=== PATIENT | female | born 1945 | race Caucasian/White ===

== ENCOUNTER 2021-06-26 16:26 | Emergency (ER) | payer BC, SELFPAY ==
--- NOTE | ~2021-06-26 | XR_ITS ---
EXAMINATION: X-RAY RIBS, RIGHT X-RAY SHOULDER, RIGHT CLINICAL INFORMATION: Status post fall, with pain COMPARISON: Chest x-ray 03/31/2021 TECHNIQUE: PA view of the chest and 3 additional views of the right-sided ribs. 3 views of the right shoulder FINDINGS: CHEST AND RIGHT RIBS: There are surgical clips over the right breast/axillary area. Normal cardiomediastinal silhouette. Adequate expansion of the lungs. No focal consolidation. No pleural effusion or pneumothorax. No acute osseous abnormality. Specifically no rib fracture is visualized. RIGHT SHOULDER: There is no acute fracture or dislocation. Mild narrowing of the glenohumeral and acromial clavicular joint spaces with associated hypertrophic change. There is a calcification of the rotator cuff tendons. XR/XR shoulder RT min 2V IMPRESSION: No acute disease within the chest. No acute osseous abnormality of the chest. Specifically, no rib fracture is visualized. Degenerative changes of the right shoulder. No acute fracture or dislocation. Calcific tendinitis.
--- NOTE | ~2021-06-26 | XR_ITS ---
EXAMINATION: X-RAY RIBS, RIGHT X-RAY SHOULDER, RIGHT CLINICAL INFORMATION: Status post fall, with pain COMPARISON: Chest x-ray 03/31/2021 TECHNIQUE: PA view of the chest and 3 additional views of the right-sided ribs. 3 views of the right shoulder FINDINGS: CHEST AND RIGHT RIBS: There are surgical clips over the right breast/axillary area. Normal cardiomediastinal silhouette. Adequate expansion of the lungs. No focal consolidation. No pleural effusion or pneumothorax. No acute osseous abnormality. Specifically no rib fracture is visualized. RIGHT SHOULDER: There is no acute fracture or dislocation. Mild narrowing of the glenohumeral and acromial clavicular joint spaces with associated hypertrophic change. There is a calcification of the rotator cuff tendons. XR/XR ribs RT min 3V w CXR1V IMPRESSION: No acute disease within the chest. No acute osseous abnormality of the chest. Specifically, no rib fracture is visualized. Degenerative changes of the right shoulder. No acute fracture or dislocation. Calcific tendinitis.
--- NOTE | ~2021-06-26 | CT_ITS ---
EXAMINATION: CT CHEST WITHOUT CONTRAST CLINICAL INFORMATION: Right upper lobe airspace opacity COMPARISON: None TECHNIQUE: Multidetector volumetric CT imaging of the chest was done. Axial MIP volume rendering provided. Sagittal and coronal reformatted images were obtained. This CT examination was performed using dose optimization techniques as appropriate, variously including the following: *Automated exposure control *Adjustment of mA and/or kV according to patient size (this includes techniques or standardized protocols for targeted exams where dose is matched to indication/reason for exam; i.e. extremities or head) *Use of iterative reconstruction technique DLP: 183 mGy-cm FINDINGS: BELT SEWER: Unremarkable LUNGS: There is nodularity in the right upper lobe subpleural as well as few micronodules seen through the left upper lobe and left lower lobe measured 0.6 cm in the left upper lobe, there is groundglass opacity nodule in the left lower lobe measured 2.5 cm there groundglass opacities micronodular nodularity in the lingula in the linear bronchiectasis with micronodularity in the right middle lobe is subpleural scarring seen on the right most likely related to postradiation therapy. MEDIASTINUM: The mediastinum is normal. PLEURA: There is no pleural effusion. No pleural mass or thickening. AXILLA: No lymphadenopathy. UPPER ABDOMEN: Limited for evaluation due to paucity of mesenteric fat. There is angiomyolipoma in the partially visualized left kidney measured 1.1 cm there is low-attenuation lesion in the interpolar area of left kidney questionably cyst OSSEOUS STRUCTURES: Unremarkable. CT/CT chest wo con IMPRESSION: Multiple small groundglass opacity nodules and right upper lobe and right middle lobe scarring. Groundglass opacities in the lingula and right middle lobe. Postsurgical/postradiation changes in subpleural area right lung. No mediastinal lymphadenopathy. 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 Fleischner guidelines were followed.
--- NOTE | ~2021-06-26 | CT_ITS ---
EXAMINATION: CT HEAD WITHOUT CONTRAST CT CERVICAL SPINE WITHOUT CONTRAST CLINICAL INFORMATION: Right-sided neck pain. Fall. COMPARISON: None available. TECHNIQUE: Contiguous axial imaging was performed from the skull base to vertex without intravenous administration of contrast. Contiguous axial imaging was performed from the upper chest through the skull base without intravenous administration of contrast. Coronal and sagittal reformats were obtained at the acquisition workstation. This CT examination was performed using dose optimization techniques as appropriate, variously including the following: *Automated exposure control. *Adjustment of mA and/or kV according to patient size (this includes techniques or standardized protocols for targeted exams where dose is matched to indication/reason for exam; i.e. extremities or head). *Use of iterative reconstruction technique. DLP: 851 mGy-cm FINDINGS: Head: There is no evidence of acute intracranial hemorrhage or edematous territorial infarction. A few foci of hypoattenuation in the periventricular and deep white matter are consistent with mild microangiopathy. Solitario-white matter differentiation is preserved. The ventricles are normal in size and configuration. No evidence for obstructive hydrocephalus. No abnormal mass effect or midline shift. No extra-axial fluid collections. Calcific atherosclerotic disease of the intracranial internal carotid and vertebral arteries. No hyperdense vessel sign. Small subcutaneous inclusion cyst along the left posterior vertex. No acute soft tissue or osseous abnormalities. Moderate mucosal thickening of the left sphenoid air cell. Mild mucosal thickening of the remaining paranasal sinuses. The mastoid air cells and middle ear cavities are clear. Bilateral lens extractions. Cervical Spine: The atlantooccipital and atlantoaxial articulations remain well aligned. Mild reversal the normal cervical lordosis centered on C6-C7. Otherwise, normal anatomic alignment. No evidence of acute fracture or subluxation. The vertebral body heights are maintained. Advanced degenerative disc disease at C6-C7. Moderate degenerative disc disease at all additional cervical levels. Associated disc/osteophyte complex formation. Facet and uncovertebral joint arthropathy leads to osseous encroachment on the neural foramina at C4-C5 and C6-C7. There is no prevertebral soft tissue swelling. Partially visualized soft tissue edema/hematoma in the right supraclavicular soft tissues deep to the inferior aspect of the sternocleidomastoid muscle. Otherwise, the thyroid gland and remaining cervical soft tissues are normal in appearance. Partially visualized irregular airspace opacity in the anterior subpleural aspect of the right upper lobe. CT/CT cervical spine wo con IMPRESSION: 1. No evidence of acute intracranial hemorrhage or edematous territorial infarction. Mild underlying microangiopathy. 2. No evidence of acute fracture or traumatic subluxation of the cervical spine. Moderate multilevel degenerative spondyloarthropathy of the cervical spine. 3. Partially visualized on this exam, there appears to be soft tissue edema/hematoma in the right supraclavicular soft tissues deep to the anterior aspect of the sternocleidomastoid muscle. 4. Partially visualized irregular airspace opacity in the anterior subpleural aspect of the right upper lobe. This is better assessed with dedicated CT chest.
[2021-06-26 16:33] VITALS: BP 162/84; PULSE 69; O2SAT 97; BMI 18.6
[2021-06-26 16:37] VITALS: BP 184/84; PULSE 67; RESP 18; TEMP 36.7; O2SAT 97
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
[2021-06-26] MEDS: Acetaminophen 325 MG TABLET 975 MG PO (17:28)
[2021-06-26 18:44] VITALS: BP 159/78; PULSE 62; RESP 18; TEMP 36.8; O2SAT 97
[2021-06-26 20:33] VITALS: BP 165/77; PULSE 88; RESP 16; O2SAT 98
[2021-06-26] MEDS: oxyCODONE HCl Immed Release 5 MG TABLET PO (20:41)
== END 2021-06-26 23:09 | disposition home or self-care (01) ==
PROVIDERS: Emergency Provider Emergency Medicine; PCP Family Medicine
DX: S20.213A Contusion of bilateral front wall of thorax, initial encounter (principal); S09.90XA Unspecified injury of head, initial encounter; M54.6 Pain in thoracic spine; M54.50 Low back pain, unspecified; M25.511 Pain in right shoulder; M54.2 Cervicalgia; W10.9XXA Fall (on) (from) unspecified stairs and steps, initial encounter; Y93.9 Activity, unspecified; Y92.9 Unspecified place or not applicable; Y99.9 Unspecified external cause status; Z79.899 Other long term (current) drug therapy
CPT/HCPCS: 70450; 71101; 71250; 72125; 73030; 99284

== ENCOUNTER 2024-08-01 02:13 | Emergency (ER) | payer BC, MEDICARE, SELFPAY ==
--- NOTE | ~2024-08-01 | CT_ITS ---
CLINICAL HISTORY: Left renal colic? Stone CT abdomen and pelvis without IV or oral contrast Comparison: None Findings: Reticular nodular opacities and bronchial wall thickening lung bases probably inflammatory. No dependent layering pleural effusions. The heart is not enlarged. 2 mm obstructing calculus left UVJ with renal edema and rgep-mr-eksaavek hydroureteronephrosis on the left. No evidence of obstructive uropathy on the right.Partially decompressed urinary bladder. Evaluation of the liver, spleen, adrenal glands and pancreas demonstrates no lesions. It should be noted that isodense masses may be obscured in the absence of intravenous contrast. No radiopaque gallstones. Increased stool burden. No pathologically enlarged lymph nodes . No ascites demonstrated. Postmenopausal uterine atrophy. No compression fractures. Degenerative spondylosis with minimal listhesis L4-5. Discogenic changes. Impression: 1. 2 mm obstructing calculus left UVJ with renal edema and [id number] hydroureteronephrosis on the left. 2. No evidence of obstructive uropathy on the right. 3. Increased stool burden. Reticular nodular opacities both lung bases probably inflammatory. Mild bronchial wall thickening. This document has been electronically signed by: Vicente Hahn MD on 08/01/2024 06:21:54
[2024-08-01 02:18] VITALS: BP 140/92; BP 187/96; PULSE 82; PULSE 94; RESP 22; TEMP 36.8; O2SAT 95; O2SAT 97; BMI 18.4
[2024-08-01 02:20] VITALS: TEMP 37.5
--- NOTE | 2024-08-01 02:20 | ECG_ITS ---
Test Reason : ABD PAIN Blood Pressure : */* mmHG Vent. Rate : 80 BPM Atrial Rate : 80 BPM P-R Int : 162 ms QRS Dur : 108 ms QT Int : 412 ms P-R-T Axes : 78 -68 56 degrees QTcB Int : 475 ms Normal sinus rhythm Left anterior fascicular block Minimal voltage criteria for LVH, may be normal variant ( Bala product ) Septal infarct , age undetermined Abnormal ECG When compared with ECG of 20-Jul-2011 12:22, No significant changes seen Referred By: Olga Huang Electronically Signed By: Christian Shine
[2024-08-01 02:35] LABS: MANUAL DIFF FLAG NO
[2024-08-01 02:36] LABS: Basophils Absolute Auto 0.1 X10*3/uL (0.0-0.2); Basophils Percent Auto 0.5 % (0-2); Eosinophils Percent Auto 0.3 % (0-4); Hematocrit 38.5 % (37.0-47.0); Hemoglobin 13.3 g/dl (12.0-16.0); Imm Gran Abs Auto 0.02 X10*3/uL (0.00-0.03); Imm Gran Pct Auto 0.2 % (0.0-0.4); Lymphocytes Absolute Auto 1.7 X10*3/uL (1.2-4.9); Lymphocytes Percent Auto 17.9 % (20-40); Mean Corpuscular HGB Conc 34.5 g/dl (31.0-35.0); Mean Corpuscular Hemoglobin 32.2 pg (27.0-33.0); Mean Corpuscular Volume 93.2 fL (80.0-98.0); Monocytes Absolute Auto 0.3 X10*3/uL (0.1-1.2); Monocytes Percent Auto 3.2 % (2-11); Neutrophils Absolute Auto 7.4 x10*3/uL (2.0-8.3); Neutrophils Percent Auto 77.9 % (45-73); Platelet Count 208 X10*3/uL (160-400); Red Blood Count 4.13 X10*6/uL (4.20-5.50); Red Cell Distribution Width 13.5 % (11.0-16.0); White Blood Count 9.6 X10*3/uL (4.8-10.8)
[2024-08-01 02:41] LABS: INTERNATIONAL NORM RATIO 1.1 (0.9-1.1); Prothrombin Time 12.4 SEC (10.9-12.4)
[2024-08-01] MEDS: Acetaminophen 1,000 MG/100 ML PIGGYBACK 400 MG IV (02:43)
[2024-08-01] MEDS: 0.9 % Sodium Chloride 1,000 ML 999 ML IV (02:43)
--- NOTE | 2024-08-01 02:50 | ED.ABDPAIN ---
HPI - Abdominal Pain General Chief Complaint: Abdominal Pain Stated Complaint: abdominal pain/urinary discomfort Time Seen by Provider: 08/01/24 02:34 Source: patient Mode of arrival: EMS Limitations: no limitations History of Present Illness ED Provider: HPI narrative: Patient no significant abdominal complaints in the past noticed sudden onset of left lower abdominal pain at 19:00 yesterday with nausea vomiting patient has been having dull pain in left flank area for last 2 weeks no history of kidney stone no history of diverticulitis no fever no chills patient has some loose bowels also earlier denies any urinary complaints Related Data Previous Rx's ?Medication ?Instructions ?Recorded tramadol 50 mg tablet 50 mg PO TID PRN pain #9 tabs 06/26/21 ibuprofen 600 mg tablet 600 mg PO Q6H PRN fever or pain 08/01/24 #30 tabs oxycodone 5 mg tablet 5 mg PO Q6H PRN pain #20 tabs 08/01/24 tamsulosin 0.4 mg capsule (Flomax) 0.4 mg PO BEDTIME #7 caps 08/01/24 Allergies Allergy/AdvReac Type Severity Reaction Status Date / Time From REGLAN Allergy Unknown AGITATION Uncoded 08/01/24 02:20 Review of Systems Review of Systems Yes all other systems are reviewed and are negative PMFSH Social History Social History Alcohol intake: current Alcohol intake frequency: 0-2 drinks per day Alcohol type: hard liquor Patient Tobacco Use Status: Never used Tobacco Smoked in Last 30 Days: No Use of substances other than those prescribed or required for medical reasons: Yes Substance Use Type: Marijuana Advance Directives: Yes Advance Directives Information Provided: Yes Advance Directives on File: No Do you have a plan to hurt others: No Plan Physical Exam ED Vital Signs: Vital Signs - 24 hr 08/01/24 02:18 08/01/24 02:20 08/01/24 04:51 Temperature 98.3 F 99.5 F 98.4 F Pulse Rate 82 81 Respiratory Rate 22 H 16 Blood Pressure 187/96 H 170/83 H Pulse Oximetry 95 95 Oxygen Delivery Method Room Air Room Air 08/01/24 06:24 Temperature Pulse Rate 84 Respiratory Rate 14 Blood Pressure 124/84 Pulse Oximetry 96 Oxygen Delivery Method Room Air BMI result Body Mass Index 18.4 Appearance: Alert. Oriented X3. No acute distress. Eyes: PERRLA, No Nystagmus ENT: Pharynx normal. Oral Mucosa moist Neck: Normal inspection. Neck supple. CVS: Normal heart rate and rhythm. Pulses normal. Respiratory: No respiratory distress. Equal air entry bilateral, no wheezing/rales/rhonchi Abdomen: Soft and deep tenderness left lower quadrant with guarding Bowel sounds are present, no mass palpable, less CVA tenderness Skin: Skin warm and dry. Normal skin color. Normal skin turgor. Extremities: No lower extremity edema. No calf tenderness Neuro: Oriented X 3. No motor deficit. No sensory deficit.No cerebellar signs , cranial nerves II-XII intact Medical Decision Making Medical Decision Making [facility] Narrative: Patient's sudden onset of left lower abdominal and left flank pain workup showed has a 2 mm UVJ stone patient's pain improved after IV hydration and pain medication at this time patient does not any pain patient advised to follow up with urologist Pain medication as prescribed Differential Diagnosis Differential Diagnoses: The differential diagnosis associated with the presentation includes Renal colic slight diverticulitis/UTI Admission/Observation Consideration of admission/observation: Escalation of care including admission/observation considered Lab Data [facility] Lab Attestation statement: I reviewed the patient's lab results. 08/01/24 02:31 08/01/24 02:31 Labs: Lab Results 08/01/24 08/01/24 08/01/24 Range/Units 02:30 02:31 02:45 WBC 9.6 (4.8-10.8) X10*3/uL RBC 4.13 L (4.20-5.50) X10*6/uL Hgb 13.3 (12.0-16.0) g/dl Hct 38.5 (37.0-47.0) % MCV 93.2 (80.0-98.0) fL MCH 32.2 (27.0-33.0) pg MCHC 34.5 (31.0-35.0) g/dl RDW 13.5 (11.0-16.0) % Plt Count 208 (160-400) X10*3/uL MPV 10.0 (9.4-12.3) fL Immature Gran % (Auto) 0.2 (0.0-0.4) % Neut % (Auto) 77.9 H (45-73) % Lymph % (Auto) 17.9 L (20-40) % Clinch % (Auto) 3.2 (2-11) % Eos % (Auto) 0.3 (0-4) % Baso % (Auto) 0.5 (0-2) % Lymph # (Auto) 1.7 (1.2-4.9) X10*3/uL Clinch # (Auto) 0.3 (0.1-1.2) X10*3/uL Eos # (Auto) 0.0 (0.0-0.4) X10*3/uL Baso # (Auto) 0.1 (0.0-0.2) X10*3/uL Abs Immat Gran (auto) 0.02 (0.00-0.03) X10*3/uL Absolute Neuts (auto) 7.4 (2.0-8.3) x10*3/uL Absolute Nucleated RBC 0.000 (0.0-0.012) X10*3/uL Nucleated RBC % (auto) 0.0 (0.0-0.2) /100WBC PT 12.4 (10.9-12.4) SEC INR 1.1 (0.9-1.1) Sodium 142 (135-145) mmol/L Potassium 4.5 (3.3-5.1) mmol/L Chloride 105 (96-108) mmol/L Carbon Dioxide 25 (22-29) mmol/L Anion Gap 17 (12-20) BUN 13 (9-16) mg/dL Creatinine 0.73 (0.5-1.4) mg/dL Estim Creat Clear Calc 48.7 Estimated GFR > 60 Random Glucose 167 H (60-115) mg/dL Lactic Acid 1.4 (0.5-2.0) mmol/L Calcium 9.9 (8.4-10.2) mg/dL Magnesium 2.1 (1.6-2.6) mg/dL Total Bilirubin 0.8 (0.0-1.0) mg/dL AST 29 (5-31) U/L ALT 20 (0-31) U/L Alkaline Phosphatase 96 (39-117) U/L Troponin I High Sens < 2.7 (<3.5-17.0) ng/L Total Protein 7.8 (6.5-8.0) g/dL Albumin 4.9 (3.5-5.0) g/dL Lipase 39 (8-78) U/L Urine Color Urine Appearance Urine pH (5.0-9.0) Ur Specific [place] (1.005-1.025) Urine Protein (Neg-Trace) mg/dL Urine Glucose (UA) (Negative) mg/dL Urine Ketones (Negative) mg/dL Urine Blood (Negative) Urine Nitrite (Negative) Ur Leukocyte Esterase (Negative) Urine RBC (0-2) /HPF Urine WBC (0-5) /HPF Ur Squamous Epith Cells (0-2) /HPF Urine Bacteria (None Seen) Hyaline Casts (0-2) /LPF Influenza Type A (PCR) NEGATIVE (Negative) Influenza Type B (PCR) NEGATIVE (Negative) RSV RNA Qual (PCR) NEGATIVE (Negative) SARS-CoV-2 RNA (RT-PCR) NEGATIVE (Negative) 08/01/24 Range/Units 03:17 WBC (4.8-10.8) X10*3/uL RBC (4.20-5.50) X10*6/uL Hgb (12.0-16.0) g/dl Hct (37.0-47.0) % MCV (80.0-98.0) fL MCH (27.0-33.0) pg MCHC (31.0-35.0) g/dl RDW (11.0-16.0) % Plt Count (160-400) X10*3/uL MPV (9.4-12.3) fL Immature Gran % (Auto) (0.0-0.4) % Neut % (Auto) (45-73) % Lymph % (Auto) (20-40) % Clinch % (Auto) (2-11) % Eos % (Auto) (0-4) % Baso % (Auto) (0-2) % Lymph # (Auto) (1.2-4.9) X10*3/uL Clinch # (Auto) (0.1-1.2) X10*3/uL Eos # (Auto) (0.0-0.4) X10*3/uL Baso # (Auto) (0.0-0.2) X10*3/uL Abs Immat Gran (auto) (0.00-0.03) X10*3/uL Absolute Neuts (auto) (2.0-8.3) x10*3/uL Absolute Nucleated RBC (0.0-0.012) X10*3/uL Nucleated RBC % (auto) (0.0-0.2) /100WBC PT (10.9-12.4) SEC INR (0.9-1.1) Sodium (135-145) mmol/L Potassium (3.3-5.1) mmol/L Chloride (96-108) mmol/L Carbon Dioxide (22-29) mmol/L Anion Gap (12-20) BUN (9-16) mg/dL Creatinine (0.5-1.4) mg/dL Estim Creat Clear Calc Estimated GFR Random Glucose (60-115) mg/dL Lactic Acid (0.5-2.0) mmol/L Calcium (8.4-10.2) mg/dL Magnesium (1.6-2.6) mg/dL Total Bilirubin (0.0-1.0) mg/dL AST (5-31) U/L ALT (0-31) U/L Alkaline Phosphatase (39-117) U/L Troponin I High Sens (<3.5-17.0) ng/L Total Protein (6.5-8.0) g/dL Albumin (3.5-5.0) g/dL Lipase (8-78) U/L Urine Color Yellow Urine Appearance Clear Urine pH 8.5 (5.0-9.0) Ur Specific [place] 1.010 (1.005-1.025) Urine Protein Negative (Neg-Trace) mg/dL Urine Glucose (UA) Negative (Negative) mg/dL Urine Ketones Negative (Negative) mg/dL Urine Blood Small (1+) H (Negative) Urine Nitrite Negative (Negative) Ur Leukocyte Esterase Negative (Negative) Urine RBC >20 H (0-2) /HPF Urine WBC 0-5 (0-5) /HPF Ur Squamous Epith Cells 0-2 (0-2) /HPF Urine Bacteria None Seen (None Seen) Hyaline Casts 0-2 (0-2) /LPF Influenza Type A (PCR) (Negative) Influenza Type B (PCR) (Negative) RSV RNA Qual (PCR) (Negative) SARS-CoV-2 RNA (RT-PCR) (Negative) Independent Interpretation I performed an independent interpretation of an: CT Scan Radiology Impression Discussion of test interpretation with radiology: I have reviewed the radiologist's reading. Medications Administered Discontinued Medications Generic Name Dose Route Start Last Admin Trade Name Freq PRN Reason Stop Dose Admin Sodium Chloride 1,000 mls @ 999 mls/hr 08/01/24 02:35 08/01/24 06:23 Ns IV 08/01/24 03:35 Infused .Q1H1M ONE Infusion Acetaminophen 1,000 mg in 100 mls @ 400 mls/hr 08/01/24 02:35 08/01/24 02:58 Ofirmev IV 08/01/24 02:49 Infused ONCE ONE Infusion Morphine Sulfate 4 mg 08/01/24 04:37 08/01/24 04:49 Morphine Sulfate 4 Mg/Ml Cartridge IVPUSH 08/01/24 04:38 4 mg ONCE ONE Administration Protocol Ondansetron HCl 4 mg 08/01/24 04:37 08/01/24 04:49 Ondansetron Hcl 4 Mg/2 Ml Vial IVPUSH 08/01/24 04:38 4 mg ONCE ONE Administration Discharge Plan Discharge Clinical Impression: Calculus of distal left ureter Patient Disposition: Home, Self-Care Instructions: Ureteral Stones (ED) Additional Instructions: Your small 2 mm stone in distal left ureter which likely going to pass Drink plenty of fluids Take ibuprofen/oxycodone for severe pain Flomax daily till you pass the stone Follow up with urologist Report to ER if pain gets worse Prescriptions: New oxycodone 5 mg tablet 5 mg PO Q6H PRN (Reason: pain) Qty: 20 0RF Rx Instructions: Partial Fill upon patient request. tamsulosin [Flomax] 0.4 mg capsule 0.4 mg PO BEDTIME Qty: 7 0RF ibuprofen 600 mg tablet 600 mg PO Q6H PRN (Reason: fever or pain) Qty: 30 0RF No Action tramadol 50 mg tablet 50 mg PO TID PRN (Reason: pain) Qty: 9 0RF Referrals: Neil Lazaro MD [Physician, Urology] Clinical Impression: Calculus of distal left ureter Print Language: Cameroonian
[2024-08-01 02:51] LABS: Alanine Aminotransferase 20 U/L (0-31); Albumin Level 4.9 g/dL (3.5-5.0); Alkaline Phosphatase 96 U/L (39-117); Anion Gap 17 (12-20); Aspartate Amino Transferase 29 U/L (5-31); Bilirubin Total 0.8 mg/dL (0.0-1.0); Blood Urea Nitrogen 13 mg/dL (9-16); Calcium 9.9 mg/dL (8.4-10.2); Carbon Dioxide 25 mmol/L (22-29); Chloride 105 mmol/L (96-108); Creatinine Clr Calc Pharmacy 48.7; Estimated Glomerular Filt Rate > 60; Glucose Random 167 mg/dL (60-115); Lipase 39 U/L (8-78); Magnesium 2.1 mg/dL (1.6-2.6); Potassium 4.5 mmol/L (3.3-5.1); Sodium 142 mmol/L (135-145); Total Protein 7.8 g/dL (6.5-8.0)
[2024-08-01 03:01] LABS: Troponin-I High Sensitivity < 2.7 ng/L (<3.5-17.0)
[2024-08-01 03:06] LABS: Lactic Acid 1.4 mmol/L (0.5-2.0)
[2024-08-01 03:27] LABS: Appearance Urine Clear; Color Urine Yellow; Glucose Urine UA Negative (Negative); Leukocyte Esterase Urine Negative (Negative); Nitrite Urine Negative (Negative); PH 8.5 (5.0-9.0); UMIC TRIGGER UACC YES; Urine Blood Small (1+) (Negative); Urine Ketones Negative (Negative); Urine Protein Negative (Neg-Trace)
[2024-08-01 03:28] LABS: Influenza A PCR NEGATIVE (Negative); Influenza B PCR NEGATIVE (Negative); Resp Syncy Virus RNA Qual PCR NEGATIVE (Negative); SARS COV2 PCR INHOUSE NEGATIVE (Negative)
[2024-08-01 03:29] LABS: Bacteria Urine None Seen (None Seen); Hyaline Casts Urine 0-2 /LPF (0-2); RBC Urine >20 /HPF (0-2); Squamous Epithelial Cell Urine 0-2 /HPF (0-2); WBC Urine 0-5 /HPF (0-5)
[2024-08-01] MEDS: Morphine Sulfate 4 MG/ML CARTRIDGE IVPUSH (04:49)
[2024-08-01] MEDS: ondansetron HCL 4 MG/2 ML VIAL IVPUSH (04:49)
[2024-08-01 04:51] VITALS: BP 170/83; PULSE 81; RESP 16; TEMP 36.9; O2SAT 95
--- NOTE | 2024-08-01 05:05 | PC.NURSE ---
pt biba from home reporting LLQ abd/hip pain x 1930. onset after eating dinner (chicken and rice), +N/V/D/Chills. also reports has had urgency to urinate but unable to. on arrival iv established. labs obtained. pt is hypertensive as documented, made aware of all above. appears very uncomfortable, rigors noted. ivf initiated and iv tylenol given per mar with improvement to sx. rectal temp was 99.5F. at this time pt medicated per apr for pain, pt reports intermittently pain improves but experiencing 8/[address] scan results. pt is axox4, lives at home alone, does not use assistive devices to ambulate. ambulatory with steady gait to bathroom and back to room. call bradshaw within reach.
[2024-08-01 06:24] VITALS: BP 124/84; PULSE 84; RESP 14; O2SAT 96
[2024-08-01 07:02] VITALS: BP 138/72; PULSE 69; RESP 16; TEMP 36.9; O2SAT 96
[2024-08-01] MEDS: Tamsulosin HCL 0.4 MG CAPSULE PO (07:02)
== END 2024-08-01 07:24 | disposition home or self-care (01) ==
PROVIDERS: Physician Assistant Medical; Emergency Provider Internal Medicine; PCP Family Medicine
DX: N20.1 Calculus of ureter (principal); R30.0 Dysuria; R10.2 Pelvic and perineal pain; R11.2 Nausea with vomiting, unspecified; R94.31 Abnormal electrocardiogram [ECG] [EKG]; Z03.818 Encounter for observation for suspected exposure to other biological agents ruled out; Z79.899 Other long term (current) drug therapy
CPT/HCPCS: 0241U; 36415; 74176; 80053; 81001; 83605; 83690; 83735; 84484; 85025; 85610; 87040; 93005; 96361; 96374; 96375; 99284; 99285; J0131; J2270; J2405

== ENCOUNTER → 2024-08-01 02:20 | Outpatient (BNV) | payer BC, MEDICARE, SELFPAY | PROVIDERS: Emergency Provider Internal Medicine; PCP Family Medicine; Visit Provider Internal Medicine Cardiovascular Disease | DX: I44.4 Left anterior fascicular block (principal) | CPT/HCPCS: 93010 ==

== ENCOUNTER → 2024-08-01 03:01 | Outpatient (BNV) | payer BC, MEDICARE, SELFPAY | PROVIDERS: Emergency Provider Internal Medicine; PCP Family Medicine; Visit Provider Radiology Diagnostic Radiology | DX: N13.2 Hydronephrosis with renal and ureteral calculous obstruction (principal); N28.9 Disorder of kidney and ureter, unspecified; N13.4 Hydroureter; R91.1 Solitary pulmonary nodule; K56.41 Fecal impaction | CPT/HCPCS: 74176 ==

== ENCOUNTER 2024-09-29 15:28 | Outpatient (AMB) | payer BC, MEDICARE, SELFPAY ==
--- NOTE | 2024-09-29 15:50 | A.OFFVIS_ITS ---
Intake Visit Reasons: Kidney Stone Intake Note: New Patient is present for kidney stones Urology Rx:Tamsulosin Blood Thinners:none Imaging completed: 08/01/24 Sample Taker Operator Required: No Accompanied by: Self / Same As Patient Allergies From REGLAN Allergy (Unknown, Uncoded 08/01/24 02:20) AGITATION HPI Comments Details: Oswaldo is a pleasant female. She is a patient of Dr. Patiño. She is seen for the following urologic conditions - nephrolithiasis Nephrolithiasis Initial presentation through emergency department Imaging - CT 09/03 distal left ureteric stone 2 mm with mild hydro nephrosis Discussion today regarding risk factors for stones including oxalate containing foods particularly Kale and spinach Recommend increased water intake Suggest vitamin B6 Six-month follow-up imaging PFSH Social History Alcohol intake: current Alcohol intake frequency: 0-2 drinks per day Alcohol type: hard liquor Patient Tobacco Use Status: Never used Tobacco Substance Use Type: Marijuana Review of Systems Const Denies chills and Denies fever(s) Card Reports no additional complaints and Denies syncope Resp Denies cough GI Denies abdominal pain and Denies heartburn Reports as per HPI and Denies change in libido Neuro Denies syncope Psych Denies change in libido Endo Denies change in libido Physical Exam Const General: cooperative, healthy appearing, comfortable and no acute distress Orientation/consciousness: patient oriented x3 HEENT Face and sinus: Yes normal facial exam Mouth: moist mucous membranes Neck Neck: Yes normal visual inspection, Yes full ROM and Yes trachea midline Chest Chest palpation & inspection: normal inspection of the chest Resp Effort & Inspection: normal respiratory effort, able to speak in complete sentences and no respiratory distress GI Inspection: Yes normal to inspection Back/Spine/Pelvis Cervical Spine: normal cervical lordosis Thoracic/Lumbar Spine: thoracic and lumbar spine normal to inspection Skin General skin exam: no rashes or lesions noted Neuro General: patient oriented x3, gait normal, tone normal and moves all extremities Extrem General: Yes normal to inspection and Yes capillary refill normal Assessment & Plan Assessment & Plan (1) Nephrolithiasis: Code(s): N20.0 - Calculus of kidney Category: Medical Plan Six-month follow-up ultrasound Orders: Orders US renal BI 6 Months N20.0 - Calculus of kidney Medications: Discontinued tramadol Discontinued Reason: Stopped on Transfer 50 mg PO TID PRN 9 tabs 0RF pain oxycodone Partial Fill upon patient request. Discontinued Reason: Patient no longer taking 5 mg PO Q6H PRN 20 tabs 0RF pain tamsulosin (Flomax) Discontinued Reason: Patient no longer taking 0.4 mg PO BEDTIME 7 caps 0RF Patient Instructions: This note is constructed using voice recognition software. While every effort has been made to ensure accuracy refrigerating engineer errors may have been included. Imaging studies, laboratory and physical exam results were discussed and reviewed in detail. No major barriers to patient understanding were identified. An opportunity to ask questions regarding the treatment plan was provided. All questions were answered. The patient expressed understanding and agreement with the above treatment plan. The patient is aware they should contact our office by phone for worsening of their current condition or the appearance of new urologic symptoms. Compliance is encouraged with any medications and followup testing that is ordered. It is a privilege to participate in the urologic care of your patient. If you have any questions or concerns regarding treatment for the above conditions, or other urologic issues, please do not hesitate to contact me. The office telephone contact is [phone]. Sincerely, Dr Neil Lazaro MD, [facility] - Urology Compassionate Specialist Care for the Genitourinary System Coding Level of Care Code New Pt Level 3 (78811) Diagnoses Nephrolithiasis N20.0
--- OUTSIDE RECORDS SUMMARY | 2024-09-29 16:20 | XMS_ITS | Patient Health Record ---
Author Organization [facility] Address [address] [place] [address] Care Team Providers Care Lockstitch Pocket Setter Name Role Phone Jose Mclain Primary Care Provider [phone] Reason For Referral No Information Medications Medication SIG (Take, Route, Frequency, Duration) Notes Start Date End Date Status clonazePAM 0.5 MG 0 Oral 1/2 tab hs prn s;leep; Duration: 30 03/05/2017 Active PRESERVISION AREDS TABLET 7,[id number] [id number] 0 1 bid; Duration: 30 *please review for potential update for e-prescription and drug interaction check* 03/05/2017 Active VALACYCLOVIR HCL 500 MG TABLET 0 1 tab qhs for genital herpes; Duration: 30 *please review for potential update for e-prescription and drug interaction check* 03/05/2017 Active MEDROXYPROGESTERONE 2.5 MG TAB 0 1 qhs; Duration: 30 *please review for potential update for e-prescription and drug interaction check* 03/05/[address] 20 MG CAPSULE 0 1 qd ac for gerd; Duration: 30 *please review for potential update for e-prescription and drug interaction check* ae:0 03/05/2017 Active ACETAMINOPHEN 500 MG CAPLET 0 2 tabs prn, uses 12-14/week; Duration: 30 *please review for potential update for e-prescription and drug interaction check* 03/05/2017 Active IRON 65 MG TABLET 325 MG (65 MG IRON) 0 1 qam; Duration: 30 *please review for potential update for e-prescription and drug interaction check* 03/05/2017 Active Estradiol 1 MG 0 Oral 1 qhs; Duration: 30 03/05/2017 Active Temazepam 15 MG 0 Oral 1 tab hs prn; Duration: 03/05/2017 Active Plan Of Treatment No Information Insurance Providers Payer Name Payer Address Payer Phone Subscriber Number Group Number Insured Name Patient Relationship to Insured Coverage Start Date Coverage End Date BCBS MEDICARE PPO [address] [place], [place] [id number] Oswaldo Flores Self - patient is the insured MEDICARE B [address] [facility] [place] [id number] Oswaldo Flores Self - patient is the insured
--- OUTSIDE RECORDS SUMMARY | 2024-09-29 16:20 | XMS_ITS | Encounter Summary ---
Author Organization [facility] Address [address] [place] [address] Phone Care Team Providers Care Pantry Worker Name Role Phone Erwin Tran MD Primary Care Provider [phone] Kristyn Rossi MD Unavailable [phone] Codie Hercules ELEMENTARY LIBRARIAN Unavailable [phone] Karolyn Moody MD Unavailable [phone] Harry Reid MD Unavailable [phone] Kristyn Rossi MD Unavailable [phone] Skye Patiño MD Primary Care Provider + [phone] Patrick Lomeli MD Unavailable + [phone] Skye Patiño MD Primary Care Provider [phone] Encounter Details Date Type Department Care Team (Late Contact Info) Description 11/01/2020 Procedure Pass [place] Admitting Dept - Virtual Department [address] [place] [id number] Social History Tobacco Use Types Packs/Day Years Used Date Smoking Tobacco: Former Smokeless Tobacco: Never Comments:two years as a teen Alcohol Use Standard Drinks/Week Comments Yes 0 (1 standard drink = 0.6 oz pur e alcohol) five nights a week light Comments No Sex and Gender Information Value Date Recorded Sex Assigned at Not on file Legal Sex Female 10:07 PM EDT Gender Identity Not on file Sexual Orientation Not on file documented as of this encounter Plan of Treatment Upcoming Encounters Date Type Department Care Team (Late Contact Info) Description 04/09/2024 Procedure Pass [address] [address] 10/12/2024 1:20 PM EDT Appointment [facility] [address] [place] [address] Kristyn Rossi MD [address] [place] [phone] 10/12/2024 2:00 PM EDT Office Visit [facility] at [address] [address] Kristyn Rossi MD [address] [place] [phone] 10/12/2024 2:40 PM EDT Infusion [facility] at [address] [address] Kristyn Rossi MD [address] [place] [phone] Gina Morejon, SUSY [address] [place] [phone] 11/23/2024 3:30 PM EDT Office Visit [facility] [address] [place] [address] [place] [address] Patrick Lomeli MD [address] [place] [address] 2nd [place] [address] [email or web address] 12/10/2024 1:45 PM EDT Appointment [address] [address] Kristyn Rossi MD [address] [place] [phone] [email or web address] documented as of this encounter Visit Diagnoses Not on filedocumented in this encounter Care Teams Pantry Worker Relationship Specialty Start Date End Date Erwin Tran MD [email or web address] PCP - General 11/25/16 08/27/22 Skye Patiño MD [address] [place] [id number] [email or web address] PCP - General Family Medicine 08/28/22 12/02/23 Skye Patiño MD [address] [place] [id number] [email or web address] PCP - General Family Medicine 12/03/23 Kristyn Rossi MD [address] [place] [phone] [email or web address] Primary Oncologist Medical Oncology 10/11/20 08/08/21 Codie Hercules, ELEMENTARY LIBRARIAN [address] [place] [phone] [email or web address] Nurse Practitioner Medical Oncology 11/09/20 04/08/24 Karolyn Moody MD [address] [place] [address], [address] [place] [address] [email or web address] General Surgery 11/14/20 Harry Reid MD [address] [place] [address] [email or web address] Radiation Oncology 11/14/20 Kristyn Rossi MD [address] [place] [phone] [email or web address] Primary Oncologist Medical Oncology 10/11/20 Patrick Lomeli MD [address] [place] [phone] [email or web address] Intensive Care 09/29/23 documented as of this encounter Additional Source Comments The information contained in this document represents components of the legal health record. It is not the complete legal health record.[facility]
== END 2024-09-29 16:34 | disposition home or self-care (01) ==
LOC: HO.HUSH 15:29
PROVIDERS: PCP Family Medicine; Visit Provider Urology
DX: N20.0 Calculus of kidney (principal)
CPT/HCPCS: 99203

== ENCOUNTER 2024-11-19 13:14 | Outpatient (AMB) | payer BC, SELFPAY ==
--- NOTE | 2024-11-19 13:15 | MHC.OFFVIS ---
Vital Signs 11/19/24 13:23 Height 5 ft 4.5 in Weight 99 lb BMI 16.7 BP 126/70 Blood Pressure Location Rt brachial Position Sitting Respiration 16 Pulse 68 Pulse Source Pulse Oximeter Pulse Oximetry (%) 97 Oxygen Delivery Method Room Air Intake Visit Reasons: migraine Video Game Engineer Required: No Allergies From [facility] Allergy (Unknown, Uncoded 11/19/24 13:23) AGITATION HPI Comments Details: Oswaldo is a 79-year-old female patient with a past medical history of migraine and sensorineural hearing loss here today for evaluation of ?atypical migraine? referred by her ENT provider. According to the patient today, she has been having upper left facial and left temporal headaches for many years. Her pain occurs almost daily. Her pain is almost always present them does fluctuate with some periods of intense pain. When she does have intense pain, her pain will come on with him 5-6 minutes. The pain can reach 9/10 but gnerally is 6/10. She does at times take tylenol. The tylenol does not take the pain away but it takes the edge off. Her pain starts under her left eye and wraps up into the left temporal area. The pain is dull and aching but can throb. When the headache is present she feels that she has to squint her left eye but denies tearing. She does feel that she has left sided congestion and has L>R rhinnorha though this is not clearly linked to periods of headache. She also had 1 episode hearing loss to the left ear which lasted a couple of days but hearing returned back to baseline on its own. She denies any vision changes though does have some light sensitivity which she feels these are baseline. Headaches are often aggravated by loud noises. She denies any dizziness, nausea, vomiting. She does have ongoing sensorineural hearing but episode of hearing loss which occurred in February 2024 did not change her baseline bilateral hearing deficit. Headache characteristics: Time of onset:Years Location:Left orbital and temporal Radiation:No Positional component:No Character:Dull, aching, and can at times throb Severity:Variable but can reach 9/10 Duration:Almost always present but more intense pain can last hours Frequency:Daily Acute aggravating factors:Loud noise Acute relieving factors:Tylenol helps marginally Associated symptoms:Left eye squinting, left nasal congestion and possibly tearing of left eye Aura:No Headache triggers:Unknown Other related background information: Sleep:Reports chronic insomnia. Uses clonopin and marijuana Stressors:Variable but feels that her stress may be slightly above average Hydration:16oz water, juice and herbal tea Caffeine intake:None Alcohol intake:4 drinks per week Substance use:Marijuana use Tobacco use:None Last eye exam:Within the last 3 months Last dental visit:Within the last year. She denies any clenching, grinding, or signs of TMD History of head injury:None Past medication trials: Nortriptyline- No benefit Tylenol-Some benefit Fioricet- Prior workup: MRI mentioned in ENT notes but no copy of MRI report included with referral paperwork. [facility] Medical History (Updated 11/19/24 @ 14:23 by Skye Rothman CNP) Chronic rhinitis Sensorineural hearing loss Migraine Social History Alcohol intake: current Alcohol intake frequency: 0-2 drinks per day Alcohol type: hard liquor Patient Tobacco Use Status: Never used Tobacco Substance Use Type: Marijuana Review of Systems Const All systems reviewed & are unremarkable except as noted in HPI and below Physical Exam Const General: cooperative, healthy appearing, comfortable and no acute distress Nutritional Appearance: well nourished Orientation/consciousness: patient oriented x3 Limitations: no limitations HEENT Head: Yes normal to inspection and Yes normocephalic Eyes General: appearance normal, both eyes and all related structures Visual Nieto: normal visual nieto by confrontation Alignment and Position: alignment normal Periorbital: periorbital findings normal Eyelids: Yes eyelids normal Conjunctivae: conjunctivae normal Sclerae: sclerae normal Back/Spine/Pelvis Other: L>R upper trapezius tightening. Left occipital notch tenderness. Neuro General: patient oriented x3 and deep tendon reflexes 2+ bilaterally Cranial nerves: Yes CN's II-XII intact bilaterally and Yes Facial sensation intact/muscles of mastication intact Cognition (Neuro): normal cognition Gait exam (Neuro): Normal gait present Motor exam (neuro): 5/5 motor strength present throughout and no tremor noted Sensory Exam: double simultaneous stimulation for sensation normal Romberg Test: Negative Pupils: Normal pupillary reactivity/response: bilateral Psych Appearance: grossly normal Mental Status: mental status grossly normal Speech and movement: Normal speech and movement present and Clear speech present Affect: normal affect Attitude: cooperative Thought process: Normal thought process present Thought content: Normal thought content present Insight: Good insight present (Psych) Judgement: Good judgement present (Psych) Assessment & Plan Assessment & Plan (1) Left-sided headache: Code(s): R51.9 - Headache, unspecified Category: Medical Plan Oswaldo is a 79-year-old female patient with a past medical history of migraine and sensorineural hearing loss here today for evaluation of ?atypical migraine? referred by her ENT provider. While headache make the description migraine-type headaches, the presence of some vague autonomic symptoms raise concern possible TAC such as hemicrania continua. Given the prolonged duration of her pain and fluctuating intensity of pain as well as the main location, I will 1st attempt to rule out hemicrania continua 1st with a trial indomethacin. If her headache is responsive to indomethacin, we could consider long-term management indomethacin with the patient would prefer not to be on long-term NSAIDs. Options could include gabapentin, topiramate, Botox therapy. She is not responsive to the indomethacin, we could consider trial of an anti CGRP agent. She does also have left occipital notch tenderness and she could be a good candidate for a left occipital nerve block -Obtain MRI brain ? at [facility] -Indomethacin trial -Omeprazole daily for PUD prophylaxis during indomethacin trial -Follow-up in 2 weeks Coding Level of Care Code New Pt Level 4 (09582) Diagnoses Left-sided headache R51.9
[2024-11-19 13:23] VITALS: BP 126/70; PULSE 68; RESP 16; O2SAT 97; BMI 16.7
== END 2024-11-19 14:06 | disposition home or self-care (01) ==
LOC: HO.HSM 13:14
PROVIDERS: PCP Family Medicine; Visit Provider Nurse Practitioner
DX: R51.9 Headache, unspecified (principal)
CPT/HCPCS: 99204

== ENCOUNTER 2024-12-03 14:49 | Outpatient (AMB) | payer BC, SELFPAY ==
--- OUTSIDE RECORDS SUMMARY | 2012-07-13 | XMS_ITS | Encounter Summary ---
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 Role Phone Unavailable Primary Care Provider Unavailabl e Encounter Details Date Type Department Care Team (Late st Contact Info) Description 07/13/2012 Hospital Encounter [facility],Outside Imaging [address] [place] [address] System, Provider Not In, [facility] [address] [address] Social History Tobacco Use Types Packs/Day Years [...] Care Team (Late st Contact Info) Description 04/09/2024 Procedure Pass [address] [address] 12/10/2024 1:45 PM EDT Appointment [address] [address] Kristyn Rossi MD [address] [place] [phone] 01/25/2025 8:30 AM EST Office Visit [facility] [address] [place] [phone] Patrick Lomeli MD [address] [place] [phone] [email or web address] documented as of this encounter Procedures Procedure [...] It is not the complete legal health record.[facility]
--- NOTE | 2024-12-03 14:47 | A.OFFVIS_ITS ---
Vital Signs 12/03/24 14:55 12/03/24 14:55 Height 5 ft 4.5 in Weight 105 lb BMI 17.7 BP 151/68 H 142/68 H Blood Pressure Location Rt brachial Lt brachial Position Sitting Sitting Respiration 16 Pulse 58 Pulse Source Pulse Oximeter Pulse Oximetry (%) 97 Oxygen Delivery Method Room Air Intake Visit Reasons: 2 wk follow up Crushing Foreman Required: No Allergies From [facility] Allergy (Unknown, Uncoded 11/19/24 13:23) AGITATION HPI Comments Details: Oswaldo is a 79-year-old female patient with a past medical history of migraine and sensorineural hearing loss here today for a follow-up visit. She was here approximately 2 weeks ago for an initial evaluation of ?atypical migraine? referred by her ENT provider. According to the patient at the time of our initial visit: she has been having upper left facial and left temporal headaches for many years. Her pain occurs almost daily. Her pain is almost always present them does fluctuate with some periods of intense pain. When she does have intense pain, her pain will come on with him 5-6 minutes. The pain can reach 9/10 but gnerally is 6/10. She does at times take tylenol. The tylenol does not take the pain away but it takes the edge off. Her pain starts under her left eye and wraps up into the left temporal area. The pain is dull and aching but can throb. When the headache is present she feels that she has to squint her left eye but denies tearing. She does feel that she has left sided congestion and has L>R rhinnorha though this is not clearly linked to periods of headache. She also had 1 episode hearing loss to the left ear which lasted a couple of days but hearing returned back to baseline on its own. She denies any vision changes though does have some light sensitivity which she feels these are baseline. Headaches are often aggravated by loud noises. 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 She tells me today that upon initiation of the indomethacin, she had complete resolution of her headache the next day following her 1st initial dose of indomethacin 25 mg 3 times daily. She had some difficulty understanding the protocol and did continue to increase her dose. Furthermore, she did take a 24 hour vacation from the indomethacin during her trial and again developed a headache. Again, after resuming the indomethacin, she was completely headache-free. She has also been taking the omeprazole daily and has been tolerating the indomethacin well without any upset stomach. Other related background information: Sleep:Reports chronic insomnia. Uses clonopin and marijuana Stressors:Variable but feels that her stress may be slightly above average Hydration:16oz water, juice and herbal tea Caffeine intake:None Alcohol intake:4 drinks per week Substance use:Marijuana use Tobacco use:None Last eye exam:Within the last 3 months Last dental visit:Within the last year. She denies any clenching, grinding, or signs of TMD History of head injury:None Past medication trials: Nortriptyline- No benefit Tylenol-Some benefit Fioricet- Prior workup: MRI mentioned in ENT notes but no copy of MRI report included with referral paperwork. [facility] Medical History (Updated 12/04/24 @ 14:05 by Skye Rothman CNP) Chronic rhinitis Sensorineural hearing loss Migraine Social History Alcohol intake: current Alcohol intake frequency: 0-2 drinks per day Alcohol type: hard liquor Patient Tobacco Use Status: Never used Tobacco Substance Use Type: Marijuana Review of Systems Const All systems reviewed & are unremarkable except as noted in HPI and below Physical Exam Vital Signs: Last Vital Signs Pulse 58 12/03/24 14:55 Resp 16 12/03/24 14:55 BP 142/68 H 12/03/24 14:55 Pulse Ox 97 12/03/24 14:55 Oxygen Delivery Method Room Air 12/03/24 14:55 BMI result Body Mass Index 17.7 Const General: cooperative, healthy appearing, comfortable and no acute distress Nutritional Appearance: well nourished Orientation/consciousness: patient oriented x3 Limitations: no limitations HEENT Head: Yes normal to inspection and Yes normocephalic Eyes General: appearance normal, both eyes and all related structures Visual Nieto: normal visual nieto by confrontation Alignment and Position: alignment normal Periorbital: periorbital findings normal Eyelids: Yes eyelids normal Conjunctivae: conjunctivae normal Sclerae: sclerae normal Back/Spine/Pelvis Other: L>R upper trapezius tightening. Left occipital notch tenderness. Neuro General: patient oriented x3 and deep tendon reflexes 2+ bilaterally Cranial nerves: Yes CN's II-XII intact bilaterally and Yes Facial sensation intact/muscles of mastication intact Cognition (Neuro): normal cognition Gait exam (Neuro): Normal gait present Motor exam (neuro): 5/5 motor strength present throughout and no tremor noted Sensory Exam: double simultaneous stimulation for sensation normal Romberg Test: Negative Pupils: Normal pupillary reactivity/response: bilateral Psych Appearance: grossly normal Mental Status: mental status grossly normal Speech and movement: Normal speech and movement present and Clear speech present Affect: normal affect Attitude: cooperative Thought process: Normal thought process present Thought content: Normal thought content present Insight: Good insight present (Psych) Judgement: Good judgement present (Psych) Assessment & Plan Assessment & Plan (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 We discussed options for continued management. She has in the past tried gabapentin which gave her adverse effects and nortriptyline did help some but only marginally. We decided to try indomethacin at very low dose for maintenance therapy. We will start with 25 mg daily and titrate the dose up or down depending on the response. Ideally, we could try 25 mg every other day for maintenance therapy if she responds well to that though we could consider increasing her dose to 25 mg twice daily if needed. I will continue her omeprazole for protection against peptic ulcer disease. We will follow up in 1 month. 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
[2024-12-03 14:55] VITALS: BP 142/68; BP 151/68; PULSE 58; RESP 16; O2SAT 97; BMI 17.7
--- OUTSIDE RECORDS SUMMARY | 2024-12-03 16:31 | XMS_ITS | Encounter Summary ---
Author Organization [facility] Address [address] [address] Phone Care Team Providers Care Generation Mechanic Helper Name Role Phone Codie Hercules NP Unavailable [phone] Karolyn Moody MD Unavailable [phone] Harry Reid MD Unavailable [phone] Kristyn Rossi MD Unavailable Skye Patiño MD Primary Care Provider [phone] Patrick Lomeli MD Unavailable Skye Patiño MD Primary Care Provider [phone] Neil Lazaro MD Unavailable Encounter Details Date Type Department Care Team (Late st Contact Info) Description 04/30/2023 Prep for Surgery [facility] Orthopedics & Sports Medicine [address] [place] [phone] Diana Godinez MD [address] [place] [address] Orthopedics & Sports Medicine, [facility]. [place], [place] [id number] [email or web address] Social History Tobacco Use Types Packs/Day Years Used Date Smoking Tobacco: Former Smokeless Tobacco: Never Comments:smoked for two year s as a teen Alcohol Use Standard Drinks/Week Comments Yes 0 (1 standard drink = 0.6 oz pure alcohol) less than five nights a week light Education Answer Date Recorded Are you interested in more education? Not on ada e 06/07/2022 Are you concerned about learning? Not on file 06/07/2022 No 06/07/2022 No 06/07/2022 Digital Access Answer Date Recorded No 07/06/2022 No 07/06/2022 Reliable internet access at home? Not on file 07/06/2022 Device with a working camera? Not on file Comments No Sex and Gender Information Value Date Recorded Sex Assigned at Not on file Legal Sex Female 10:07 PM EDT Gender Identity Not on file Sexual Orientation Not on file documented as of this encounter Plan of Treatment Upcoming Encounters Date Type Department Care Team (Late st Contact Info) Description 04/09/2024 Procedure Pass [address] [address] 12/10/2024 1:45 PM EDT Appointment [address] [address] Kristyn Rossi MD [address] [place] [email or web address] 01/25/2025 8:30 AM EST Office Visit [facility] Pulmonary, Allergy and Critical Care Medicine [address] [place] [address] Patrick Lomeli MD [address] [place] [phone] [email or web address] documented as of this encounter Visit Diagnoses Not on filedocumented in this encounter Care Teams Generation Mechanic Helper Relationship Specialty Start Date End Date Skye Patiño MD [address] [place] [phone] PCP - General Family Medicine 08/28/22 12/02/23 Skye Patiño MD [address] [place] [phone] [email or web address] PCP - General Family Medicine 12/03/23 Codie Hercules NP [address] [place] [address] [email or web address] Nurse Practitioner Medical Oncology 11/09/20 04/08/24 Karolyn Moody MD [address] [place] [phone] General Surgery 11/14/20 Harry Reid MD [address] [place] [address] [email or web address] Radiation Oncology 11/14/20 Kristyn Rossi MD [address] [place] [address] Primary Oncologist Medical Oncology 10/11/20 Patrick Lomeli MD [address] [place] [address] [email or web address] Intensive Care 09/29/23 Neil Lazaro MD [address] [place] [address] [place] [address] Urology 10/12/24 documented as of this encounter Additional Source Comments The information contained in this document represents components of the legal health record. It is not the complete legal health record.[facility]
--- OUTSIDE RECORDS SUMMARY | 2024-12-03 16:31 | XMS_ITS | Encounter Summary ---
Author Organization [facility] Address [address] [address] Phone Care Team Providers Care Wool Merchant Name Role Phone Erwin Tran MD Primary Care Provider [phone] Kristyn Rossi MD Unavailable [phone] Codie Hercules NP Unavailable [phone] Karolyn Moody MD Unavailable [phone] Harry Reid MD Unavailable [phone] Kristyn Rossi MD Unavailable Skey Patiño MD Primary Care Provider Patrick Lomeli MD Unavailable [phone] Skye Patiño MD Primary Care Provider + [phone] Neil Lazaro MD Unavailable Reason for Referral * Outpatient Procedure - Closed Specialty Diagnoses / Procedures Referred By Contbarrett t Referred To Contact Radiology Diagnoses Breast mass, right Procedures Mammogram Diagnostic Post Procedure (Right) Erwin Tran MD Phone: tel: fax: [email or web address] Referral ID Status Reason Start Date Expiration Date Visits Re quested Visits Authorized [id number] Closed 10/05/2020 10/05/2021 1 1 Encounter Details Date Type Department Care Team (Late st Contact Info) Description 10/05/2020 Ancillary Orders Virtual Department [address] [place] [phone] Erwin Tran MD [address] [place] [phone] [email or web address] Breast mass, right Social History Tobacco Use Types Packs/Day Years Used Date Smoking Tobacco: Never Assessed Comments Unknown Sex and Gender Information Value Date Recorded Sex Assigned at Not on file Legal Sex Female 10:07 PM EDT Gender Identity Not on file Sexual Orientation Not on file documented as of this encounter Plan of Treatment Upcoming Encounters Date Type Department Care Team (Late Contact Info) Description 04/09/2024 Procedure Pass [address] [address] 12/10/2024 1:45 PM EDT Appointment [address] [address] Kristyn Rossi MD [address] [place] [phone] [email or web address] 01/25/2025 8:30 AM EST Office Visit [facility] Pulmonary, Allergy and Critical Care Medicine [address] [place] [address] Patrick Lomeli MD [address] [place] [id number] [email or web address] documented as of this encounter Results * BI MAMMOGRAM DIAGNOSTIC POST PROCEDURE WITH TOMOSYNTHESIS WITH CAD (RIGHT) (10/05/2020 9:36 AM EDT) Anatomical Region Laterality Modality Breast Right, Breast Bilateral Right M ammography 10/05/2020 10:1 1 AM EDT Impressions 10/05/2020 10:12 AM EDT Concordance between mammographic and sonographic findings. No evidence of immediate complication. Narrative 10/05/2020 10:12 AM EDT Full field digital CC and MLO views of the right breast are obtained with tomosynthesis as well as 2-D C view imaging following ultrasound-guided biopsy. Comparison made to prior study of September 26. Venous marker in place, centered within the mammographic finding indicating concordance between mammographic and sonographic abnormalities. No evidence of hematoma. No other significant change appreciated. Procedure Note Tristen Abel MD - 10/05/2020 Full field digital CC and MLO views of the right breast are obtained withtomosynthesis as well as 2-D C view imaging following ultrasound- guidedbiopsy. Comparison made to prior study of September 26. Venous marker in place, centered within the mammographic findingindicating concordance between mammographic and sonographic abnormalities.No evidence of hematoma. No other significant change appreciated. IMPRESSION: Concordance between mammographic and sonographic findings. No evidence ofimmediate complication. Erwin Tran MD IMG MG EXAMS Final Result documented in this encounter Visit Diagnoses Diagnosis Breast mass, right Lump or mass in breast Breast mass, right Lump or mass in breast documented in this encounter Care Teams Wool Merchant Relationship Specialty Start Date End Date Erwin Tran MD PCP - General 11/25/16 08/27/22 Skye Patiño MD [address] [place] [address] PCP - General Family Medicine 08/28/22 12/02/23 Skye Patiño MD [address] [place] [phone] PCP - General Family Medicine 12/03/23 Kristyn Rossi MD [address] [place] [phone] [email or web address] Primary Oncologist Medical Oncology 10/11/20 08/08/21 Codie Hercules NP [address] [place] [address] [email or web address] Nurse Practitioner Medical Oncology 11/09/20 04/08/24 Karolyn Moody MD [address] [address] [email or web address] Surgery 11/14/20 Harry Reid MD [address] [place] [address] [email or web address] Radiation Oncology 11/14/20 Kristyn Rossi MD [address] [place] [address] Primary Oncologist Medical Oncology 10/11/20 Patrick Lomeli MD [address] [place] [address] [email or web address] Intensive Care 09/29/23 Neil Lazaro MD [address] [place] [address] [place] [address] Urology 10/12/24 documented as of this encounter Additional Source Comments The information contained in this document represents components of the legal health record. It is not the complete legal health record.[facility]
--- OUTSIDE RECORDS SUMMARY | 2024-12-03 16:31 | XMS_ITS | Encounter Summary ---
Author Organization [facility] Address [address] [address] Phone Care Team Providers Care Game Manager Name Role Phone Karolyn Moody MD Unavailable Harry Reid MD Unavailable [phone] Kristyn Rossi MD Unavailable [phone] Patrick Lomeli MD Unavailable [phone] Skye Patiño MD Primary Care Provider [phone] Neil Lazaro MD Unavailable [phone] Encounter Details Date Type Department Care Team (Late st Contact Info) Description 10/27/2024 Procedure Pass [facility], Ct Scan - [address] [address] Social History Tobacco Use Types Packs/Day Years [...] st Contact Info) Description 04/09/2024 Procedure Pass [address] [address] 12/10/2024 1:45 PM EDT Appointment [address] [address] Kristyn Rossi MD [address] [place] [address] 01/25/2025 8:30 AM EST Office Visit [facility] Pulmonary, Allergy and Critical Care Medicine [address] [place] [address] Patrick Lomeli MD [address] [place] [address] dulce documented as of this encounter Visit Diagnoses Not on filedocumented in this encounter Care Teams Game Manager Relationship Specialty Start Date End Date Skye Patiño MD [address] [place] [address] PCP - General Family Medicine 12/03/23 Karolyn Moody MD [address] [place] [address] General Surgery 11/14/20 Harry Reid MD [address] [place] [address] [email or web address] Radiation Oncology 11/14/20 Kristyn Rossi MD [address] [place] [address] Primary Oncologist Medical Oncology 10/11/20 Patrick Lomeli MD [address] [place] [address] [email or web address] Intensive Care 09/29/23 Neil Lazaro MD [address] [place] [address] [place] [address] Urology 10/12/24 documented as of this encounter Additional Source Comments The information contained in this document represents components of the legal health record. It is not the complete legal health record.[facility]
--- OUTSIDE RECORDS SUMMARY | 2024-12-03 16:31 | XMS_ITS | Encounter Summary ---
Author Organization [facility] Address [address] [place] [address] Phone Care Team Providers Care Web Editor Name Role Phone Erwin Tran MD Primary Care Provider Kristyn Rossi MD Unavailable Codie Hercules NP Unavailable [phone] Karolyn Moody MD Unavailable [phone] Harry Reid MD Unavailable [phone] Kristyn Rossi MD Unavailable Skye Patiño MD Primary Care Provider Patrick Lomeli MD Unavailable [phone] Skye Patiño MD Primary Care Provider [phone] Neil Lazaro MD Unavailable Encounter Details Date Type Department Care Team (Latest Contact Info) Description 02/19/2017 Transcribe Orders [facility] [address] 2[address] [place] [address] Wilmer Hathaway MD [address] [address] Abdominal pain, left lower quadrant (Primary Dx); Colmenares's esophagus with dysplasia Social History Tobacco Use Types Packs/Day Years [...] st Contact Info) Description 04/09/2024 Procedure Pass [address] [address] 12/10/2024 1:45 PM EDT Appointment [address] [address] Kristyn Rossi MD [address] [place] [address] 01/25/2025 8:30 AM EST Office Visit [facility], Allergy and Critical Care Medicine [address] [place] [address] [place] [address] Patrick Lomeli MD [address] [place] [address] 2nd [place] [address] dulce documented as of this encounter Results * C-Reactive Protein (02/19/2017 11:49 AM EST) Pathologist [facility] C REACTIVE PROTEIN 0.3 0 - 0.5 mg/L [facility] Blood 02/19/2017 11:4 9 AM EST 02/19/2017 11:54 AM EST us Wilmer Hathaway MD LAB BLOOD ORDERABLES Final R esult [address] [address] * LFTs (hepatic panel) (02/19/2017 11:49 AM EST) Pathologist [facility] ALKALINE PHOSPHATASE 69 39 - 117 U/L [facility] TOTAL BILIRUBIN 0.4 0 - 1.2 mg/dL [facility] DIRECT BILIRUBIN <0.2 0 - 0.3 mg/dL [facility] Bilirubin (Indirect) NOT CALCULATED 0 - 1.5 mg/dL [facility] AST 18 0 - 37 U/L [facility] ALT 11 0 - 40 U/L [facility] TOTAL PROTEIN 6.6 6.5 - 8.0 g/dL [facility] ALBUMIN 4.1 3.9 - 4.8 g/dL [facility] GLOBULIN 2.5 1 - 4.8 g/dL [facility] A/G Ratio 1.64 1.00 - 4.80 RATIO [facility] Blood 02/19/2017 11:4 9 AM EST 02/19/2017 11:54 AM EST us Wilmer Hathaway MD LAB BLOOD ORDERABLES Final R esult Performing Organization Address [facility]/ZIP Co de Phone Number [address] [address] * Tissue transglutaminase IgA (02/19/2017 11:49 AM EST) TTG IGA ANTIBODY <1.2 <4.0 (Negative) U/mL [facility] DPT OF LAB MED AND PAT+ Blood 02/19/2017 11:4 9 AM EST 02/19/2017 11:54 AM EST us Wilmer Hathaway MD LAB BLOOD ORDERABLES Final R esult Performing Organization Address City/[facility]/ZIP Co de Phone Number [facility] DPT OF LAB MED AND PAT+ [address] [place] [address] * Immunoglobulin A (02/19/2017 11:49 AM EST) IgA 87 70 - 400 mg/dL [facility] Blood 02/19/2017 11:4 9 AM EST 02/19/2017 11:54 AM EST us Wilmer Hathaway MD LAB BLOOD ORDERABLES Final R esult Performing Organization Address City/[facility]/ZIP Co de Phone Number [address] [address] * Gliadin deamidated antibody, IgG/IgA (02/19/2017 11:49 AM EST) Gliadin Ab, IGA <10.0 <20.0 (Negative) U [facility] DPT OF LAB MED AND PAT+ GLIADIN AB IGG <10.0 <20.0 (Negative) U [facility] DPT OF LAB MED AND PAT+ Blood 02/19/2017 11:4 9 AM EST 02/19/2017 11:54 AM EST us Wilmer Hathaway MD LAB BLOOD ORDERABLES Final R esult [facility] DPT OF LAB MED AND PAT+ [address] [place] [address] * (ABNORMAL) CBC and differential (02/19/2017 11:49 AM EST) WBC 5.31 3.40 - 11.20 K/uL [facility] RBC 3.68(L) 3.80 - 4.80 M/uL [facility] HGB 11.8(L) 12.0 - 15.0 g/dL [facility] HCT 35.7(L) 36.0 - 46.0 % [facility] PLT 270 130 - 400 K/uL [facility] MCV 97.0 79.0 - 98.0 fL [facility] MCH 32.1 27.0 - 34.8 pg [facility] MCHC 33.1 31.5 - 36.0 g/dL [facility] RDW 13.5 10.8 - 14.6 % [facility] MPV 10.5 9.4 - 12.4 fl [facility] NRBC 0.00 /100 WBCs [facility] ABSOLUTE NRBC 0.00 K/uL [facility] DIFF METHOD Auto [facility] NEUTS 51.2 45.30 - 77.70 % [facility] LYMPHS 39.0 12.30 - 39.70 % [facility] MONOS 6.2 4.10 - 12.80 % [facility] EOS 2.3 0 - 7.2 % [facility] BASOS 0.9 0 - 2.80 % [facility] Granulocytes, immature (%) 0.4 0.0 - 0.9 % [facility] ABSOLUTE NEUTS 2.72 1.40 - 7.70 K/uL [facility] ABSOLUTE LYMPHS 2.07 0.60 - 3.20 K/uL [facility] ABSOLUTE MONOS 0.33 0.11 - 0.59 K/uL [facility] ABSOLUTE EOS 0.12 0.01 - 0.50 K/uL [facility] ABSOLUTE BASOS 0.05 0.00 - 0.08 K/uL [facility] Granulocytes, immature 0.02 0.00 - 0.05 K/uL [facility] Blood 02/19/2017 11:4 9 AM EST 02/19/2017 11:54 AM EST us Wilmer Hathaway MD LAB BLOOD ORDERABLES Final R esult [address] [address] documented in this encounter Visit Diagnoses Diagnosis Abdominal pain, left lower quadrant- Primary Colmenares's esophagus with dysplasia documented in this encounter Care Teams Web Editor Relationship Specialty Start Date End Date Erwin Tran MD [email or web address] PCP - General 11/25/16 08/27/22 Skye Patiño MD [address] [place] [address] [email or web address] PCP - General Family Medicine 08/28/22 12/02/23 Skye Patiño MD [address] [place] [address] [email or web address] PCP - General Family Medicine 12/03/23 Kristyn Rossi MD [address] [place] [address] [email or web address] Primary Oncologist Medical Oncology 10/11/20 08/08/21 Codie Hercules NP [address] [place] [address] [email or web address] Nurse Practitioner Medical Oncology 11/09/20 04/08/24 Karolyn Moody MD [address] [place] [address] [email or web address] General Surgery 11/14/20 Harry Reid MD [address] [place] [address] [email or web address] Radiation Oncology 11/14/20 Kristyn Rossi MD [address] [place] [address] [email or web address] Primary Oncologist Medical Oncology 10/11/20 Patrick Lomeli MD [address] [place] [address] [email or web address] Intensive Care 09/29/23 Neil Lazaro MD [address] [place] [address] [place] [address] Urology 10/12/24 documented as of this encounter Additional Source Comments The information contained in this document represents components of the legal health record. It is not the complete legal health record.[facility]
--- OUTSIDE RECORDS SUMMARY | 2024-12-03 16:31 | XMS_ITS | Encounter Summary ---
Author Organization [facility] Address [address] [address] Phone Care Team Providers Care Sheet Metal Engineer Name Role Phone Erwin Tran MD Primary Care Provider [phone] Codie Hercules SALON SHAMPOO ASSISTANT Unavailable [phone] Karolyn Moody MD Unavailable [phone] Harry Reid MD Unavailable [phone] Kristyn Rossi MD Unavailable [phone] Skye Patiño MD Primary Care Provider + [phone] Patrick Lomeli MD Unavailable [phone] Skye Patiño MD Primary Care Provider + [phone] Neil Lazaro MD Unavailable Encounter Details Date Type Department Care Team (Late Contact Info) Description 09/17/2021 Procedure Pass [facility] Endoscopy Admitting Dept Virtual Department [address] [place] [address] Social History Tobacco Use Types Packs/Day Years [...] (Late Contact Info) Description 04/09/2024 Procedure Pass [facility], Mammography- [address] [address] 12/10/2024 1:45 PM EDT Appointment [facility], [facility]- [address] [address] Kristyn Rossi MD [address] [place] [email or web address] 01/25/2025 8:30 AM EST Office Visit [facility] Pulmonary, Allergy and Critical Care Medicine [address] [place] [address] [place], [place] [phone] Patrick Lomeli MD [address] [place] [address] dulce documented as of this encounter Visit Diagnoses Not on filedocumented in this encounter Care Teams Sheet Metal Engineer Relationship Specialty Start Date End Date Erwin Tran MD PCP - General 11/25/16 08/27/22 Skye Patiño MD [address] [place] [address] PCP - General Family Medicine 08/28/22 12/02/23 Skye Patiño MD [address] [place] [address] PCP - General Family Medicine 12/03/23 Codie Hercules NP [address] [place] [address] Nurse Practitioner Medical Oncology 11/09/20 04/08/24 Karolyn Moody MD [address] [address] [email or web address] General Surgery 11/14/20 Harry Reid MD [address] [place] [address] [email or web address] Radiation Oncology 11/14/20 Kristyn Rossi MD [address] [place] [address] Primary Oncologist Medical Oncology 10/11/20 Patrick Lomeli MD [address] [place] [address] [email or web address] Intensive Care 09/29/23 Neil Lazaro MD [address] [place] [address] [place] [address] Urology 10/12/24 documented as of this encounter Additional Source Comments The information contained in this document represents components of the legal health record. It is not the complete legal health record.[facility]
--- OUTSIDE RECORDS SUMMARY | 2024-12-03 16:31 | XMS_ITS | Encounter Summary ---
Author Organization [facility] Address [address] [address] Phone Care Team Providers Care Compliance Consultant Name Role Phone Codie Hercules NP Unavailable [phone] Karolyn Moody MD Unavailable [phone] Harry Reid MD Unavailable [phone] Kristyn Rossi MD Unavailable [phone] Skye Patiño MD Primary Care Provider Patrick Lomeli MD Unavailable [phone] Skye Patiño MD Primary Care Provider Neil Lazaro MD Unavailable [phone] Encounter Details Date Type Department Care Team (Late st Contact Info) Description 10/21/2023 Procedure Pass [facility], Ct Scan - [address] [address] Social History Tobacco Use Types Packs/Day Years [...] st Contact Info) Description 04/09/2024 Procedure Pass [address] [address] 12/10/2024 1:45 PM EDT Appointment [address] [address] Kristyn Rossi MD [address] [place] [address] 01/25/2025 8:30 AM EST Office Visit [facility]monary, Allergy and Critical Care Medicine [address] [place] [address] Patrick Lomeli MD [address] [place] [address] dulce documented as of this encounter Visit Diagnoses Not on filedocumented in this encounter Care Teams Compliance Consultant Relationship Specialty Start Date End Date Skye Patiño MD [address] [place] [address] PCP - General Family Medicine 08/28/22 12/02/23 Skye Patiño MD [address] [place] [address] PCP - General Family Medicine 12/03/23 Codie Hercules NP [address] [place] [address] Nurse Practitioner Medical Oncology 11/09/20 04/08/24 Karolyn Moody MD [address] [place] [address] General Surgery 11/14/20 Harry Reid MD [address] [place] [address] [email or web address] Radiation Oncology 11/14/20 Kristyn Rossi MD [address] [place] [address] Primary Oncologist Medical Oncology 10/11/20 Patrick Lomeli MD [address] [place] [address] [email or web address] Intensive Care 09/29/23 Neil Lazaro MD [address] [place] [address] [place] [address] Urology 10/12/24 documented as of this encounter Additional Source Comments The information contained in this document represents components of the legal health record. It is not the complete legal health record.[facility]
--- OUTSIDE RECORDS SUMMARY | 2024-12-03 16:31 | XMS_ITS | Clinical Summary ---
Author Organization [employer] Address 75 [facility] 7t [place] [address] Care Team Providers Care Replenishment Analyst Name Role Phone Unavailable Primary Care Provider Unavailabl e Immunizations Immunization Administration Dates Next Due Influenza High-dose Quadriva lent Preservative Free 01/18/2022,12/03/2019 Influenza Quadrivalent Adjuvanted 11/08/2022, Influenza, High Dose Seasona l, Preservative Free 12/09/2018,10/23/2017,10/28/2016,09/26,12/03/2014,12/17/2013 Influenza, IIV3, injectable 11/03/2010, 0 Influenza, Unspecified 11/25/2022,2007,02/07/2006,12/19 Influenza, seasonal, injecta ble, preservative free 10/29/2023,11/09/2012 Pfizer Covid-19 Vaccine 12+ 06/01/2024, 4 Pneumococcal Conjugate PCV 13 12/01/2015 Pneumococcal Conjugate PCV 20 07/30/2022 Pneumococcal Polysaccharide PPSV23 08/16/2011 SARS-CoV-2, Unspecified 12/19/2022,02/18/2022 Td (adult), 5 Lf tetanus tox oid, preservative free, adsorbed 05/27/2013 Td (adult), unspecified 04/26/2002 Tdap 12/03/2019 Zoster, Recombinant 03/22/2021,10/04/2020 Zoster, live 09/16/2011 Social History Tobacco Use Types Packs/Day Years Used Date Smoking Tobacco: Never Assessed Comments Unknown Sex and Gender Information Value Date Recorded Sex Assigned at Unknown 10/29/2023 2:55 PM EDT Legal Sex Female 2:53 PM EDT Gender Identity Other 10/29/2023 2:55 PM EDT Sexual Orientation Don't know 10/29/2023 2: 55 PM EDT Plan of Treatment Health Maintenance Due Date Last Done Comments Depression Screening 1945 Lipid Panel 1945 SDOH Screening 1946 Alcohol/Substance Use Screening 1958 Tobacco Screening 1958 Hepatitis C Screening 01/05/1964 RSV Patients and Patients Aged 60 years or older (1 - 1-dose 75+ series) 2021 Influenza Vaccine (#1) 2024 , 11/25/2022, 11/08/2022, Additional history exists DTaP/Tdap/Td Vaccines (2 - Td or Tdap) 12/02/2029 12/03/2019, 05/27/2013, 04/26/2002 Zoster Vaccines Completed 03/22/2021, 09/11, 09/16/2011 Pneumococcal Vaccine: 50+ Years Completed 07/30/2022, 12/01/2015, 08/16/2011 COVID-19 Vaccine Completed 06/01/2024, , 12/19/2022, Additional history exists HIB Vaccines Aged Out No longer eligi ble based on patient's age to complete this topic HPV Vaccines Aged Out No longer eligi ble based on patient's age to complete this topic Hepatitis A Vaccines Aged Out No long er eligible based on patient's age to complete this topic Hepatitis B Vaccines Aged Out No long er eligible based on patient's age to complete this topic IPV Vaccines Aged Out No longer eligi ble based on patient's age to complete this topic Meningococcal B Vaccine Aged Out No l onger eligible based on patient's age to complete this topic Meningococcal Vaccine Aged Out No heron mandie eligible based on patient's age to complete this topic RSV under 20 months Aged Out No longe r eligible based on patient's age to complete this topic Rotavirus Vaccines Aged Out No longer eligible based on patient's age to complete this topic Insurance [employer] PPO
--- OUTSIDE RECORDS SUMMARY | 2024-12-03 16:31 | XMS_ITS | Encounter Summary ---
Author Organization [facility] Address [facility] [address] [address] Phone Care Team Providers Care Aerial Gunner Name Role Phone Erwin Tran MD Primary Care Provider [phone] Kristyn Rossi MD Unavailable Codie Hercules NP Unavailable [phone] Karolyn Moody MD Unavailable [phone] Harry Reid MD Unavailable [phone] Kristyn Rossi MD Unavailable [phone] Skye Patiño MD Primary Care Provider + [phone] Patrick Lomeli MD Unavailable [phone] Skye Patiño MD Primary Care Provider + [phone] Neil Lazaro MD Unavailable Encounter Details Date Type Department Care Team (Late st Contact Info) Description 11/01/2020 Procedure Pass [place] Admitting Dept - Virtual Department [address] [place] [address] Social History Tobacco Use Types Packs/Day Years [...] st Contact Info) Description 04/09/2024 Procedure Pass [address] [address] 12/10/2024 1:45 PM EDT Appointment [address] [address] Kristyn Rossi MD [address] [place] [address] [email or web address] 01/25/2025 8:30 AM EST Office Visit [facility], Allergy and Critical Care Medicine [address] [place] [address] Patrick Lomeli MD [address] [place] [address] [email or web address] documented as of this encounter Visit Diagnoses Not on filedocumented in this encounter Care Teams Aerial Gunner Relationship Specialty Start Date End Date Erwin Tran MD PCP - General 11/25/16 08/27/22 Skye Patiño MD [address] [place] [address] PCP - General Family Medicine 08/28/22 12/02/23 Skye Patiño MD [address] [place] [address] PCP - General Family Medicine 12/03/23 Kristyn Rossi MD [address] [place] [address] Primary Oncologist Medical Oncology 10/11/20 08/08/21 Codie Hercules NP [address] [place] [address] Nurse Practitioner Medical Oncology 11/09/20 04/08/24 Karolyn Moody MD [address] [place] [address] General Surgery 11/14/20 Harry Reid MD [address] [place] [address] [email or web address] Radiation Oncology 11/14/20 Kristyn Rossi MD [address] [place] [address] Primary Oncologist Medical Oncology 10/11/20 Patrick Lomeli MD [address] [place] [address] dulce Intensive Care 09/29/23 Neil Lazaro MD [address] [place] [address] [place] [address] Urology 10/12/24 documented as of this encounter Additional Source Comments The information contained in this document represents components of the legal health record. It is not the complete legal health record.[facility]
--- OUTSIDE RECORDS SUMMARY | 2024-12-03 16:31 | XMS_ITS | Encounter Summary ---
Author Organization [facility] Address [address] [place] [address] Phone Care Team Providers Care Manager Spring Name Role Phone Erwin Tran MD Primary Care Provider [phone] Codie Hercules LEAN ENGINEER Unavailable [phone] Karolyn Moody MD Unavailable [phone] Harry Reid MD Unavailable [phone] Kristyn Rossi MD Unavailable [phone] Skye Patiño MD Primary Care Provider + [phone] Patrick Lomeli MD Unavailable [phone] Skye Patiño MD Primary Care Provider + [phone] Neil Lazaro MD Unavailable Encounter Details Date Type Department Care Team (Late st Contact Info) Description 12/31/2021 Procedure Pass [facility], Ct Scan - [address] [address] Social History Tobacco Use Types Packs/Day Years [...] st Contact Info) Description 04/09/2024 Procedure Pass [facility], [facility]- [address] [address] 12/10/2024 1:45 PM EDT Appointment [facility], [facility]- [address] [address] Kristyn Rossi MD [address] [place] [address] [email or web address] 01/25/2025 8:30 AM EST Office Visit [facility], Allergy and Critical Care Medicine [address] [place] [address] Patrick Lomeli MD [address] [place] [address] dulce documented as of this encounter Visit Diagnoses Not on filedocumented in this encounter Care Teams Manager Spring Relationship Specialty Start Date End Date Erwin Tran MD PCP - General 11/25/16 08/27/22 Skye Patiño MD [address] [place] [address] PCP - General Family Medicine 08/28/22 12/02/23 Skye Patiño MD [address] [place] [address] PCP - General Family Medicine 12/03/23 Codie Hercules NP [address] [place] [address] Nurse Practitioner Medical Oncology 11/09/20 04/08/24 Karolyn Moody MD [address] [address] [email or web address] General Surgery 11/14/20 Harry Reid MD [address] [place] [address] [email or web address] Radiation Oncology 11/14/20 Kristyn Rossi MD [address] [place] [address] [email or web address] Primary Oncologist Medical Oncology 10/11/20 Patrick Lomeli MD [address] [place] [address] [email or web address] Intensive Care 09/29/23 Neil Lazaro MD [address] [place] [address] [place] [address] Urology 10/12/24 documented as of this encounter Additional Source Comments The information contained in this document represents components of the legal health record. It is not the complete legal health record.[facility]
--- OUTSIDE RECORDS SUMMARY | 2024-12-03 16:31 | XMS_ITS | Encounter Summary ---
Author Organization [facility] Address [address] [address] Phone Care Team Providers Care Motor Driver Name Role Phone Erwin Tran MD Primary Care Provider [phone] Kristyn Rossi MD Unavailable [phone] Codie Hercules TELEVISION MECHANIC Unavailable [phone] Karolyn Moody MD Unavailable [phone] Harry Reid MD Unavailable [phone] Kristyn Rossi MD Unavailable [phone] Skye Patiño MD Primary Care Provider + [phone] Patrick Lomeli MD Unavailable [phone] Skye Patiño MD Primary Care Provider + [phone] Neil Lazaro MD Unavailable Reason for Referral * MRI/CAT Scan - Closed Specialty Diagnoses / Procedures Referred By Contac t Referred To Contact Radiology Diagnoses Episodic paroxysmal hemicrania, not intractable Procedures CT Head Erwin Tran MD Phone: tel: fax: mailto: Referral ID Status Reason Start Date Expiration Date Visits Re quested Visits Authorized [id number] Closed 06/18/2017 08/16/2017 1 1 Encounter Details Date Type Department Care Team (Late st Contact Info) Description 06/19/2017 Ancillary Orders Virtual Department [address] [place] [address] Erwin Tran MD [address] [place] [address] [email or web address] Episodic paroxysmal hemicrania, not intractable Social History Tobacco Use Types Packs/Day Years [...] (Late Contact Info) Description 04/09/2024 Procedure Pass [address] [address] 12/10/2024 1:45 PM EDT Appointment [address] [address] Kristyn Rossi MD [address] [place] [email or web address] 01/25/2025 8:30 AM EST Office Visit [facility] [address] [place] [address] Patrick Lomeli MD [address] [place] [address] [email or web address] documented as of this encounter Results * CT HEAD WITH CONTRAST (06/30/2017 8:09 AM EDT) Anatomical Region Laterality Modality Head Computed Tomogra phy 06/30/2017 7:56 AM EDT Impressions 06/30/2017 9:40 AM EDT No findings to account for the patient's symptoms. Stable small faint pontine enhancement which may represent an incidental vascular malformation. TOTAL CTDIvol: 81.3 mGy POS - CDHRADBOARD 07 Narrative 06/30/2017 9:40 AM EDT COMPARISON: MRI brain 08/18/2010. TECHNIQUE: Head CT with IV contrast from the skull base to vertex with multi- planar reformats. Manual dose reduction technique tailored for patient and site of imaging CT HEAD FINDINGS: There is no acute intracranial hemorrhage, infarct, or intracranial mass. No mass effect, midline shift or extra-axial fluid collections. Stable 2 mm faint area of enhancement in the posterior harish which may represent an incidental vascular malformation. There is is also faint linear enhancement in the anterior right basal ganglia due to a developmental venous anomaly. Solitario-white matter differentiation is preserved. No hydrocephalus. Basal cisterns are patent. Vasculature is within normal limits. Pituitary gland is not enlarged. No significant sinus disease. Mastoid air cells, middle ears and external canals are clear No acute orbital findings. No acute soft tissue or bony abnormality. No destructive bone lesions. Incidental small sebaceous cysts again noted at the vertex. Procedure Note Tyesha Franco MD - 06/30/2017 COMPARISON: MRI brain 08/18/2010. TECHNIQUE: Head CT with IV contrast from the skull base to vertex withmulti- planar reformats. Manual dose reduction technique tailored forpatient and site of imaging CT HEAD FINDINGS: There is no acute intracranial hemorrhage, infarct, or intracranial mass.No mass effect, midline shift or extra-axial fluid collections. Stable 2mm faint area of enhancement in the posterior harish which may represent anincidental vascular malformation. There is is also faint linearenhancement in the anterior right basal ganglia due to a developmentalvenous anomaly. Solitario-white matter differentiation is preserved. Nohydrocephalus. Basal cisterns are patent. Vasculature is within normallimits. Pituitary gland is not enlarged. No significant sinus disease.Mastoid air cells, middle ears and external canals are clear No acuteorbital findings. No acute soft tissue or bony abnormality. Nodestructive bone lesions. Incidental small sebaceous cysts again noted atthe vertex. IMPRESSION: No findings to account for the patient's symptoms. Stable small faintpontine enhancement which may represent an incidental vascularmalformation. TOTAL CTDIvol: 81.3 mGy POS - CDHRADBOARD [address] 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, not intractable documented in this encounter Care Teams Motor Driver Relationship Specialty Start Date End Date Erwin Tran MD [email or web address] PCP - General 11/25/16 08/27/22 Skye Patiño MD [address] [place] [address] [email or web address] PCP - General Family Medicine 08/28/22 12/02/23 Skye Patiño MD [address] [place] [address] [email or web address] PCP - General Family Medicine 12/03/23 Kristyn Rossi MD [address] [place] [address] [email or web address] Primary Oncologist Medical Oncology 10/11/20 08/08/21 Codie Hercules NP [address] [place] [address] [email or web address] Nurse Practitioner Medical Oncology 11/09/20 04/08/24 Karolyn Moody MD [address] [place] [address] [email or web address] General Surgery 11/14/20 Harry Reid MD [address] [place] [address] [email or web address] Radiation Oncology 11/14/20 Kristyn Rossi MD [address] [place] [address] Primary Oncologist Medical Oncology 10/11/20 Patrick Lomeli MD [address] [place] [address] [email or web address] Intensive Care 09/29/23 Neil Lazaro MD [address] [place] [address] [place] [address] Urology 10/12/24 documented as of this encounter Additional Source Comments The information contained in this document represents components of the legal health record. It is not the complete legal health record.[facility]
--- OUTSIDE RECORDS SUMMARY | 2024-12-03 16:31 | XMS_ITS | Encounter Summary ---
Author Organization [facility] Address [address] [employer] [address] [address] Phone Care Team Providers Care Bow Maker Production Name Role Phone Codie Hercules NP Unavailable [phone] Karolyn Moody MD Unavailable [phone] Harry Reid MD Unavailable [phone] Kristyn Rossi MD Unavailable [phone] Skye Patiño MD Primary Care Provider Patrick Lomeli MD Unavailable [phone] Skye Patiño MD Primary Care Provider + [phone] Neil Lazaro MD Unavailable Encounter Details Date Type Department Care Team (Late st Contact Info) Description 05/23/2023 Procedure Pass OR Admitting Dept - Virtual Department [address] [place] [address] Social History Tobacco Use Types Packs/Day Years [...] st Contact Info) Description 04/09/2024 Procedure Pass [address] [address] 12/10/2024 1:45 PM EDT Appointment [address] [address] Kristyn Rossi MD [address] [place] [address] [email or web address] 01/25/2025 8:30 AM EST Office Visit [facility] All[facility] [address] [place] [address] Patrick Lomeli MD [address] [place] [address] [email or web address] documented as of this encounter Visit Diagnoses Not on filedocumented in this encounter Care Teams Bow Maker Production Relationship Specialty Start Date End Date Skye Patiño MD [address] [place] [address] PCP - General Family Medicine 08/28/22 12/02/23 Skye Patiño MD [address] [place] [address] PCP - General Family Medicine 12/03/23 Codie Hercules NP [address] [place] [address] Nurse Practitioner Medical Oncology 11/09/20 04/08/24 Karolyn Moody MD [address] [place] [address] General Surgery 11/14/20 Harry Reid MD [address] [place] [address] [email or web address] Radiation Oncology 11/14/20 Kristyn Rossi MD [address] [place] [address] Primary Oncologist Medical Oncology 10/11/20 Patrick Lomeli MD [address] [place] [address] [email or web address] Intensive Care 09/29/23 Neil Lazaro MD [address] [place] [address] [place] [address] Urology 10/12/24 documented as of this encounter Additional Source Comments The information contained in this document represents components of the legal health record. It is not the complete legal health record.[facility]
--- OUTSIDE RECORDS SUMMARY | 2024-12-03 16:31 | XMS_ITS | Encounter Summary ---
Author Organization [facility] Address [address] [facility] [address] [place] [address] Phone Care Team Providers Care Agile Scrum Master Name Role Phone Karolyn Moody MD Unavailable [phone] Harry Reid MD Unavailable [phone] Kristyn Rossi MD Unavailable Patrick Lomeli MD Unavailable Skye Patiño MD Primary Care Provider [phone] Neil Lazaro MD Unavailable Encounter Details Date Type Department Care Team (Late st Contact Info) Description 11/10/2024 Orders Only [facility] at [address] [address] Acute renal failure, unspecified acute renal failure type (Primary Dx) Social History Tobacco Use Types Packs/Day Years [...] st Contact Info) Description 04/09/2024 Procedure Pass [address] [address] 12/10/2024 1:45 PM EDT Appointment [address] [address] Kristyn Rossi MD [address] [place] [address] 01/25/2025 8:30 AM EST Office Visit [facility] Critical [facility] [address] [place] [address] [place] [address] Patrick Lomeli MD [address] [place] [address] 2nd [place] [address] [email or web address] documented as of this encounter Results * (ABNORMAL) Comprehensive metabolic panel (11/16/2024 1:22 PM EDT) SODIUM 143 133 - 146 mmol/L [facility] POTASSIUM 4.5 3.3 - 5.1 mmol/L [facility] CHLORIDE 106 96 - 108 mmol/L [facility] CO2 27 21 - 35 mmol/L [facility] BUN 20(H) 6 - 19 mg/dL [facility] CREATININE 0.70 0.5 - 1.5 mg/dL [facility] GLUCOSE 104(H) 70 - 99 mg/dL [facility] ALBUMIN 4.2 3.9 - 4.8 g/dL [facility] TOTAL PROTEIN 7.3 6.5 - 8.0 g/dL [facility] CALCIUM 9.8 8.4 - 10.3 mg/dL [facility] ALKALINE PHOSPHATASE 107 39 - 117 U/L [facility] TOTAL BILIRUBIN 0.7 0.0 - 1.2 mg/dL [facility] AST 18 0 - 37 U/L [facility] ALT 13 0 - 40 U/L [facility] GLOBULIN 3.1 1 - 4.8 g/dL [facility] EGFR 88 >59 mL/min/1.7 3m2 [facility] Comment:Estimated glomerular filtration rate calculated using the CKD-EPI refit equation. ANION GAP 15 10 - 20 mmol/L [facility] Blood 11/16/2024 1:22 PM EDT 11/16/2024 1:25 PM EDT us Kristyn Rossi MD LAB BLOOD ORDERABLES Final Re sult [facility] [address] [place], [place] [id number] * (ABNORMAL) CBC and differential (11/16/2024 1:22 PM EDT) WBC 7.32 4.00 - 11.00 K/uL [facility] RBC 3.83(L) 4.00 - 5.20 M/uL [facility] HGB 12.3 12.0 - 16.0 g/dL [facility] HCT 37.9 36.0 - 46.0 % [facility] PLT 235 150 - 450 K/uL [facility] MCV 99.0 80.0 - 100.0 fL [facility] MCH 32.1(H) 27.0 - 31.0 pg [facility] MCHC 32.5 32.0 - 36.0 g/dL [facility] RDW 14.2 11.5 - 14.5 % [facility] MPV 10.4 8.4 - 12.0 fL [facility] NRBC 0.00 0.00 /100 WBCs [facility] ABSOLUTE NRBC 0.00 0.00 K/uL [facility] DIFF METHOD Auto [facility] NEUTS 70.5 48.0 - 76.0 % [facility] LYMPHS 20.6 18.0 - 41.0 % [facility] MONOS 6.3 4.0 - 11.0 % [facility] EOS 1.8 0.0 - 5.0 % [facility] BASOS 0.5 0.0 - 1.5 % [facility] Granulocytes, immature (%) 0.3 0.0 - 0.9 % [facility] ABSOLUTE NEUTS 5.16 1.92 - 7.60 K/uL [facility] ABSOLUTE LYMPHS 1.51 0.72 - 4.10 K/uL [facility] ABSOLUTE MONOS 0.46 0.16 - 1.10 K/uL [facility] ABSOLUTE EOS 0.13 0.00 - 0.50 K/uL [facility] ABSOLUTE BASOS 0.04 0.00 - 0.15 K/uL [facility] Granulocytes, immature 0.02 0.00 - 0.09 K/uL [facility] Blood 11/16/2024 1:22 PM EDT 11/16/2024 1:25 PM EDT us Kristyn Rossi MD LAB BLOOD ORDERABLES Final Re sult [facility] [address] [place] [address] documented in this encounter Visit Diagnoses Diagnosis Acute renal failure, unspecified acute renal failure type- Primary documented in this encounter Care Teams Agile Scrum Master Relationship Specialty Start Date End Date Skye Patiño MD [address] [place] [address] PCP - General Family Medicine 12/03/23 Karolyn Moody MD [address] [address] [email or web address] General Surgery 11/14/20 Harry Reid MD [address] [place] [address] [email or web address] Radiation Oncology 11/14/20 Kristyn Rossi MD [address] [place] [address] [email or web address] Primary Oncologist Medical Oncology 10/11/20 Patrick Lomeli MD [address] [place] [address] [email or web address] Intensive Care 09/29/23 Neil Lazaro MD [address] [place] [address] [place] [address] Urology 10/12/24 documented as of this encounter Additional Source Comments The information contained in this document represents components of the legal health record. It is not the complete legal health record.[facility]
--- OUTSIDE RECORDS SUMMARY | 2024-12-03 16:31 | XMS_ITS | Encounter Summary ---
Author Organization [facility] Address [address] [address] Phone Care Team Providers Care Business Solutions Architect Name Role Phone Karolyn Moody MD Unavailable Harry Reid MD Unavailable [phone] Kristyn Rossi MD Unavailable Patrick Lomeli MD Unavailable Skye Patiño MD Primary Care Provider [phone] Neil Lazaro MD Unavailable [phone] Reason for Visit * Reason Onset Date Comments 6 m w/treatment 12/02/2024 Encounter Details Date Type Department Care Team (Late st Contact Info) Description 12/02/2024 Telephone [facility] at [address] [address] Kristyn Rossi MD [address] [place] [email or web address] 6 m w/treatment Social History Tobacco Use Types Packs/Day Years [...] on file documented as of this encounter Progress Notes * Norma Díaz - 12/02/2024 11:00 AM EDT Lvm for pt to call and schedule 6 m f/u w/labs and Zometa for the end of May Requested a call back when able documented in this encounter Plan of Treatment Upcoming Encounters Date Type Department Care Team (Late st Contact Info) Description 04/09/2024 Procedure Pass [address] [address] 12/10/2024 1:45 PM EDT Appointment [address] [address] Kristyn Rossi MD [address] [place] [address] 01/25/2025 8:30 AM EST Office Visit [facility] All[facility] Critical [facility] Medicine [address] [place] [address] Patrick Lomeli MD [address] [address] [email or web address] documented as of this encounter Visit Diagnoses Not on filedocumented in this encounter Care Teams Business Solutions Architect Relationship Specialty Start Date End Date Skye Patiño MD [address] [place] [address] [email or web address] PCP - General Family Medicine 12/03/23 Karolyn Moody MD [address] [address] General Surgery 11/14/20 Harry Reid MD [address] [place] [address] [email or web address] Radiation Oncology 11/14/20 Kristyn Rossi MD 30 [place] [address] [email or web address] Primary Oncologist Medical Oncology 10/11/20 Patrick Lomeli MD [address] [place] [address] [email or web address] Intensive Care 09/29/23 Neil Lazaro MD [address] [place] [address] [place] [address] Urology 10/12/24 documented as of this encounter Additional Source Comments The information contained in this document represents components of the legal health record. It is not the complete legal health record.[facility]
--- OUTSIDE RECORDS SUMMARY | 2024-12-03 16:31 | XMS_ITS | Encounter Summary ---
Author Organization [facility] Address [address] [place] [address] Phone Care Team Providers Care Shank Boner Name Role Phone Erwin Tran MD Primary Care Provider [phone] Kristyn Rossi MD Unavailable Codie Hercules CUSTOMER SUPPORT COORDINATOR Unavailable [phone] Karolyn Moody MD Unavailable [phone] Harry Reid MD Unavailable Kristyn Rossi MD Unavailable Skye Patiño MD Primary Care Provider + [phone] Patrick Lomeli MD Unavailable [phone] Skye Patiño MD Primary Care Provider + [phone] Neil Lazaro MD Unavailable [phone] Encounter Details Date Type Department Care Team (Late st Contact Info) Description 09/27/2020 Ancillary Orders [facility],Outside Imaging [address] [place] [address] System, Provider Not In, PhD [address] [address] Social History Tobacco Use Types Packs/Day Years [...] st Contact Info) Description 04/09/2024 Procedure Pass [facility], [address] [address] 12/10/2024 1:45 PM EDT Appointment [facility], [address] [address] Kristyn Rossi MD [address] [place] [address] [email or web address] 01/25/2025 8:30 AM EST Office Visit [facility] [address] [place] [address] [address] [place], [place] [id number] Patrick Lomeli MD [address] [place] [id number] [email or web address] documented as of this encounter Results * US Breast Outside (No Interpretation) (09/26/2020 12:05 AM EDT) Narrative SYSTEMGENERATED, DOCUMENTATION - 09/27/2020 4:12 PM EDT This study is for PACS storage only and not for interpretation. us Provider Not In System PhD IMG OUTSIDE IMAGING W /OUT INTERPRETATION Final Result * Mammogram Outside (No Interpretation) (09/26/2020 12:00 AM EDT) Narrative SYSTEMGENERATED, DOCUMENTATION - 09/27/2020 4:05 PM EDT This study is for PACS storage only and not for interpretation. us Provider Not In System PhD IMG OUTSIDE IMAGING W /OUT INTERPRETATION Final Result * Mammogram Outside (No Interpretation) (10/29/2019 12:00 AM EDT) Narrative SYSTEMGENERATED, DOCUMENTATION - 09/27/2020 4:07 PM EDT This study is for PACS storage only and not for interpretation. us Provider Not In System PhD IMG OUTSIDE IMAGING W /OUT INTERPRETATION Final Result * Mammogram Outside (No Interpretation) (05/06/2017 12:00 AM EDT) Narrative SYSTEMGENERATED, DOCUMENTATION - 09/27/2020 4:08 PM EDT This study is for PACS storage only and not for interpretation. us Provider Not In System PhD IMG OUTSIDE IMAGING W /OUT INTERPRETATION Final Result * Mammogram Outside (No Interpretation) (07/26/2014 12:00 AM EDT) Narrative SYSTEMGENERATED, DOCUMENTATION - 09/27/2020 4:06 PM EDT This study is for PACS storage only and not for interpretation. us Provider Not In System PhD IMG OUTSIDE IMAGING W /OUT INTERPRETATION Final Result * Mammogram Outside (No Interpretation) (07/13/2012 12:00 AM EDT) Narrative SYSTEMGENERATED, DOCUMENTATION - 09/27/2020 4:06 PM EDT This study is for PACS storage only and not for interpretation. us Provider Not In System PhD IMG OUTSIDE IMAGING W /OUT INTERPRETATION Final Result documented in this encounter Visit Diagnoses Not on filedocumented in this encounter Care Teams Shank Boner Relationship Specialty Start Date End Date Erwin Tran MD PCP - General 11/25/16 08/27/22 Skye Patiño MD [address] [place] [address] PCP - General Family Medicine 08/28/22 12/02/23 Skye Patiño MD [address] [place] [address] PCP - General Family Medicine 12/03/23 Kristyn Rossi MD 30 [place] [address] [email or web address] Primary Oncologist Medical Oncology 10/11/20 08/08/21 Codie Hercules CUSTOMER SUPPORT COORDINATOR [address] [place] [address] [email or web address] Nurse Practitioner Medical Oncology 11/09/20 04/08/24 Karolyn Moody MD [address] [address] General Surgery 11/14/20 Harry Reid MD 30 [place] [address] [email or web address] Radiation Oncology 11/14/20 Kristyn Rossi MD 30 [place] [address] Primary Oncologist Medical Oncology 10/11/20 Patrick Lomeli MD [address] [place] [address] [email or web address] Intensive Care 09/29/23 Neil Lazaro MD [address] [place] [address] [place] [address] Urology 10/12/24 documented as of this encounter Additional Source Comments The information contained in this document represents components of the legal health record. It is not the complete legal health record.[facility]
--- OUTSIDE RECORDS SUMMARY | 2024-12-03 16:32 | XMS_ITS | Patient Health Record ---
Author Organization [facility] Address [address] [place] [address] Care Team Providers Care Material Combiner Name Role Phone Jose Mclain Primary Care Provider [phone] Reason For Referral No Information Medications Medication SIG (Take, Route, Frequency, Duration) Notes Start Date End Date Status clonazePAM 0.5 MG 0 Oral 1/2 tab hs prn s;leep; Duration: 30 03/05/2017 Active PRESERVISION AREDS TABLET [id number] WAFG-IB-NIQC 0 1 bid; Duration: 30 *please review [...] End Date [employer]BS MEDICARE PPO [address] [place], [place] [id number] Oswaldo Flores Self - patient is the insured MEDICARE B [address] [facility] [place] [id number] Oswaldo Flores Self - patient is the insured
--- OUTSIDE RECORDS SUMMARY | 2024-12-03 16:32 | XMS_ITS ---
Author Organization [facility] Address 399 [facility] [facility] [address] [place] [address] Phone Care Team Providers Care Photoengraving Apprentice Name Role Phone Karolyn Moody MD Unavailable Harry Reid MD Unavailable [phone] Kristyn Rossi MD Unavailable Patrick Lomeli MD Unavailable [phone] Skye Patiño MD Primary Care Provider [phone] Neil Lazaro MD Unavailable Active Problems Patient Care Coordination No te Formatting of this note migh t be different from the original. Height 161.5cm no shoes taken by OC 02/25/2023 Problem Noted Date Diagnosed Date Other insomnia 11/12/2023 Mycobacterium avium intracellulare colonization 06/21/2022 RUBIO (dyspnea on exertion) 06/21/2022 Status post right breast lumpectomy 02/14/2021 Invasive ductal carcinoma of breast, female, rig ht 10/17/2020 Current Treatment and Therapy Plans ZOLEDRONIC ACID (ZOMETA)* Plan Start Date:10/03/2023 Plan Provider:Kristyn Rossi MD Linked Problems Invasive ductal carcinoma of breast, female, right Treatment Medications No medications scheduled. Past Treatment and Therapy Plans No past plan information found.
--- OUTSIDE RECORDS SUMMARY | 2024-12-03 16:32 | XMS_ITS | Encounter Summary ---
Author Organization [facility] Address [facility] [address] [address] Phone Care Team Providers Care Computer Programming Supervisor Name Role Phone Erwin Tran MD Primary Care Provider [phone] Kristyn Rossi MD Unavailable [phone] Codie Hercules NP Unavailable [phone] Karolyn Moody MD Unavailable [phone] Harry Reid MD Unavailable Kristyn Rossi MD Unavailable Skye Patiño MD Primary Care Provider + [phone] Patrick Lomeli MD Unavailable [phone] Skye Patiño MD Primary Care Provider + [phone] Neil Lazaro MD Unavailable Encounter Details Date Type Department Care Team (Late st Contact Info) Description 02/14/2021 Procedure Pass [address] [address] Social History Tobacco Use Types Packs/Day Years [...] st Contact Info) Description 04/09/2024 Procedure Pass [address] [address] 12/10/2024 1:45 PM EDT Appointment [address] [address] Kristyn Rossi MD [address] [place] [address] [email or web address] 01/25/2025 8:30 AM EST Office Visit [facility] Pulmonary, Allergy and Critical Care Medicine [address] [place] [address] Patrick Lomeli MD [address] [place] [address] [email or web address] documented as of this encounter Visit Diagnoses Not on filedocumented in this encounter Care Teams Computer Programming Supervisor Relationship Specialty Start Date End Date Erwin Tran MD PCP - General 11/25/16 08/27/22 Skye Patiño MD [address] [place] [address] PCP - General Family Medicine 08/28/22 12/02/23 Skye Patiño MD [address] [place] [address] PCP - General Family Medicine 12/03/23 Kristyn Rossi MD [address] [place] [address] Primary Oncologist Medical Oncology 10/11/20 08/08/21 Codie Hercules NP [address] [place] [address] Nurse Practitioner Medical Oncology 11/09/20 04/08/24 Karolyn Moody MD [address] [place] [address] General Surgery 11/14/20 Harry Reid MD [address] [place] [address] [email or web address] Radiation Oncology 11/14/20 Kristyn Rossi MD [address] [place] [address] Primary Oncologist Medical Oncology 10/11/20 Patrick Lomeli MD [address] [place] [address] [email or web address] Intensive Care 09/29/23 Neil Lazaro MD [address] [place] [address] [place] [address] Urology 10/12/24 documented as of this encounter Additional Source Comments The information contained in this document represents components of the legal health record. It is not the complete legal health record.[facility]
--- OUTSIDE RECORDS SUMMARY | 2024-12-03 16:32 | XMS_ITS | Encounter Summary ---
Author Organization [facility] Address [address] [address] Phone Care Team Providers Care Provisioning Specialist Name Role Phone Erwin Tran MD Primary Care Provider [phone] Codie Hercules MANAGER MEDICARE MARKETING Unavailable [phone] Karolyn Moody MD Unavailable [phone] Harry Reid MD Unavailable [phone] Kristyn Rossi MD Unavailable [phone] Skye Patiño MD Primary Care Provider + [phone] Patrick Lomeli MD Unavailable [phone] Skye Patiño MD Primary Care Provider + [phone] Neil Lazaro MD Unavailable Encounter Details Date Type Department Care Team (Late st Contact Info) Description 08/27/2022 Procedure Pass [facility], [address] [address] Social History Tobacco Use Types Packs/Day Years Used Date Smoking Tobacco: Former Smokeless Tobacco: Never Comments:smoked for two year s as a teen Alcohol Use Standard Drinks/Week Comments Yes 0 (1 standard drink = 0.6 oz pur e alcohol) five nights a week light Education Answer [...] st Contact Info) Description 04/09/2024 Procedure Pass [address] [address] 12/10/2024 1:45 PM EDT Appointment [address] [address] Kristyn Rossi MD [address] [place] [address] [email or web address] 01/25/2025 8:30 AM EST Office Visit [facility] Pulmonary, Allergy and Critical Care Medicine [address] [place] [address] Patrick Lomeli MD [address] [place] [address] [email or web address] documented as of this encounter Visit Diagnoses Not on filedocumented in this encounter Care Teams Provisioning Specialist Relationship Specialty Start Date End Date Erwin Tran MD PCP - General 11/25/16 08/27/22 Skye Patiño MD [address] [place] [address] PCP - General Family Medicine 08/28/22 12/02/23 Skye Patiño MD [address] [place] [address] [email or web address] PCP - General Family Medicine 12/03/23 Codie Hercules NP [address] [place] [address] [email or web address] Nurse Practitioner Medical Oncology 11/09/20 04/08/24 Karolyn Moody MD [address] [place] [address] [email or web address] General Surgery 11/14/20 Harry Reid MD [address] [place] [address] [email or web address] Radiation Oncology 11/14/20 Kristyn Rossi MD [address] [place] [address] [email or web address] Primary Oncologist Medical Oncology 10/11/20 Patrick Lomeli MD [address] [place] [address] [email or web address] Intensive Care 09/29/23 Neil Lazaro MD [address] [place] [address] [place] [address] Urology 10/12/24 documented as of this encounter Additional Source Comments The information contained in this document represents components of the legal health record. It is not the complete legal health record.[facility]
--- OUTSIDE RECORDS SUMMARY | 2024-12-03 16:32 | XMS_ITS | Encounter Summary ---
Author Organization [facility] Address [address] [place] [address] Phone Care Team Providers Care Direct Marketing Executive Name Role Phone Erwin Tran MD Primary Care Provider [phone] Kristyn Rossi MD Unavailable Codie Hercules GLASS WORKER Unavailable [phone] Karolyn Moody MD Unavailable [phone] Harry Reid MD Unavailable [phone] Kristyn Rossi MD Unavailable Skye Patiño MD Primary Care Provider Patrick Lomeli MD Unavailable [phone] Skye Patiño MD Primary Care Provider + [phone] Neil Lazaro MD Unavailable Reason for Referral * MRI/CAT Scan - Closed Specialty Diagnoses / Procedures Referred By Vince t Referred To Contact Radiology Diagnoses Bronchiectasis without complication Procedures CT Chest Kana Ramos MD Phone: tel: fax: mailto:[email or web address] Referral ID Status Reason Start Date Expiration Date Visits Re quested Visits Authorized [id number] Closed 08/21/2018 10/19/2018 1 1 Encounter Details Date Type Department Care Team (Latest Contact Info) Description 08/18/2018 Transcribe Orders Virtual Department [address] [place] [address] Kana Ramos MD [address] [place] [address], [address] [place] [address] [email or web address] Bronchiectasis without complication (Primary Dx) Social History Tobacco Use Types [...] st Contact Info) Description 04/09/2024 Procedure Pass [address] [address] 12/10/2024 1:45 PM EDT Appointment [address] [address] Kristyn Rossi MD [address] [place] [address] 01/25/2025 8:30 AM EST Office Visit [facility] Pulmonary, Allergy and Critical Care Medicine [address] [place] [address] [place] [address] Patrick Lomeli MD [address] [place] [address] 2nd [place] [address] [email or web address] documented as of this encounter Results * CT CHEST WITH CONTRAST (09/02/2018 3:06 PM EDT) Anatomical Region Laterality Modality Chest Computed Tomogra phy 09/02/2018 4:41 PM EDT Impressions 09/02/2018 5:33 PM EDT Chronic multifocal bilateral bronchiectasis, bronchial wall thickening, mucous plugging, peribronchial opacification and tree-in-bud opacities. Findings have increased compared with the prior chest CT 11/21/2016 with few new areas of peribronchial consolidation and mucus plugging. Findings compatible with the clinical history of ELPIDIO. TOTAL CTDIvol: 10.8 mGy POS - [id number] Edited by: Arabella Early on 09/02/2018 4:57 PM Narrative 09/02/2018 5:33 PM EDT EXAM: CT CHEST WITH CONTRAST HISTORY: History of ELPIDIO, now with cough and fatigue on exertion. TECHNIQUE: CT imaging of the chest with IV contrast. 100 mL Omnipaque [address] imaging with coronal and sagittal images reconstructed. Radiation dose control: Exam performed with automated exposure control or iterative reconstruction to minimize radiation exposure. COMPARISON: 11/21/2016, 08/01/2016. FINDINGS: Lungs: There are scattered multifocal areas of bronchial wall thickening, with areas of intraluminal debris/mucus plugging. There are multifocal areas of peribronchial consolidations in addition to tree-in-bud opacities and groundglass consolidations.. Slight increase in peribronchial opacification in the lingula, LEFT lower lobe, RIGHT middle lobe and RIGHT lower lobe when compared with the prior CT. There is a new branching nodular consolidation in the RIGHT lower lobe where there is debris filling the branching distal bronchiole, with the area of consolidation measuring up to 4 cm. Scattered areas of bronchiectasis. Pleura: No pleural effusions. No pneumothorax. Lymph nodes: No adenopathy in the chest. Heart: Normal size of the heart. No pericardial effusion. Vascular: Normal diameter of the thoracic aorta. Normal size and enhancement of the central pulmonary arteries. Lower neck/chest wall/thoracic inlet: No significant abnormalities. Imaged thyroid gland is normal. Upper abdomen: Stable mild diffuse thickening of the adrenal glands. Procedure Note Sandra Naik MD - 09/02/2018 EXAM: CT CHEST WITH CONTRAST HISTORY: History of ELPIDIO, now with cough and fatigue on exertion. TECHNIQUE: CT imaging of the chest with IV contrast. 100 mL [id number] contrast IV. Helical axial CT imaging with coronal and sagittalimages reconstructed. Radiation dose control: Exam performed with automated exposure control oriterative reconstruction to minimize radiation exposure. COMPARISON: 11/21/2016, 08/01/2016. FINDINGS: Lungs: There are scattered multifocal areas of bronchial wall thickening,with areas of intraluminal debris/mucus plugging. There are multifocalareas of peribronchial consolidations in addition to tree-in-bud opacitiesand groundglass consolidations.. Slight increase in peribronchialopacification in the lingula, LEFT lower lobe, RIGHT middle lobe and RIGHTlower lobe when compared with the prior CT. There is a new branching nodular consolidation in the RIGHT lower lobewhere there is debris filling the branching distal bronchiole, with thearea of consolidation measuring up to 4 cm. Scattered areas ofbronchiectasis. Pleura: No pleural effusions. No pneumothorax. Lymph nodes: No adenopathy in the chest. Heart: Normal size of the heart. No pericardial effusion. Vascular: Normal diameter of the thoracic aorta. Normal size andenhancement of the central pulmonary arteries. Lower neck/chest wall/thoracic inlet: No significant abnormalities. Imagedthyroid gland is normal. Upper abdomen: Stable mild diffuse thickening of the adrenal glands. IMPRESSION: Chronic multifocal bilateral bronchiectasis, bronchial wall thickening,mucous plugging, peribronchial opacification and tree-in-bud opacities.Findings have increased compared with the prior chest CT 11/21/2016 withfew new areas of peribronchial consolidation and mucus plugging. Findingscompatible with the clinical history of ELPIDIO. TOTAL CTDIvol: 10.8 mGy POS - [id number] Edited by: Arabella Early on 09/02/2018 4:57 PM Kana Ramos MD [facility] CT CHEST Final Result documented in this encounter Visit Diagnoses Diagnosis Bronchiectasis without complication- Primary Bronchiectasis without complication Epigastric abdominal pain Abdominal pain, epigastric Lower abdominal pain Abdominal pain, other specified site documented in this encounter Care Teams Direct Marketing Executive Relationship Specialty Start Date End Date Erwin Tran MD PCP - General 11/25/16 08/27/22 Skye Patiño MD [address] [place], [place] [address] [email or web address] PCP - General Family Medicine 08/28/22 12/02/23 Skye Patiño MD [address] [place] [address] [email or web address] PCP - General Family Medicine 12/03/23 Kristyn Rossi MD [address] [place] [address] [email or web address] Primary Oncologist Medical Oncology 10/11/20 08/08/21 Codie Hercules NP [address] [place] [address] [email or web address] Nurse Practitioner Medical Oncology 11/09/20 04/08/24 Karolyn Moody MD [address] [place] [address] [email or web address] General Surgery 11/14/20 Harry Reid MD [address] [place] [address] [email or web address] Radiation Oncology 11/14/20 Kristyn Rossi MD [address] [place] [address] [email or web address] Primary Oncologist Medical Oncology 10/11/20 Patrick Lomeli MD [address] [place] [address] [email or web address] Intensive Care 09/29/23 Neil Lazaro MD [address] [place] [address] [place] [address] Urology 10/12/24 documented as of this encounter Additional Source Comments The information contained in this document represents components of the legal health record. It is not the complete legal health record.[facility]
--- OUTSIDE RECORDS SUMMARY | 2024-12-03 16:32 | XMS_ITS | Encounter Summary ---
Author Organization [facility] Address [address] [place] [address] Phone Care Team Providers Care Human Resource Management Instructor Name Role Phone Erwin Tran MD Primary Care Provider [phone] Kristyn Rossi MD Unavailable Codie Hercules INTERNATIONAL REPRESENTATIVE Unavailable [phone] Karolyn Moody MD Unavailable [phone] Harry Reid MD Unavailable Kristyn Rossi MD Unavailable [phone] Skye Patiño MD Primary Care Provider + [phone] Patrick Lomeli MD Unavailable [phone] Skye Patiño MD Primary Care Provider + [phone] Neil Lazaro MD Unavailable Encounter Details Date Type Department Care Team (Late st Contact Info) Description 06/30/2017 Procedure Pass [facility], Pr Scan - [address] [address] Social History Tobacco Use Types Packs/Day Years [...] st Contact Info) Description 04/09/2024 Procedure Pass [facility], Mammography- [address] [address] 12/10/2024 1:45 PM EDT Appointment [facility], [facility]- [address] [address] Kristyn Rossi MD [address] [place] [address] 01/25/2025 8:30 AM EST Office Visit [facility] Pulmonary, Allergy and Critical Care Medicine [address] [place] [address] Patrick Lomeli MD [address] [place] [address] [email or web address] documented as of this encounter Visit Diagnoses Not on filedocumented in this encounter Care Teams Human Resource Management Instructor Relationship Specialty Start Date End Date Erwin Tran MD PCP - General 11/25/16 08/27/22 Skye Patiño MD [address] [place] [address] PCP - General Family Medicine 08/28/22 12/02/23 Skye Patiño MD [address] [place] [address] PCP - General Family Medicine 12/03/23 Kristyn Rossi MD [address] [place] [address] Primary Oncologist Medical Oncology 10/11/20 08/08/21 Codie Hercules, INTERNATIONAL REPRESENTATIVE [address] [place] [address] [email or web address] Nurse Practitioner Medical Oncology 11/09/20 04/08/24 Karolyn Moody MD [address] [address] [email or web address] General Surgery 11/14/20 Harry Reid MD [address] [place] [address] [email or web address] Radiation Oncology 11/14/20 Kristyn Rossi MD [address] [place] [address] Primary Oncologist Medical Oncology 10/11/20 Patrick Lomeli MD [address] [place] [address] [email or web address] Intensive Care 09/29/23 Neil Lazaro MD [address] [place] [address] [place] [address] Urology 10/12/24 documented as of this encounter Additional Source Comments The information contained in this document represents components of the legal health record. It is not the complete legal health record.[facility]
--- OUTSIDE RECORDS SUMMARY | 2024-12-03 16:32 | XMS_ITS | Encounter Summary ---
Author Organization [facility] Address [address] [address] Phone Care Team Providers Care Net Lead Architect Name Role Phone Erwin Tran MD Primary Care Provider [phone] Kristyn Rossi MD Unavailable Codie Hercules DIRECTOR ADVERTISING Unavailable [phone] Karolyn Moody MD Unavailable [phone] Harry Reid MD Unavailable [phone] Kristyn Rossi MD Unavailable Skye Patiño MD Primary Care Provider + [phone] Patrick Lomeli MD Unavailable [phone] Skye Patiño MD Primary Care Provider + [phone] Neil Lazaro MD Unavailable Reason for Referral * MRI/CAT Scan - Closed Specialty Diagnoses / Procedures Referred By Contac t Referred To Contact Radiology Diagnoses Episodic paroxysmal hemicrania, not intractable Procedures CT Orbits Erwin Tran MD Phone: tel: fax: mailto: Referral ID Status Reason Start Date Expiration Date Visits Re quested Visits Authorized [id number] Closed 06/30/2017 08/28/2017 1 1 Encounter Details Date Type Department Care Team (Late st Contact Info) Description 06/30/2017 Ancillary Orders Virtual Department [address] [place] [address] Erwin Tran MD [address] [place] [address] [email or web address] Episodic paroxysmal hemicrania, not intractable Social History [...] (Late Contact Info) Description 04/09/2024 Procedure Pass [address] [address] 12/10/2024 1:45 PM EDT Appointment [address] [address] Kristyn Rossi MD [address] [place] [address] [email or web address] 01/25/2025 8:30 AM EST Office Visit [facility] Pulmonary, Allergy and Critical Care Medicine [address] [place] [address] Patrick Lomeli MD [address] [place] [address] [email or web address] documented as of this encounter Results * CT FACE (ORBITS) WITH CONTRAST (06/30/2017 8:18 AM EDT) Anatomical Region Laterality Modality Face Computed Tomogra phy 06/30/2017 7:57 AM EDT Impressions 06/30/2017 9:42 AM EDT No findings to account for the patient's symptoms. No significant sinus disease. TOTAL CTDIvol: 81.3 mGy POS - [id number] Narrative 06/30/2017 9:42 AM EDT COMPARISON: MRI brain 08/18/2010. CT sinus 03/28/2016. TECHNIQUE: CT of the orbits with IV contrast. Sagittal and coronal reformats generated. Automated exposure control utilized. CT ORBITS FINDINGS: Orbits: Normal. Soft tissue: Normal. Bones/sinuses: New small right maxillary sinus retention cyst. Decrease in left maxillary sinus mucosal thickening. No air-fluid levels. Stable left nasal septal deviation and small nasal septal polyps. Ostiomeatal unit complexes are patent. Imaged mastoid air cells and middle ears and external canals are clear. No destructive bony changes. Procedure Note Tyesha Franco MD - 06/30/2017 COMPARISON: MRI brain 08/18/2010. CT sinus 03/28/2016. TECHNIQUE: CT of the orbits with IV contrast. Sagittal and coronalreformats generated. Automated exposure control utilized. CT ORBITS FINDINGS: Orbits: Normal. Soft tissue: Normal. Bones/sinuses: New small right maxillary sinus retention cyst. Decreasein left maxillary sinus mucosal thickening. No air-fluid levels. Stableleft nasal septal deviation and small nasal septal polyps. Ostiomeatalunit complexes are patent. Imaged mastoid air cells and middle ears andexternal canals are clear. No destructive bony changes. IMPRESSION: No findings to account for the patient's symptoms. No significant sinusdisease. 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, not intractable documented in this encounter Care Teams Net Lead Architect Relationship Specialty Start Date End Date Erwin Tran MD PCP - General 11/25/16 08/27/22 Skye Patiño MD [address] [place] [address] [email or web address] PCP - General Family Medicine 08/28/22 12/02/23 Skye Patiño MD [address] [place] [address] [email or web address] PCP - General Family Medicine 12/03/23 Kristyn Rossi MD [address] [place] [address] [email or web address] Primary Oncologist Medical Oncology 10/11/20 08/08/21 Codie Hercules NP [address], [place] [address] [email or web address] Nurse Practitioner Medical Oncology 11/09/20 04/08/24 Karolyn Moody MD [address] [place] [address] [email or web address] General Surgery 11/14/20 Harry Reid MD [address] [place] [address] [email or web address] Radiation Oncology 11/14/20 Kristyn Rossi MD [address] [place] [address] Primary Oncologist Medical Oncology 10/11/20 Patrick Lomeli MD [address] [place] [address] [email or web address] Intensive Care 09/29/23 Neil Lazaro MD [address] [place] [address] [place] [address] Urology 10/12/24 documented as of this encounter Additional Source Comments The information contained in this document represents components of the legal health record. It is not the complete legal health record.[facility]
--- OUTSIDE RECORDS SUMMARY | 2024-12-03 16:32 | XMS_ITS | Encounter Summary ---
Author Organization [facility] Address [address] [place] [address] Phone Care Team Providers Care Forex Trader Name Role Phone Erwin Tran MD Primary Care Provider [phone] Kristyn Rossi MD Unavailable Codie Hercules HEAD WAITER Unavailable [phone] Karolyn Moody MD Unavailable [phone] Harry Reid MD Unavailable [phone] Kristyn Rossi MD Unavailable Skye Patiño MD Primary Care Provider + [phone] Patrick Lomeli MD Unavailable [phone] Skye Patiño MD Primary Care Provider + [phone] Neil Lazaro MD Unavailable Encounter Details Date Type Department Care Team (Late st Contact Info) Description 06/19/2017 Procedure Pass [facility], [place] Scan - [address] [address] Social History Tobacco Use Types Packs/Day Years [...] st Contact Info) Description 04/09/2024 Procedure Pass [facility], Mammography- [address] [address] 12/10/2024 1:45 PM EDT Appointment [facility], [facility]- [address] [address] Kristyn Rossi MD [address] [place] [address] 01/25/2025 8:30 AM EST Office Visit [facility] Pulmonary, Allergy and Critical Care Medicine [address] [place] [address] Patrick Lomeli MD [address] [place] [address] dulce documented as of this encounter Visit Diagnoses Not on filedocumented in this encounter Care Teams Forex Trader Relationship Specialty Start Date End Date Erwin Tran MD PCP - General 11/25/16 08/27/22 Skye Patiño MD [address] [place] [address] PCP - General Family Medicine 08/28/22 12/02/23 Skye Patiño MD [address] [place] [address] PCP - General Family Medicine 12/03/23 Kristyn Rossi MD [address] [place] [address] Primary Oncologist Medical Oncology 10/11/20 08/08/21 Codie Hercules, HEAD WAITER [address] [place] [address] [email or web address] Nurse Practitioner Medical Oncology 11/09/20 04/08/24 Karolyn Moody MD [address] [address] [email or web address] General Surgery 11/14/20 Harry Reid MD [address] [place] [address] [email or web address] Radiation Oncology 11/14/20 Kristyn Rossi MD [address] [place] [address] Primary Oncologist Medical Oncology 10/11/20 aPtrick Lomeli MD [address] [place] [address] [email or web address] Intensive Care 09/29/23 Neil Lazaro MD [address] [place] [address] [place] [address] Urology 10/12/24 documented as of this encounter Additional Source Comments The information contained in this document represents components of the legal health record. It is not the complete legal health record.[facility]
--- OUTSIDE RECORDS SUMMARY | 2024-12-03 16:32 | XMS_ITS | Data Portability ---
Author Organization [place] [facility], Allergy Address 100 [facility] 100 [place] [address] Care Team Providers Care Rotary Engraver Name Role Phone DES AVANI Primary Care Provider Assessment Encounter Date Assessment Date Assessment LastModified by Organization Details LastModified Time 02/13/2024 02/13/2024 79 yo F presents for Sudden hearing loss. She was placed on a course of prednisone and felt that her hearing had essentially gone back to normal within 24 hours. Audiometric testing today shows that thresholds are only marginally decreased since previous testing in 2016. She is a candidate for amplification. I recommended completing the course of prednisone unless the side effects become intolerable. She is also concern for chronic left facial pain which has been worked up extensively with sinus imaging, evaluation with clinical writer, allergy testing showing multiple sensitivities. On exam, there is exudate at the left anterior septum which per her report is chronic. I recommended a water-based lubricant to this area. [email or web address] Not available 02/25/2024 09:26:15 Plan of Treatment Reminders Order Date Submit Date Provider Last Modified By Organization Details Last Modified Time Details Appointments None recorded. Lab None recorded. Referral neurologist referral - ADDRESS: [address] [place] [address] [address]LO[address] [place] [address] PLEASE CALL THEIR OFFICE IF YOU CAN'T MAKE IT TO THIS APPOINTMENT 2024 025 j luis Comer MD, [address] [place] [address] , [facility] [address], [place], [address], 5 14:04:53 Procedures None recorded. Surgeries None recorded. Imaging None recorded. Medication Orders nortriptyli ne 10 mg capsule 2024 025 [facility] #[id number], [address] [place], [address], 14:31:41 Patient TargetsNo targets recorded. Patient InstructionsNo instructions recorded. Reason for Referral Neurologist Referral for Abel blake ADDRESS: [address] [place] [address] [address] [place] [id number] CALL THEIR OFFICE IF YOU CAN'T MAKE IT TO THIS APPOINTMENT Referring Physician: Essence Eden, Otolaryngology, Encounter Date: 06/22/2024 Results Created Date Observation Date Name Description Value Unit Range Abnormal Flag Note LastModifiedBy Organization Detail LastModifiedTime 02/12/19 audio gram No observ ation record ed. BARCODE Not Available 2024 14:50:16 03/01/19 25 02/29/2024 MRI, brain + inter nal audit ory canal , w/wo contr ast No observ ation record ed. [address], [address], 03/23/2024 16:52:44 Result Notes None recorded. Problems Name Problem SNOMED Code Status Onset Date Resolution Date Notes Provider Name and Address Organization Details Recorded Time Sensorine ural hearing loss of bilateral ears 726150026 Active 2015 Sensorine ural hearing loss, bilateral ; Note: Date Diagnosed : 12/12/2015 4:24 PM (H90.3) Not Available [facility] 4 03:15:22 Migraine without aura, not refractor y 883629084 Active 2015 Migraine without aura, not intractab le, without status migrainos us; Note: Date Diagnosed : 12/12/2015 4:56 PM (G43.009) Not Available [facility] 4 03:15:22 Tinnitus of left ear 80608932592 06 Active 2015 Tinnitus, left ear; Note: Changed from H93.A2 to H93.12 ( 6 8:40 AM) , Date Diagnosed : 12/12/2015 4:24 PM (H93.A2) Not Available [facility] 4 03:15:22 Abdominal migraine 54961729 Active 2015 Abdominal migraine, not intractab le; Note: Date Diagnosed : 12/12/2015 4:56 PM (G43.D0) Not Available [facility] 4 03:15:23 Headache 82995364 Active 2016 Facial pain NOS; Note: Date Diagnosed : 03/05/2016 9:40 AM (R51) Not Available [facility] 4 03:15:22 Chronic rhinitis 30796378 Active 2016 Chronic rhinitis; Note: Date Diagnosed : 03/05/2016 9:41 AM (J31.0) Not Available [facility] 4 03:15:23 Ulcerativ e rhinitis 42356970 Active 2024 ESSENCE EDEN MD [address] [place] [address],[place] [address], [place], [address] , [facility] 5 09:22:29 Migraine 91271081 Active 2024 ESSENCE EDEN MD [address] [place] [address],[place] [address], [place], [address] , [facility] 5 14:10:17 Problem Notes None recorded. Procedures Surgical History Date Name Laterality Status Provider Name and Address Organization Details Recorded Time 02/13/2024 Comp Audio with Tymps - 46115 & 37141 completed IVORY TAYLOR MA, CCC-A [address] [place] [address],[place] [address], [place], [address], [facility] 02/13/2024 11:24:44 Imaging Results None recorded. Procedure Notes None recorded. Medical Equipment None Reported. Allergies Allergen ID Allergen Name Allergen Category Reaction Reaction Severity Criticality Documentation Date Start Date Code Code System Note Provider Name and Address Organization Details Recorded Time 996706 metoclopr amide hydrochlo ride medicatio n other Not available Not available 06/24/2023 58078 6 RxNorm React ion: unkno wn, unspe cifie d;; Not Available [facility] 4 01:27:05 Medications Name Sig Start Date Stop Date Status Note LastModified by Organization Details LastModified Time prednison e 10 mg tablet PLEASE SEE ATTACHED FOR DETAILED DIRECTIO NS 03/25 completed Not Available Not Available Not Available tizanidin e 2 mg tablet TAKE 1 TABLET BY MOUTH TWICE A DAY NEEDED FOR 7 DAYS 03/25 completed Not Available Not Available Not Available medroxypr ogesteron e 2.5 mg tablet 02/12 completed Medicati on ID: [id number] D uration Value: 30 Brand Name: medroxyp rogester one Send Method: E-Prescr ibed Sub s Allowed: subs OK Medic ationGen ericName : medroxyp rogester one Not Available Not Available Not Available clonazepa m 0.5 mg tablet TAKE 1 TABLET BY MOUTH TWICE A DAY NEEDED active Not Available Not Available No t Available fluoroura cil 5 % topical cream PLEASE SEE ATTACHED FOR DETAILED DIRECTIO NS 03/25 completed Not Available Not Available Not Available acetamino phen 300 mg-codein e 30 mg tablet TAKE 1 TO 2 TABLETS BY MOUTH EVERY 6 HOURS NEEDED 02/12 completed Not Available Not Available Not Available valacyclo vir 500 mg tablet TAKE 1 TABLET BY MOUTH DAILY FOR PREVENTI ON active Not Available Not Available No t Available temazepam 15 mg capsule TAKE 1 CAPSULE BY MOUTH EVERY DAY AT BEDTIME NEEDED active Not Available Not Available No t Available exemestan e 25 mg tablet TAKE 1 TABLET (25 MG TOTAL) BY MOUTH DAILY. active Not Available Not Available No t Available amitripty line 10 mg tablet 02/12 completed Medicati on ID: [id number] D uration Value: 30 Brand Name: amitript yline Se nd Method: E-Prescr ibed Sub s Allowed: subs OK Speci al Instruct ion: TAKE 1 TABLET BY MOUTH TWICE A DAY Medi cationGe nericNam e: amitript yline Not Available Not Available Not Available nortripty line 10 mg capsule TAKE 1 CAPSULE BY MOUTH EVERY DAY active Not Available Not Available No t Available omeprazol e 20 mg capsule,d elayed release 03/25 completed Medicati on ID: [id number] D uration Value: 90 Brand Name: omeprazo le Send Method: E-Prescr ibed Sub s Allowed: subs OK Medic ationGen ericName : omeprazo le Not Available Not Available Not Available codeine 10 mg-guaife nesin 100 mg/5 mL oral liquid TAKE 10 ML EVERY DAY BY ORAL ROUTE AT BEDTIME FOR 7 DAYS. 02/12 completed Not Available Not Available Not Available zolpidem 5 mg tablet TAKE 1/2 TO 2 TABS AT BEDTIME NEEDED 02/12 completed Not Available Not Available Not Available levofloxa catalina 500 mg tablet TAKE 1 TABLET (500 MG TOTAL) BY MOUTH DAILY. 03/25 completed Not Available Not Available Not Available Dayvigo 5 mg tablet TAKE 1 TABLET BY MOUTH NIGHTLY AT BEDTIME NEEDED. 03/25 completed Not Available Not Available Not Available Vitals Date Recorded Body height Body mass index (BMI) Body weight Provider Name and Address Organization Details Last Updated DateTime 03/25/2024 163.83 cm 17.4 kg/m2 30246.01 g Sophie Hogan MA [facility] 03/25/2024 13:50:22 Date Recorded Body height Body mass index (BMI) Body weight Provider Name and Address Organization Details Last Updated DateTime 06/22/2024 163.83 cm 17.6 kg/m2 66012.61 g Sophie Hogan MA [facility] 06/22/2024 13:53:45 Social History None recorded. Functional Status None recorded. Mental Status None recorded. Family History Nothing Reported. Medical History Condition Response Cancer Y Migraines Y Gynecological HistoryNo gynecological history recorded. Obstetrics History GPAL:G 0 P 0 0 0 0 Past Encounters Encounter ID Performer Location Encounter Start Date Encounter Closed Date Diagnosis/Indication Diagnosis SNOMED-CT Code Diagnosis ICD10 Code Diagnosis IMO Codes Diagnosis Note [id number] ESSENCE EDEN MD [facility] [address] [address] 02/13/2024 10:47:13 02/13/2024 11:58:45 Sensorineural hearing loss of bilateral ears 181879287 H90.3 Audiologic al evaluation results: Right ear: Normal hearing thru 1000Hz sloping to a mild to moderate SNHL with excellent word recognitio n. Left ear: Normal hearing thru 500Hz sloping to a mild to moderate SNHL with excellent word recognitio n. 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 I would not expect this finding to contribute to her left-sided headaches which are more likely related to migraines versus trigeminal neuralgia. She has previously been on gabapentin . I recommende d a trial of nortriptyl ine. [id number] ESSENCE EDEN MD [facility] [place] on [address] [place] [address] 06/22/2024 13:48:17 06/22/2024 14:13:28 Migraine 06246646 G43.009 06677 She reports no change in hearing since her last visit. She is interested in amplificat ion, so I did give her a copy of her audiometri c testing and a medical clearance for hearing aids.She remains very bothered by her chronic left-sided facial pain, which did not respond to the gabapentin years ago and which did not respond to recent nortriptyl ine trial. I reassured her that her sinuses looked clear on her most recent imaging study. I did recommend at this point follow-up with neurology. Health Concerns Section Related Observation LastModified by Organization Detai ls LastModified Time None Recorded Concern Status LastModified by Organization Details LastModified Time None Recorded Advance Directives Directive None Recorded Payers Insurance Date Sequence Insurance Name Policy Number Policy Key Covered Member ID Key Member ID Guarantor Name 06/22/2024 1 [facility]: MEDICARE PPO BLUE (MEDICARE REPLACEMENT PPO) [id number] Oswaldo Flores [id number] Oswaldo Flores Notes Date Note Type Note Provider Name and Address Organization Details Recorded Time 5 text/html 79 yo F presents with sudden SNHL, started prednisone, having some depressionhearing started coming back after 24 hours. Getting some frontal headachesMid , deviated septum, surgery not successful, has had a sore in the nose and septum, constant pain to the left ear sometimes deeper ?arteritis, another thought it may be migraines (had some lower abdominal pain) Had sinus films which looked fine Saw a clinical writer in [place], did a nasal swab , staph coag negative 2020, was given bactrim through atomizer, seemed to help nothing now in the nose, has tried netipot, flonase, nothing seems to help takes tylenol or ibuprofen, gabapentin did not agree (was put on for abdominal migraines) did have allergy testing, multiple sensitivities, not recommended to do shots Does have bronchiectasis, has pseudomonas and ELPIDIO in the lungs, was recently on cipro, sees Dr. Lomeli, no inhalers currently, had been prescribed [facility]ENCE EDEN MD [facility] [place],[address], [address], [place] - [facility] [place] 02/25/2024 09:26:27 5 text/html 79 yo F present for follow up hearing came back almost immediatelyprednisone helped with the facial pain, headaches are backMRI showed SSCD, no third window symptoms Previously on gabapentin ESSENCE EDEN MD 100 [facility],[place] [address], [place], [address], [facility] - [facility] [place] 03/26/2024 22:06:21 5 text/html ROS as noted in the HPI Hearing has been fineNo improvement with nortriptyline Saw neurologist years ago for chronic left facial pain which has been worked up extensively with sinus imaging, evaluation with clinical writer, allergy testing showing multiple sensitivities. MRI reviewed at her last visit unremarkable, with finding of apparent SSCD, clear sinuses on review of imaging, but without symptoms of third window phenomenon. ESSENCE EDEN MD [address] [facility] [place] [address], [place], [address], [facility] - [facility] [place] 06/22/2024 14:49:03 OBGyn Episode No OBEpisode recorded.
--- OUTSIDE RECORDS SUMMARY | 2024-12-03 16:32 | XMS_ITS | Encounter Summary ---
Author Organization [facility] Address [address] [place] [address] Phone Care Team Providers Care Polishing Wheel Repairer Name Role Phone Erwin Tarn MD Primary Care Provider [phone] Kristyn Rossi MD Unavailable [phone] Codie Hercules NP Unavailable [phone] Karolyn Moody MD Unavailable [phone] Harry Reid MD Unavailable [phone] Kristyn Rossi MD Unavailable Skye Patiño MD Primary Care Provider Patrick Lomeli MD Unavailable [phone] Skye Patiño MD Primary Care Provider + [phone] Neil Lazaro MD Unavailable Reason for Referral * MRI/CAT Scan - Closed Specialty Diagnoses / Procedures Referred By Contbarrett t Referred To Contact Radiology Diagnoses Epigastric abdominal pain Lower abdominal pain Procedures CT Abdomen/Pelvis Wilmer Hathaway MD Phone: tel: fax: [email or web address] Referral ID Status Reason Start Date Expiration Date Visits Re quested Visits Authorized [id number] Closed 08/26/2018 08/26/2019 1 1 Encounter Details Date Type Department Care Team (Latest Contact Info) Description 08/26/2018 Transcribe Orders Virtual Department [address] [place] [address] Wilmer Hathaway MD [address] [place] [address] Epigastric abdominal pain (Primary Dx); Lower abdominal pain Social History Tobacco Use Types Packs/Day Years [...] st Contact Info) Description 04/09/2024 Procedure Pass [address] [address] 12/10/2024 1:45 PM EDT Appointment [address] [address] Kristyn Rossi MD [address] [place] [address] 01/25/2025 8:30 AM EST Office Visit [facility] Pulmonary, Allergy and Critical Care Medicine [address] [place] [address] [place] [address] Patrick Lomeli MD [address] [place] [address] [address] [place] [address] dulce documented as of this encounter Results * CT ABDOMEN/PELVIS WITH CONTRAST (09/02/2018 3:06 PM EDT) Anatomical Region Laterality Modality Abdomen, Pelvis Computed Tomogra phy 09/02/2018 3:22 PM EDT Impressions 09/02/2018 3:28 PM EDT Chronic right anterior basilar bronchiectasis and mild interstitial disease New right basilar posterior lateral confluent density. If the patient has active inflammatory disease at the lung base it may be referred to the abdomen. TOTAL CTDIvol: 10.8 mGy POS - [id number] Narrative 09/02/2018 3:28 PM EDT HISTORY: The gastric pain COMPARISON: CT chest dated 11/21/2016. TECHNIQUE: After the administration of oral and intravenous contrast, multidetector CT is obtained from dome of the liver through the inferior pubic rami. Sagittal and coronal reformats generated. Automated exposure control utilized. FINDINGS: Lung bases: Chronic bronchiectasis and interstitial disease is seen in the anterior aspect of the right lower lobe. There is now a confluent area of airspace density in the posterior lateral segment of the right lower lobe new since prior examination. The left base is normal. Liver and spleen: No findings of concern. Biliary tree and pancreas: No findings of concern. Adrenals and : No findings of concern. Bowel: No findings of concern. Nodes: No adenopathy detected. Vascular: No findings of concern. Soft tissues: No findings of concern. Bones: Facet arthropathy is seen in the lower lumbar spine. Procedure Note Jet Acevedo MD - 09/02/2018 HISTORY: The gastric pain COMPARISON: CT chest dated 11/21/2016. TECHNIQUE: After the administration of oral and intravenous contrast,multidetector CT is obtained from dome of the liver through the inferiorpubic rami. Sagittal and coronal reformats generated. Automated exposurecontrol utilized. FINDINGS: Lung bases: Chronic bronchiectasis and interstitial disease is seen in theanterior aspect of the right lower lobe. There is now a confluent area ofairspace density in the posterior lateral segment of the right lower lobenew since prior examination. The left base is normal. Liver and spleen: No findings of concern. Biliary tree and pancreas: No findings of concern. Adrenals and : No findings of concern. Bowel: No findings of concern. Nodes: No adenopathy detected. Vascular: No findings of concern. Soft tissues: No findings of concern. Bones: Facet arthropathy is seen in the lower lumbar spine. IMPRESSION: Chronic right anterior basilar bronchiectasis and mild interstitialdisease New right basilar posterior lateral confluent density. If the patient hasactive inflammatory disease at the lung base it may be referred to theabdomen. TOTAL CTDIvol: 10.8 mGy POS - [id number] us Wilmer Hathaway MD IMG CT ABD/PELVIS Final Resu lt documented in this encounter Visit Diagnoses Diagnosis Epigastric abdominal pain- Primary Abdominal pain, epigastric Lower abdominal pain Abdominal pain, other specified site Bronchiectasis without complication Epigastric abdominal pain Abdominal pain, epigastric Lower abdominal pain Abdominal pain, other specified site documented in this encounter Care Teams Polishing Wheel Repairer Relationship Specialty Start Date End Date Erwin Tran MD [email or web address] PCP - General 11/25/16 08/27/22 Skye Patiño MD [address] [place] [address] [email or web address] PCP - General Family Medicine 08/28/22 12/02/23 Skye Patiño MD [address] [place] [address] [email or web address] PCP - General Family Medicine 12/03/23 Kristyn Rossi MD [address] [place] [address] [email or web address] Primary Oncologist Medical Oncology 10/11/20 08/08/21 Codie Hercules NP [address] [place] [address] [email or web address] Nurse Practitioner Medical Oncology 11/09/20 04/08/24 Karolyn Moody MD [address] [place] [address] General Surgery 11/14/20 Harry Reid MD [address] [place] [address] [email or web address] Radiation Oncology 11/14/20 Kristyn Rossi MD [address] [place] [address] Primary Oncologist Medical Oncology 10/11/20 Patrick Lomeli MD [address] [place] [address] dulce Intensive Care 09/29/23 Neil Lazaro MD [address] [place] [address] [place] [address] Urology 10/12/24 documented as of this encounter Additional Source Comments The information contained in this document represents components of the legal health record. It is not the complete legal health record.[facility]
--- OUTSIDE RECORDS SUMMARY | 2024-12-03 16:32 | XMS_ITS | Encounter Summary ---
Author Organization [facility] Address [address] [address] Phone Care Team Providers Care Scroll Shear Operator Name Role Phone Codie Hercules NP Unavailable [phone] Karolyn Moody MD Unavailable [phone] Harry Reid MD Unavailable [phone] Kristyn Rossi MD Unavailable [phone] Skye Patiño MD Primary Care Provider Patrick Lomeli MD Unavailable [phone] Skye Patiño MD Primary Care Provider Neil Lazaro MD Unavailable Encounter Details Date Type Department Care Team (Late st Contact Info) Description 02/25/2023 Procedure Pass [facility], [address] [address] Social History Tobacco Use Types Packs/Day Years [...] Contact Info) Description 04/09/2024 Procedure Pass [address] [address] 12/10/2024 1:45 PM EDT Appointment [address] [address] Kristyn Rossi MD [address] [place] [email or web address] 01/25/2025 8:30 AM EST Office Visit [facility] Pulmonary, Allergy and Critical Care Medicine [address] [place] [address] Patrick Lomeli MD [address] [place] [address] [email or web address] documented as of this encounter Visit Diagnoses Not on filedocumented in this encounter Care Teams Scroll Shear Operator Relationship Specialty Start Date End Date Skye Patiño MD [address] [place] [address] PCP - General Family Medicine 08/28/22 12/02/23 Skye Patiño MD [address] [place] [address] PCP - General Family Medicine 12/03/23 Codie Hercules NP [address] [place] [address] Nurse Practitioner Medical Oncology 11/09/20 04/08/24 Karolyn Moody MD [address] [place] [address] General Surgery 11/14/20 Harry Reid MD [address] [place] [address] [email or web address] Radiation Oncology 11/14/20 Kristyn Rossi MD [address] [place] [address] [email or web address] Primary Oncologist Medical Oncology 10/11/20 Patrick Lomeli MD [address] [place] [address] [email or web address] Intensive Care 09/29/23 Neil Lazaro MD [address] [place] [address] [place] [address] Urology 10/12/24 documented as of this encounter Additional Source Comments The information contained in this document represents components of the legal health record. It is not the complete legal health record.[facility]
--- OUTSIDE RECORDS SUMMARY | 2024-12-03 16:32 | XMS_ITS | Encounter Summary ---
Author Organization [facility] Address [address] [place] [address] Phone Care Team Providers Care Licensed Sales Assistant Name Role Phone Erwin Tran MD Primary Care Provider [phone] Kristyn Rossi MD Unavailable Codie Hercules EMAIL CAMPAIGN MANAGER Unavailable [phone] Karolyn Moody MD Unavailable [phone] Harry Reid MD Unavailable [phone] Kristyn Rossi MD Unavailable [phone] Skye Patiño MD Primary Care Provider + [phone] Patrick Lomeli MD Unavailable [phone] Skye Patiño MD Primary Care Provider + [phone] Neil Lazaro MD Unavailable Encounter Details Date Type Department Care Team (Latest Contact Info) Description 06/27/2017 Transcribe Orders [facility] Laboratory [address] [place] [address] Erwin Tran MD [address] [place], [place] [phone] Stomach ache (Primary Dx) Social History Tobacco Use Types [...] st Contact Info) Description 04/09/2024 Procedure Pass [address] [address] 12/10/2024 1:45 PM EDT Appointment [address] [address] Kristyn Rossi MD [address] [place] [address] 01/25/2025 8:30 AM EST Office Visit [facility] Pulmonary, Allergy and Critical Care Medicine [address] [place] [address] [place] [address] Patrick Lomeli MD [address] [place] [address] 2nd [place] [address] [email or web address] documented as of this encounter Results * (ABNORMAL) Basic metabolic panel (06/27/2017 2:00 PM EDT) SODIUM 147(H) 133 - 146 mmol/L [facility] CHLORIDE 105 96 - 108 mmol/L [facility] POTASSIUM 4.0 3.3 - 5.1 mmol/L [facility] CO2 28 21 - 35 mmol/L [facility] BUN 15 6 - 19 mg/dL [facility] CREATININE 0.70 0.5 - 1.5 mg/dL [facility] GLUCOSE 72 70 - 99 mg/dL [facility] CALCIUM 9.2 8.4 - 10.3 mg/dL [facility] EGFR 87 >59 mL/min/1.7 3m2 [facility] Comment:If patient is black, multiply result by 1.159. The eGFR calculation has changed from the MDRD equation to the CKD-EPI equation as of April 15, 2017. ANION GAP 18 10 - 20 mmol/L [facility] Blood 06/27/2017 2:00 PM EDT 06/27/2017 2:02 PM EDT us Erwin Tran MD LAB BLOOD ORDERABLES Final Resul t [facility] [address] [place] [address] documented in this encounter Visit Diagnoses Diagnosis Stomach ache- Primary Dyspepsia and other specified disorders of function of stomach documented in this encounter Care Teams Licensed Sales Assistant Relationship Specialty Start Date End Date Erwin Tran MD [email or web address] PCP - General 11/25/16 08/27/22 Skye Patiño MD [address] [place] [address] PCP - General Family Medicine 08/28/22 12/02/23 Skye Patiño MD [address] [place] [address] [email or web address] PCP - General Family Medicine 12/03/23 Kristyn Rossi MD [address] [place] [address] [email or web address] Primary Oncologist Medical Oncology 10/11/20 08/08/21 Codie Hercules, EMAIL CAMPAIGN MANAGER [address] [place] [address] Nurse Practitioner Medical Oncology 11/09/20 04/08/24 Karolyn Moody MD [address] [place] [address], [address] [place] [address] General Surgery 11/14/20 Harry Reid MD [address] [place] [address] [email or web address] Radiation Oncology 11/14/20 Kristyn Rossi MD [address] [place] [address] [email or web address] Primary Oncologist Medical Oncology 10/11/20 Patrick Lomeli MD [address] [place] [address] [email or web address] Intensive Care 09/29/23 Neil Lazaro MD [address] [place] [address] [place] [address] Urology 10/12/24 documented as of this encounter Additional Source Comments The information contained in this document represents components of the legal health record. It is not the complete legal health record.[facility]
--- OUTSIDE RECORDS SUMMARY | 2024-12-03 16:32 | XMS_ITS | Encounter Summary ---
Author Organization [facility] Address [address] [place] [address] Phone Care Team Providers Care Soa Engineer Name Role Phone Erwin Tran MD Primary Care Provider [phone] Kristyn Rossi MD Unavailable Codie Hercules NP Unavailable [phone] Karolyn Moody MD Unavailable [phone] Harry Reid MD Unavailable [phone] Kristyn Rossi MD Unavailable [phone] Skye Patiño MD Primary Care Provider Patrick Lomeli MD Unavailable [phone] Skye Patiño MD Primary Care Provider [phone] Neil Lazaro MD Unavailable Reason for Referral * Outpatient Procedure - Closed Specialty Diagnoses / Procedures Referred By Contbarrett t Referred To Contact Radiology Diagnoses Breast mass, right Procedures [facility] Biopsy of Breast (Right) Erwin Tran MD Phone: tel: fax: mailto: Referral ID Status Reason Start Date Expiration Date Visits Re quested Visits Authorized [id number] Closed 09/26/2020 09/26/2021 1 1 Encounter Details Date Type Department Care Team (Late st Contact Info) Description 09/26/2020 Ancillary Orders Virtual Department [address] [place] [address] Erwin Tran MD [address] [place] [address] [email or web address] Breast mass, right Social History Tobacco Use [...] (Late Contact Info) Description 04/09/2024 Procedure Pass [address] [address] 12/10/2024 1:45 PM EDT Appointment [address] [address] Kristyn Rossi MD [address] [place] [address] 01/25/2025 8:30 AM EST Office Visit [facility] Pulmonary, Allergy and Critical Care Medicine 10 [place] [address] Patrick Lomeli MD [address] [place] [address] 2nd [place] [address] [email or web address] documented as of this encounter Results * [facility] Biopsy of Breast (Right) (10/05/2020 9:16 AM EDT) Anatomical Region Laterality Modality Breast Right, Breast Bilateral Right U ltrasound 10/05/2020 10:0 7 AM EDT Addenda Addendum by Tristen Abel MD on 10/06/2020 5:24 PM EDT ADDENDUM: 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 Surgical and oncologic evaluation recommended. Impressions 10/05/2020 10:11 AM EDT Seemingly successful, initially uncomplicated biopsy of suspicious right breast mass. Narrative 10/05/2020 10:11 AM EDT Before commencing the procedure, prior imaging is reviewed. Side of concern is confirmed with the patient. Before commencing the procedure, the risks and benefits including the specific risks of hemorrhage, misdiagnosis and infection are reviewed with the patient. She gave written and verbal consent to proceed. From the lateral approach, the area of concern was localized sonographically. Breast was marked. Skin was then prepped in usual fashion. Skin and deeper tissues were anesthetized with 6 cc 1% lidocaine. Small skin lucero was then made. 11-gauge introducer was placed at the periphery of the lesion and a total of 4 12-gauge biopsies were then obtained with a spring-loaded device. After the biopsies, a Ghislaine marker was placed at the site and needles withdrawn. A dressing was then applied. Discharge instructions were reviewed with the patient by myself and the technologist. Written instructions are also given. Patient tolerated the procedure well with no immediate complication. Concordance addendum will be generated when pathologic analysis is complete. Follow-up is to be performed by Dr. Tran. Mammogram subsequently obtained and reported separately demonstrated concordance between the mammographic and sonographic findings and no evidence of significant hematoma. Estimated blood loss: None Erwin Tran MD IMG BI IRP GUIDED BREAST PROC Ed ited Result - Final documented in this encounter Visit Diagnoses Diagnosis Breast mass, right Lump or mass in breast Breast mass, right Lump or mass in breast documented in this encounter Care Teams Soa Engineer Relationship Specialty Start Date End Date Erwin Tran MD PCP - General 11/25/16 08/27/22 Skye Patiño MD [address] [place] [address] [email or web address] PCP - General Family Medicine 08/28/22 12/02/23 Skye Patiño MD [address] [place] [address] [email or web address] PCP - General Family Medicine 12/03/23 Kristyn Rossi MD [address] [place] [address] [email or web address] Primary Oncologist Medical Oncology 10/11/20 08/08/21 Codie Hercules NP [address] [address] [email or web address] Nurse Practitioner Medical Oncology 11/09/20 04/08/24 Karolyn Moody MD [address] [place] [address] [email or web address] General Surgery 11/14/20 Harry Reid MD [address] [place] [address] [email or web address] Radiation Oncology 11/14/20 Kristyn Rossi MD [address] [place] [address] [email or web address] Primary Oncologist Medical Oncology 10/11/20 Patrick Lomeli MD [address] [place] [address] [email or web address] Intensive Care 09/29/23 Neil Lazaro MD [address] [place] [address] [place] [address] Urology 10/12/24 documented as of this encounter Additional Source Comments The information contained in this document represents components of the legal health record. It is not the complete legal health record.[facility]
--- OUTSIDE RECORDS SUMMARY | 2024-12-03 16:32 | XMS_ITS | Encounter Summary ---
Author Organization [facility] Address [address] [address] Phone Care Team Providers Care Printed Circuit Boards Stripper Etcher Name Role Phone Codie Hercules NP Unavailable [phone] Karolyn Moody MD Unavailable [phone] Harry Reid MD Unavailable [phone] Kristyn Rossi MD Unavailable [phone] Patrick Lomeli MD Unavailable [phone] Skye Patiño MD Primary Care Provider + [phone] Neil Lazaro MD Unavailable [phone] Reason for Referral * MRI/CAT Scan - Closed Specialty Diagnoses / Procedures Referred By Contac t Referred To Contact Radiology Diagnoses Sensorineural hearing loss (SNHL), unspecified laterality Procedures MRI Brain CHG MRI BRAIN COMBO CHG MRI BRAIN CHG MRI BRAIN CONTRAST She Castanon NP [address] [place] [address] Phone: tel: fax: Referral ID Status Reason Start Date Expiration Date Visits Re quested Visits Authorized [id number] Closed 02/10/2024 04/09/2024 1 1 Encounter Details Date Type Department Care Team (Latest Contact Info) Description 02/12/2024 Transcribe Orders [facility] Department [address] [place] [address] She Castanon NP [address] [place] [address] Sensorineural hearing loss (SNHL), unspecified laterality (Primary Dx) Social History Tobacco Use Types [...] Contact Info) Description 04/09/2024 Procedure Pass [address] [address] 12/10/2024 1:45 PM EDT Appointment [address] [address] Kristyn Rossi MD [address] [place] [address] 01/25/2025 8:30 AM EST Office Visit [facility] Pulmonary, Allergy and Critical Care Medicine 10 [facility] [address] [address] Patrick Lomeli MD [address] [place] [address] 2nd [place] [address] [email or web address] documented as of this encounter Results * MRI BRAIN (INTERNAL AUDITORY CANAL) WITH AND WITHOUT CONTRAST (02/29/2024 11:09 AM EST) Anatomical Region Laterality Modality Head Magnetic Resonan ce 03/01/2024 8:55 AM EST Impressions 03/01/2024 8:57 AM EST Apparent bilateral superior semicircular canal dehiscence. 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 Narrative 03/01/2024 8:57 AM EST MRI BRAIN (INTERNAL AUDITORY CANAL) WITH AND WITHOUT CONTRAST Referring clinician's provided indication for this examination in [facility]: Outside Radiology Order; pt w/sudden sensorineural heading loss and l sided GARAY TECHNIQUE: Multi-sequence, multi-planar MRI of the brain including high resolution images of the temporal bones was performed before and after intravenous contrast. COMPARISON: CT HEAD WITH CONTRAST FINDINGS: Internal Auditory Canals, Cerebellopontine Angles, and Intracranial 7th and 8th Nerve Complexes: Normal. No cerebellopontine angle or internal auditory canal mass. Inner Ear Structures: There is apparent bilateral dehiscence of the superior semicircular canals. Brain Parenchyma: Normal. No evidence of acute infarct, mass lesion, or hemorrhage. Ventricular System and Extra-Axial Spaces: Normal. No evidence of midline shift or hydrocephalus. Miscellaneous: None. Procedure Note Tom Mendoza MD - 03/01/2024 MRI BRAIN (INTERNAL AUDITORY CANAL) WITH AND WITHOUT CONTRAST Referring clinician's provided indication for this examination in [facility]:Outside Radiology Order; pt w/sudden sensorineural heading loss and lsided GARAY TECHNIQUE: Multi-sequence, multi-planar MRI of the brain including highresolution images of the temporal bones was performed before and afterintravenous contrast. COMPARISON: CT HEAD WITH CONTRAST FINDINGS: Internal Auditory Canals, Cerebellopontine Angles, and Intracranial 7thand 8th Nerve Complexes: Normal. No cerebellopontine angle or internalauditory canal mass. Inner Ear Structures: There is apparent bilateral dehiscence of thesuperior semicircular canals. Brain Parenchyma: Normal. No evidence of acute infarct, mass lesion, orhemorrhage. Ventricular System and Extra-Axial Spaces: Normal. No evidence of midlineshift or hydrocephalus. Miscellaneous: None. IMPRESSION: Apparent bilateral superior semicircular canal dehiscence. Correlate withsymptoms of third window phenomenon. She Castanon NP IMG MR HEAD/NECK Final Resul t documented in this encounter Visit Diagnoses Diagnosis Sensorineural hearing loss (SNHL), unspecified laterality- Primary Sensorineural hearing loss (SNHL), unspecified laterality documented in this encounter Care Teams Printed Circuit Boards Stripper Etcher Relationship Specialty Start Date End Date Skye Patiño MD [address] [place] [address] [email or web address] PCP - General Family Medicine 12/03/23 Codie Hercules NP [address] [place] [address] [email or web address] Nurse Practitioner Medical Oncology 11/09/20 04/08/24 Karolyn Moody MD [address] [place] [address], [address] [place] [address] [email or web address] General Surgery 11/14/20 Harry Reid MD [address] [place] [address] [email or web address] Radiation Oncology 11/14/20 Kristyn Rossi MD [address] [place] [address] [email or web address] Primary Oncologist Medical Oncology 10/11/20 Patrick Lomeli MD [address] [place] [address] [email or web address] Intensive Care 09/29/23 Neil Lazaro MD [address] [place] [address] [place] [address] Urology 10/12/24 documented as of this encounter Additional Source Comments The information contained in this document represents components of the legal health record. It is not the complete legal health record.[facility]
--- OUTSIDE RECORDS SUMMARY | 2024-12-03 16:32 | XMS_ITS | Encounter Summary ---
Author Organization [facility] Address [address] [place] [address] Phone Care Team Providers Care Mail Carrier Technician Name Role Phone Erwin Tran MD Primary Care Provider [phone] Kristyn Rossi MD Unavailable Codie Hercules ELECTROSTATIC POWDER COATING TECHNICIAN Unavailable [phone] Karolyn Moody MD Unavailable [phone] Harry Reid MD Unavailable [phone] Kristyn Rossi MD Unavailable Skye Patiño MD Primary Care Provider + [phone] Patrick Lomeli MD Unavailable [phone] Skye Patiño MD Primary Care Provider + [phone] Neil Lazaro MD Unavailable Encounter Details Date Type Department Care Team (Late st Contact Info) Description 10/28/2019 Procedure Pass [facility], Wy Scan [address] [address] Social History Tobacco Use Types Packs/Day Years [...] st Contact Info) Description 04/09/2024 Procedure Pass [facility], Mammography- [address] [address] 12/10/2024 1:45 PM EDT Appointment [facility], [facility]- [address] [address] Kristyn Rossi MD [address] [place] [address] 01/25/2025 8:30 AM EST Office Visit [facility] Pulmonary, Allergy and Critical Care Medicine [address] [place] [address] Patrick Lomeli MD [address] [place] [address] [email or web address] documented as of this encounter Visit Diagnoses Not on filedocumented in this encounter Care Teams Mail Carrier Technician Relationship Specialty Start Date End Date Erwin Tran MD PCP - General 11/25/16 08/27/22 Skye Patiño MD [address] [place] [address] PCP - General Family Medicine 08/28/22 12/02/23 Skye Patiño MD [address] [place] [address] PCP - General Family Medicine 12/03/23 Kristyn Rossi MD [address] [place] [address] Primary Oncologist Medical Oncology 10/11/20 08/08/21 Codie Hercules, ELECTROSTATIC POWDER COATING TECHNICIAN [address] [place] [address] [email or web address] Nurse Practitioner Medical Oncology 11/09/20 04/08/24 Karolyn Moody MD [address] [address] [email or web address] General Surgery 11/14/20 Harry Reid MD [address] [place] [address] [email or web address] Radiation Oncology 11/14/20 Kristyn Rossi MD [address] [place] [address] Primary Oncologist Medical Oncology 10/11/20 Patrick Lomeli MD [address] [place] [address] [email or web address] Intensive Care 09/29/23 Neil Lazaro MD [address] [place] [address] [place] [address] Urology 10/12/24 documented as of this encounter Additional Source Comments The information contained in this document represents components of the legal health record. It is not the complete legal health record.[facility]
--- OUTSIDE RECORDS SUMMARY | 2024-12-03 16:32 | XMS_ITS | Encounter Summary ---
Author Organization [facility] Address [address] [address] Phone Care Team Providers Care Poultry Boner Name Role Phone Erwin Tran MD Primary Care Provider [phone] Kristyn Rossi MD Unavailable Codie Hercules NEWS WIRE PHOTO OPERATOR Unavailable [phone] Karolyn Moody MD Unavailable [phone] Harry Reid MD Unavailable [phone] Kristyn Rossi MD Unavailable Skye Patiño MD Primary Care Provider + [phone] Patrick Lomeli MD Unavailable [phone] Skye Patiño MD Primary Care Provider + [phone] Neil Lazaro MD Unavailable [phone] Reason for Referral * Consultation (Elective) - Closed Specialty Diagnoses / Procedures Referred By Contac t Referred To Contact Pulmonary Disease Diagnoses Bronchiectasis without complication Erwin Tran MD Phone: tel: fax: mailto:[email or web address] [address] [address] Phone: tel: Referral ID Status Reason Start Date Expiration Date Visits Re quested Visits Authorized [id number] Closed 06/14/2020 06/14/2021 1 1 Encounter Details Date Type Department Care Team (Latest Contact Info) Description 06/14/2020 Transcribe Orders [facility] [address] [place] [address] 3rd Floor, [address] [place] [address] Kana Ramos MD [address] [place] [address], [address] [place] [address] [email or web address] Bronchiectasis without complication (Primary Dx) Social History [...] st Contact Info) Description 04/09/2024 Procedure Pass [address] [address] 12/10/2024 1:45 PM EDT Appointment [address] [address] Kristyn Rossi MD [address] [place] [address] 01/25/2025 8:30 AM EST Office Visit [facility] Pulmonary, Allergy and Critical Care Medicine [address] [place] [address] Patrick Lomeli MD [address] [place] [address] [address] [place] [address] [email or web address] Scheduled Referrals Name Type Priority Associated Diagnoses Orde r Schedule Ambulatory referral to [facility] Pulmonology Outpatient Referral Routine Bronchiectasis without complication Ordered: 06/14/2020 documented as of this encounter Visit Diagnoses Diagnosis Bronchiectasis without complication- Primary documented in this encounter Care Teams Poultry Boner Relationship Specialty Start Date End Date Erwin Tran MD [email or web address] PCP - General 11/25/16 08/27/22 Skye Patiño MD [address] [place] [address] [email or web address] PCP - General Family Medicine 08/28/22 12/02/23 Skye Patiño MD [address] [place] [address] [email or web address] PCP - General Family Medicine 12/03/23 Kristyn Rossi MD [address] [place] [address] [email or web address] Primary Oncologist Medical Oncology 10/11/20 08/08/21 Codie Hercules NP [address] [place] [address] [email or web address] Nurse Practitioner Medical Oncology 11/09/20 04/08/24 Karolyn Moody MD [address] [place] [address], [address] [place] [address] [email or web address] General Surgery 11/14/20 Harry Reid MD [address] [place] [address] [email or web address] Radiation Oncology 11/14/20 Kristyn Rossi MD [address] [place] [address] [email or web address] Primary Oncologist Medical Oncology 10/11/20 Patrick Lomeli MD [address] [place] [address] [email or web address] Intensive Care 09/29/23 Neil Lazaro MD [address] [place] [address] [place] [address] Urology 10/12/24 documented as of this encounter Additional Source Comments The information contained in this document represents components of the legal health record. It is not the complete legal health record.[facility]
--- OUTSIDE RECORDS SUMMARY | 2024-12-03 16:32 | XMS_ITS | Encounter Summary ---
Author Organization [facility] Address [address] [place] [address] Phone Care Team Providers Care Aspnet Developer Name Role Phone Erwin Tran MD Primary Care Provider [phone] Kristyn Rossi MD Unavailable Codie Hercules NP Unavailable [phone] Karolyn Moody MD Unavailable [phone] Harry Reid MD Unavailable [phone] Kristyn Rossi MD Unavailable [phone] Skye Patiño MD Primary Care Provider Patrick Lomeli MD Unavailable [phone] Skye Patiño MD Primary Care Provider Neil Lazaro MD Unavailable Reason for Referral * Outpatient Procedure - Closed Specialty Diagnoses / Procedures Referred By Vince t Referred To Contact Radiology Diagnoses Colmenares's esophagus without dysplasia Lower abdominal pain, unspecified Change in bowel habits Procedures NM Gastric Emptying Sury Capellan PA-C Phone: tel: fax: [email or web address]:[email or web address] Referral ID Status Reason Start Date Expiration Date Visits Re quested Visits Authorized [id number] Closed 05/31/2020 05/31/2021 1 1 Encounter Details Date Type Department Care Team (Latest Contact Info) Description 05/31/2020 Transcribe Orders Virtual Department [address] [place] [address] Sury Capellan PA-C [address] [place] [address] Colmenares's esophagus without dysplasia (Primary Dx); Lower abdominal pain, unspecified; Change in bowel habits Social History Tobacco Use Types Packs/Day Years [...] st Contact Info) Description 04/09/2024 Procedure [address] [address] 12/10/2024 1:45 PM EDT Appointment [address] [address] Kristyn Rossi MD [address] [place] [address] [email or web address] 01/25/2025 8:30 AM EST Office Visit [facility] Pulmonary, Allergy and Critical Care Medicine [address] [place] [address] [place] [address] Patrick Lomeli MD [address] [place] [address] 2[address] [place] [address] [email or web address] documented as of this encounter Results * NM GASTRIC EMPTYING SOLID PHASE (06/20/2020 2:41 PM EDT) Anatomical Region Laterality Modality Abdomen, Pelvis Nuclear Medicine 06/20/2020 6:10 PM EDT Impressions 06/20/2020 6:12 PM EDT No evidence of a delay in gastric emptying of solids. Narrative 06/20/2020 6:12 PM EDT HISTORY: Pain. COMPARISON: Gastric emptying study 04/24/2006 DOSE: 1 mCi Tc-99m sulfur colloid in scrambled eggs. EXAM: Nuclear medicine gastric emptying study. FINDINGS: The percent of gastric retention of radiotracer is calculated at one hour, 2 hours and 4 hours. One hour: 52.2% which is within the normal range. 2 hours: 4.1% which is below the normal range. 4 hours: 3.7% which is within the normal range. Procedure Note Wilmer Rosa MD - 06/20/2020 HISTORY: Pain. COMPARISON: Gastric emptying study 04/24/2006 DOSE: 1 mCi Tc-99m sulfur colloid in scrambled eggs. EXAM: Nuclear medicine gastric emptying study. FINDINGS: The percent of gastric retention of radiotracer is calculated at one hour,2 hours and 4 hours. One hour: 52.2% which is within the normal range. 2 hours: 4.1% which is below the normal range. 4 hours: 3.7% which is within the normal range. IMPRESSION: No evidence of a delay in gastric emptying of solids. Sury Capellan PA-C IMG NM ABDOMEN Final Result documented in this encounter Visit Diagnoses Diagnosis Colmenares's esophagus without dysplasia- Primary Lower abdominal pain, unspecified Change in bowel habits Other symptoms involving digestive system Colmenares's esophagus without dysplasia Lower abdominal pain, unspecified Change in bowel habits Other symptoms involving digestive system documented in this encounter Care Teams Aspnet Developer Relationship Specialty Start Date End Date Erwin Tran MD [email or web address] PCP - General 11/25/16 08/27/22 Skye Patiño MD [address] [place] [address] PCP - General Family Medicine 08/28/22 12/02/23 Skye Patiño MD [address] [place] [address] [email or web address] PCP - General Family Medicine 12/03/23 Kristyn Rossi MD [address] [place] [address] @[email or web address] Primary Oncologist Medical Oncology 10/11/20 08/08/21 Codie Hercules NP [address] [place] [address] [email or web address] Nurse Practitioner Medical Oncology 11/09/20 04/08/24 Karolyn Moody MD [address] [place] [address] [email or web address] General Surgery 11/14/20 Harry Reid MD [address] [place] [address] [email or web address] Radiation Oncology 11/14/20 Kristyn Rossi MD [address] [place] [address] [email or web address] Primary Oncologist Medical Oncology 10/11/20 Patrick Lomeli MD [address] [place] [address] [email or web address] Intensive Care 09/29/23 Neil Lazaro MD [address] [place] [address] [place] [address] Urology 10/12/24 documented as of this encounter Additional Source Comments The information contained in this document represents components of the legal health record. It is not the complete legal health record.[facility]
--- OUTSIDE RECORDS SUMMARY | 2024-12-03 16:32 | XMS_ITS | Encounter Summary ---
Author Organization [facility] Address [address] [facility] [address] [place] [address] Phone Care Team Providers Care Sheet Metal Welder Name Role Phone Codie Hercules NP Unavailable [phone] Karolyn Moody MD Unavailable Harry Reid MD Unavailable [phone] Kristyn Rossi MD Unavailable [phone] Patrick Lomeli MD Unavailable Skye Patiño MD Primary Care Provider [phone] Neil Lazaro MD Unavailable Encounter Details Date Type Department Care Team (Late st Contact Info) Description 02/12/2024 Procedure Pass [facility], [address] [address] Social History Tobacco Use Types Packs/Day Years [...] st Contact Info) Description 04/09/2024 Procedure Pass [address] [address] 12/10/2024 1:45 PM EDT Appointment [address] [address] Kristyn Rossi MD [address] [place] [address] 01/25/2025 8:30 AM EST Office Visit [facility] Pulmonary, Allergy and Critical Care Medicine [address] [place] [address] [place] [address] Patrick Lomeli MD [address] [place] [address] [address] [place] [address] [email or web address] documented as of this encounter Visit Diagnoses Not on filedocumented in this encounter Care Teams Sheet Metal Welder Relationship Specialty Start Date End Date Skye Patiño MD [address] [place] [address] PCP - General Family Medicine 12/03/23 Codie Hercules DECORATOR INSPECTOR [address] [place] [address] [email or web address] Nurse Practitioner Medical Oncology 11/09/20 04/08/24 Karolyn Moody MD [address] [address] General Surgery 11/14/20 Harry Reid MD [address] [place] [address] [email or web address] Radiation Oncology 11/14/20 Kristyn Rossi MD [address] [place] [address] Primary Oncologist Medical Oncology 10/11/20 Patrick Lomeli MD [address] [place] [address] [email or web address] Intensive Care 09/29/23 Neil Lazaro MD [address] [place] [address] [place] [address] Urology 10/12/24 documented as of this encounter Additional Source Comments The information contained in this document represents components of the legal health record. It is not the complete legal health record.[facility]
--- OUTSIDE RECORDS SUMMARY | 2024-12-03 16:32 | XMS_ITS | Clinical Summary ---
Author Organization [facility] Address [address] [address] Phone Care Team Providers Care Home Economist Consumer Service Name Role Phone Karolyn Moody MD Unavailable Harry Reid MD Unavailable [phone] Kristyn Rossi MD Unavailable [phone] Patrick Lomeli MD Unavailable Skye Patiño MD Primary Care Provider [phone] Neil Lazaro MD Unavailable Allergies Active Allergy Reactions Criticality Noted Date Comments Morphine Hallucinations High 10/12/2024 Metoclopramide Hcl Acute Generalized Ex anthematous Pustulosis 07/08/2017 Medications valACYclovir (VALTREX) 500 MG tablet Take 500 mg by mouth daily. Active cholecalciferol (VITAMIN D3) 2,000 unit capsule Take 1,000 Units by mouth daily. Active vitamins A,C,I-gvdi-bfzze r (PRESERVISION AREDS) 14,320-226-200 fdvj-ui-olfy Cap Take 1 capsule by mouth 2 (two) times a day with meals. Active acetaminophen-co deine (TYLENOL #2) 300-15 mg per tablet daily as needed. 12/26/19 Active clonazePAM (KLONOPIN) 0.5 MG tablet Take 0.5 mg by mouth 2 (two) times a day as needed. 10/22/19 Active therapeutic multivitamin tablet Take 1 tablet by mouth daily. Active MAGNESIUM CHLORIDE, BULK, MISC by Miscellaneous route. Active exemestane (AROMASIN) 25 mg tablet Take 1 tablet (25 mg total) by mouth daily. 90 tablet 3 02/18/19 25 Active temazepam (RESTORIL) 15 mg capsule TAKE 1 CAPSULE BY MOUTH EVERY DAY AT BEDTIME NEEDED 10/22/19 025 Discontin ued(No longer taking) nortriptyline (PAMELOR) 10 MG capsule Take 1 capsule by mouth every morning. 03/25/19 25 025 Discontin ued(No longer taking) suvorexant (BELSOMRA) 10 mg tablet Take 1 tablet (10 mg total) by mouth nightly at bedtime. Take within 30 minutes of going to bed. 15 tablet 2 06/16/19 25 025 Discontin ued(No longer taking) Hospital, Clinic, or Other Facility Administered Medication Ordered Dose Route Frequency Start Date End Date Status triamcinolone acetonide (KENALOG-40) 40 mg/mL injection 20 mg 20 mg See Adm Inst See admin instructions 03/29/2022 Active lidocaine (XYLOCAINE) 1% injection 0.5 mL 0.5 mL See Adm Inst See admin instructions 03/29/2022 Active Active Problems Patient Care Coordination No te Formatting of this note migh t be different from the original. Height 161.5cm no shoes taken by OC 02/25/2023 Problem Noted Date Diagnosed Date Other insomnia 11/12/2023 Mycobacterium avium intracellulare colonization 06/21/2022 RUBIO (dyspnea on exertion) 06/21/2022 Status post right breast lumpectomy 02/14/2021 Invasive ductal carcinoma of breast, female, rig ht 10/17/2020 Encounters Date Type Department Care Team Description 12/02/2024 Telephone [facility] at [address] [address] Kristyn Rossi MD 6 m w/treatment 11/16/2024 2:40 PM EDT Infusion [facility] at [address] [address] Kristyn Rossi MD Hickson, Lauren, facing end trimmer ductal carcinoma of breast, female, right (Primary Dx) 11/16/2024 2:00 PM EDT Office Visit [facility] at [address] [address] Kristyn Rossi MD Malignant neoplasm of upper-outer quadrant of right breast in female, estrogen receptor positive (Primary Dx); Age-related osteoporosis without current pathological fracture 11/16/2024 1:20 PM EDT - 11/16/2024 11:59 PM EDT Hospital Encounter [facility] Laboratory [address] [place] [address] Kristyn Rossi MD Discharge Disposition: Home or Self Care 11/10/2024 Orders Only [facility] at [address] [address] Sandra Hurst [place] Acute renal failure, unspecified acute renal failure type (Primary Dx) 11/05/2024 5:49 PM EDT - 11/05/2024 11:59 PM EDT Hospital Encounter [address] [address] Kristyn Rossi MD Discharge Disposition: Home or Self Care 10/27/2024 Procedure Pass [address] [address] 10/27/2024 Telephone [facility] at [address] [address] Kristyn Rossi MD renal lesion on usg 10/18/2024 3:45 PM EDT - 10/18/2024 11:59 PM EDT Hospital Encounter [facility] Laboratory [address] [place] [address] Skye Patiño MD Discharge Disposition: Home or Self Care 10/13/2024 9:11 AM EDT - 10/13/2024 11:59 PM EDT Hospital Encounter [address] [address] Kristyn Rossi MD Discharge Disposition: Home or Self Care 10/12/2024 2:00 PM EDT Office Visit [facility] at [address] [address] Kristyn Rossi MD Acute renal failure, unspecified acute renal failure type (Primary Dx); Malignant neoplasm of upper-outer quadrant of right breast in female, estrogen receptor positive 10/12/2024 1:15 PM EDT - 10/12/2024 11:59 PM EDT Hospital Encounter [facility] [address] [place] [address] Kristyn Rossi MD Discharge Disposition: Home or Self Care 10/04/2024 Orders Only [facility] at [address] [place] [address] Sandra Hurst [place] Malignant neoplasm of upper-outer quadrant of right breast in female, estrogen receptor positive (Primary Dx) from Last 3 Months Immunizations Immunization Administration Dates Next Due COVID-19 (Pre-12/02) Moderna Vaccine, mRNA, PF 12/26/2020,04/03/2020 COVID-19 Pfizer Comirnaty Vaccine 12+ 06/01/2024 ,10/29/2023 COVID-19, Unspecified Formulation 12/19/2022,10/2022 INFLUENZA, SPLIT VIRUS, TRIVALENT PF 10/29/2023, 11/09/2012 INFLUENZA, SPLIT VIRUS, TRIV ALENT W/ PRESERVATIVE IM 11/03/2010,11/16/2009 Influenza High-Dose Quadriva lent Preservative Free IM 01/18/2022,12/03/2019 Influenza High-Dose Trivalen t Preservative Free IM 12/09/2018,10/23/2017,10/28/2016,09/26,12/03/2014,12/17/2013 Influenza Quadrivalent Adjuv anted Preservative Free IM 11/08/2022,11/28/2020 Influenza, Unspecified Formulation 11/25,12/11/2007,02/07/2006,12/19 Pneumococcal conjugate PCV13 12/01/2015 Pneumococcal conjugate PCV20 07/30/2022 Pneumococcal polysaccharide PPSV23 08/16/2011 Td (adult) 5 Lf Tetanus Toxo id, PF, Adsorbed 05/27/2013 Td, unspecified formulation 04/26/2002 Tdap 12/03/2019 Zoster live 09/16/2011 Zoster recombinant 03/22/2021,10/04/2020 Family History Medical History Relation Comments Breast cancer Paternal Aunt in middle age Relation Status Comments Father Mother Paternal Aunt Social History Tobacco Use Types Packs/Day Years Used Date Smoking Tobacco: Former Smokeless Tobacco: Never Tobacco Cessation:Counseling Given: Not Answered Comments:smoked for two years as a teen Alcohol Use Standard [...] on file Sexual Orientation Not on file Last Filed Vital Signs Vital Sign Reading Time Taken Comments Blood Pressure 124/71 11/16/2024 1:42 PM EDT Pulse 58 11/16/2024 1:42 PM EDT Temperature 36.5 C (97.7 F) 11/16/2024 1:42 PM EDT Respiratory Rate 20 12/08/2023 12:05 PM EDT Oxygen Saturation 97% 11/16/2024 1:42 PM EDT Inhaled Oxygen Concentration - - Weight 45.3 kg (99 lb 14.4 oz) 11/16/2024 1:42 P M EDT Height 162.6 cm (5' 4.02 ) 11/16/2024 1:42 PM ED T Body Mass Index 17.14 11/16/2024 1:42 PM EDT Plan of Treatment Upcoming Encounters Date Type Department Care Team (Late st Contact Info) Description 04/09/2024 Procedure Pass [address] [address] 12/10/2024 1:45 PM EDT Appointment [address] [address] Kristyn Rossi MD [address] [place] [email or web address] 01/25/2025 8:30 AM EST Office Visit [facility] [address] [place] [address] Patrick Lomeli MD [address] [place] [phone] [email or web address] Health Maintenance Due Date Last Done Comments LIPID PANEL 1946 DEPRESSION SCREENING 1958 SMOKING Hx and SMOKELESS TOBACCO SCREENING 1959 HEPATITIS C SCREENING 01/05/1964 RSV VACCINE (1 - 1-dose 75+ series) 2021 COVID-19 VACCINE ( season) 2025 10/30/2024, 06/01/2024, 10/29/2023, Additional history exists Adult Td,Tdap Booster 12/02/2029 12/03/2019 , 05/27/2013, 04/26/2002 ZOSTER VACCINES Completed 03/22/2021, 09/11, 09/16/2011 PNEUMOCOCCAL VACCINES (50+ years) Completed 07/30/2022, 12/01/2015, 08/16/2011 OSTEOPOROSIS SCREENING INITIAL (ONE-TIME) Completed 09/08/2023, 12/13/2020 INFLUENZA VACCINE Completed 10/14/2024, , 11/25/2022, Additional history exists HEPATITIS A VACCINES Aged Out No long er eligible based on patient's age to complete this topic HIB VACCINES Aged Out No longer eligi ble based on patient's age to complete this topic MENINGOCOCCAL VACCINES (ACWY) Aged Out No longer eligible based on patient's age to complete this topic MENINGOCOCCAL VACCINES (B) Aged Out N o longer eligible based on patient's age to complete this topic Medical Devices Implanted Type Area Airplane Gastank Liner Assembler Device Identifier Shelf Expiration Date Model / Serial / Lot Marker Ultraclip 17ga 10cm Tissue Dual Trigger Breast Ti Renovo Shape Bx/5ea - [id number] Implanted:Qty: 1 on 10/05/2020 by Tristen Abel MD at [facility] Right: Breast [employer] [id number] / / Procedures Procedure Name Priority Date/Time Associated Diagnosis Comments COMPREHENSIVE METABOLIC PANEL Routine 11/16/2024 1:22 PM EDT Acute renal failure, unspecified acute renal failure type CBC AND DIFFERENTIAL Routine 11/16/2024 1:22 PM EDT Acute renal failure, unspecified acute renal failure type CT ABDOMEN (ADRENAL MASS) WITH AND WITHOUT CONTRAST Routine 11/05/2024 6:11 PM EDT Renal mass URINALYSIS W/REFLEX URINE CULTURE Routine 10/18/2024 3:57 PM EDT Acute renal failure, unspecified acute renal failure type TOTAL PROTEIN CREATININE RATIO, RANDOM URINE Routine 10/18/2024 3:57 PM EDT Acute renal failure, unspecified acute renal failure type HC CREATININE OTHER SOURCE Routine 10/18/2024 3:57 PM EDT Acute renal failure, unspecified acute renal failure type FREE LIGHT CHAINS, SERUM Routine 10/18/2024 3:54 PM EDT Acute renal failure, unspecified acute renal failure type MONOCLONAL PROTEIN STUDY, SERUM Routine 10/18/2024 3:54 PM EDT Acute renal failure, unspecified acute renal failure type COMPREHENSIVE METABOLIC PANEL Routine 10/18/2024 3:53 PM EDT C-REACTIVE PROTEIN Routine 10/18/2024 3: 53 PM EDT Acute renal failure, unspecified acute renal failure type SEDIMENTATION RATE (ESR) Routine 10/18/2024 3:53 PM EDT Acute renal failure, unspecified acute renal failure type CBC Routine 10/18/2024 3:53 PM EDT Acute renal failure, unspecified acute renal failure type US KIDNEYS AND BLADDER Routine 9:49 AM EDT Acute renal failure, unspecified acute renal failure type COMPREHENSIVE METABOLIC PANEL Routine 10/12/2024 1:15 PM EDT Malignant neoplasm of upper-outer quadrant of right breast in female, estrogen receptor positive BD DXA AXIAL (SPINE) WITH HIP Routine 09/08/2023 1:31 PM EDT Osteopenia of necks of both femurs from Last 3 Months or Most Recently Relevant to Health Maintenance Results * (ABNORMAL) Comprehensive metabolic panel (11/16/2024 1:22 PM EDT) Only the most recent of3 resultswithin the time period is included. SODIUM 143 133 - 146 mmol/L [facility] POTASSIUM 4.5 3.3 - 5.1 mmol/L [facility] CHLORIDE 106 96 - 108 mmol/L [facility] CO2 27 21 - 35 mmol/L [facility] BUN 20(H) 6 - 19 mg/dL [facility] CREATININE 0.70 0.5 - 1.5 mg/dL [facility] GLUCOSE 104(H) 70 - 99 mg/dL [facility] ALBUMIN 4.2 3.9 - 4.8 g/dL [facility] TOTAL PROTEIN 7.3 6.5 - 8.0 g/dL [facility] CALCIUM 9.8 8.4 - 10.3 mg/dL [facility] ALKALINE PHOSPHATASE 107 39 - 117 U/L [facility] TOTAL BILIRUBIN 0.7 0.0 - 1.2 mg/dL [facility] AST 18 0 - 37 U/L [facility] ALT 13 0 - 40 U/L [facility] GLOBULIN 3.1 1 - 4.8 g/dL [facility] EGFR 88 >59 mL/min/1.7 3m2 [facility] Comment:Estimated glomerular filtration rate calculated using the CKD-EPI refit equation. ANION GAP 15 10 - 20 mmol/L [facility] Blood 11/16/2024 1:22 PM EDT 11/16/2024 1:25 PM EDT us Kristyn Rossi MD LAB BLOOD ORDERABLES Final Re sult [address] [address] * (ABNORMAL) CBC and differential (11/16/2024 1:22 PM EDT) WBC 7.32 4.00 - 11.00 K/uL [facility] RBC 3.83(L) 4.00 - 5.20 M/uL [facility] HGB 12.3 12.0 - 16.0 g/dL [facility] HCT 37.9 36.0 - 46.0 % [facility] PLT 235 150 - 450 K/uL [facility] MCV 99.0 80.0 - 100.0 fL [facility] MCH 32.1(H) 27.0 - 31.0 pg [facility] MCHC 32.5 32.0 - 36.0 g/dL [facility] RDW 14.2 11.5 - 14.5 % [facility] MPV 10.4 8.4 - 12.0 fL [facility] NRBC 0.00 0.00 /100 WBCs [facility] ABSOLUTE NRBC 0.00 0.00 K/uL [facility] DIFF METHOD Auto [facility] NEUTS 70.5 48.0 - 76.0 % [facility] LYMPHS 20.6 18.0 - 41.0 % [facility] MONOS 6.3 4.0 - 11.0 % [facility] EOS 1.8 0.0 - 5.0 % [facility] BASOS 0.5 0.0 - 1.5 % [facility] Granulocytes, immature (%) 0.3 0.0 - 0.9 % [facility] ABSOLUTE NEUTS 5.16 1.92 - 7.60 K/uL [facility] ABSOLUTE LYMPHS 1.51 0.72 - 4.10 K/uL [facility] ABSOLUTE MONOS 0.46 0.16 - 1.10 K/uL [facility] ABSOLUTE EOS 0.13 0.00 - 0.50 K/uL [facility] ABSOLUTE BASOS 0.04 0.00 - 0.15 K/uL [facility] Granulocytes, immature 0.02 0.00 - 0.09 K/uL [facility] Blood 11/16/2024 1:22 PM EDT 11/16/2024 1:25 PM EDT us Kristyn Rossi MD LAB BLOOD ORDERABLES Final Re sult Performing Organization Address City/State/[facility] Co de Phone Number [address] [address] * CT ABDOMEN (ADRENAL MASS) WITH AND WITHOUT CONTRAST (11/05/2024 6:11 PM EDT) Anatomical Region Laterality Modality Abdomen, Abdominal Vasculature C omputed Tomography 11/08/2024 2:39 PM EDT Impressions 11/08/2024 2:52 PM EDT 1. Left mid renal lesion with no definite postcontrast enhancement, favored to represent a cyst. This is minimally increased in size when compared to 2019. 2. Left renal angiomyolipoma, unchanged. 3. Extensive bronchiectasis/bronchiolectasis and tree-in-bud nodularity in the imaged lung bases, favored to represent a chronic endobronchial infectious/inflammatory process. Narrative 11/08/2024 2:[address] ABDOMEN (ADRENAL MASS) WITH AND WITHOUT CONTRAST Referring clinician's provided indication for this examination in Epic: * Renal mass, normal renal function; CT recommended by radiology to assess lesions of left kidney TECHNIQUE: Multidetector-row CT of the abdomen was performed before and after administration of intravenous contrast using tailored dose modulation techniques. Images were reconstructed in the axial, coronal, and sagittal planes COMPARISON: Renal ultrasound 10/13/2024, abdomen/pelvis CT 08/23/2018 FINDINGS: Lower Chest: Bronchiectasis/bronchiolectasis with multifocal mucus plugging most prominent within the right middle lobe and lingula and extensive tree-in-bud nodularity Liver: 7 mm hypoattenuating focus in segment 5/6 (series 8, image 209), too small to accurately characterize and statistically representing a cyst. Biliary: No biliary ductal dilatation. Spleen: No splenomegaly or focal lesions. Pancreas: No masses or ductal dilatation. Adrenal Glands: No nodules. Kidneys/Ureters: No right-sided hydronephrosis, nephrolithiasis or solid renal mass. Subcentimeter hypoattenuating foci, too small to accurately characterize and statistically representing cysts. No left-sided hydronephrosis or nephrolithiasis. There is a 11 mm anterior mid renal angiomyolipoma (series 2, image 28), previously 11 mm 09/02/2018. There is a 2.2 x 1.7 cm hypodense lesion in the left mid kidney (series 8, image 127). This demonstrates no definite postcontrast enhancement. This previously measured up to 1.8 cm 09/02/2018. Bowel: No dilatation or wall thickening. Calcified focus within a retained gastric diverticulum (series 10, image 30). No surrounding inflammatory change. Peritoneum/Retroperitoneum: No masses, pneumoperitoneum, or fluid. Lymph Nodes: No lymphadenopathy. Vessels: No abdominal aortic aneurysm. Moderate atherosclerotic vascular calcification. Patent main portal vein. Circumaortic left renal vein Bones/Soft Tissues: Multilevel degenerative changes of the thoracolumbar spine. No destructive osseous lesions. Procedure Note Cheyenne Bhatia MD - 11/08/2024 CT ABDOMEN (ADRENAL MASS) WITH AND WITHOUT CONTRAST Referring clinician's provided indication for this examination in Epic: *Renal mass, normal renal function; CT recommended by radiology to assesslesions of left kidney TECHNIQUE: Multidetector-row CT of the abdomen was performed before andafter administration of intravenous contrast using tailored dosemodulation techniques. Images were reconstructed in the axial, coronal,and sagittal planes COMPARISON: Renal ultrasound 10/13/2024, abdomen/pelvis CT 08/23/2018 FINDINGS: Lower Chest: Bronchiectasis/bronchiolectasis with multifocal mucusplugging most prominent within the right middle lobe and lingula andextensive tree-in-bud nodularity Liver: 7 mm hypoattenuating focus in segment 5/6 (series 8, image 209),too small to accurately characterize and statistically representing acyst. Biliary: No biliary ductal dilatation. Spleen: No splenomegaly or focal lesions. Pancreas: No masses or ductal dilatation. Adrenal Glands: No nodules. Kidneys/Ureters: No right-sided hydronephrosis, nephrolithiasis or solidrenal mass. Subcentimeter hypoattenuating foci, too small to accuratelycharacterize and statistically representing cysts. No left-sided hydronephrosis or nephrolithiasis. There is a 11 mm anteriormid renal angiomyolipoma (series 2, image 28), previously 11 mm 09/02/2018.There is a 2.2 x 1.7 cm hypodense lesion in the left mid kidney (series 8,image 127). This demonstrates no definite postcontrast enhancement. Thispreviously measured up to 1.8 cm 09/02/2018. Bowel: No dilatation or wall thickening. Calcified focus within a retainedgastric diverticulum (series 10, image 30). No surrounding inflammatorychange. Peritoneum/Retroperitoneum: No masses, pneumoperitoneum, or fluid. Lymph Nodes: No lymphadenopathy. Vessels: No abdominal aortic aneurysm. Moderate atherosclerotic vascularcalcification. Patent main portal vein. Circumaortic left renal vein Bones/Soft Tissues: Multilevel degenerative changes of the thoracolumbarspine. No destructive osseous lesions. IMPRESSION: 1. Left mid renal lesion with no definite postcontrast enhancement,favored to represent a cyst. This is minimally increased in size whencompared to 2019. 2. Left renal angiomyolipoma, unchanged. 3. Extensive bronchiectasis/bronchiolectasis and tree-in-bud nodularityin the imaged lung bases, favored to represent a chronic endobronchialinfectious/inflammatory process. Kristyn Rossi MD IM CT XSPECIALTY ORDERABLES Final Result * Urinalysis w/reflex Urine Culture (10/18/2024 3:57 PM EDT) COLOR Yellow Yellow [facility] CLARITY Clear [facility] GLUCOSE Negative Negative [facility] BILI Negative Negative [facility] KETONES Negative Negative [facility] SPECIFIC GRAVITY 1.020 1.005 - 1.030 [facility] BLOOD Negative Negative [facility] PH 6.0 5.0 - 8.0 [facility] Protein-UA Negative Negative [facility] NITRITE Negative Negative [facility] Leukocyte esterase, ur Negative Negative [facility] Urine (Urine) 10/18/2024 3:5 7 PM EDT 10/18/2024 4:00 PM EDT Skye Patiño MD URINE ORDERABLES Final Res ult Performing Organization Address [facility] de Phone Number [address] [address] * TOTAL PROTEIN CREATININE RATIO, RANDOM URINE (10/18/2024 3:57 PM EDT) URINE TOTAL PROTEIN 12.0 mg/dL [facility] URINE CREATININE 106 mg/dL [facility] URINE TP CRE RATIO 0.11 0 - 0.19 [facility] Urine (Urine) 10/18/2024 3:5 7 PM EDT 10/18/2024 4:00 PM EDT Skye Patiño MD URINE ORDERABLES Final Res ult Performing Organization Address [facility] Co de Phone Number [address] [address] * MONOCLONAL PROTEIN STUDY, RANDOM URINE (10/18/2024 3:57 PM EDT) M-Protein Isotope MS, Random, U No monoclonal protein detected. [facility] Comment: (NOTE) ADDITIONAL INFORMATION The submitted sample was assayed by five separate immunopurifications for IgG, IgA, IgM, kappa and lambda. The result reflects the findings of either no monoclonal protein detected or those monoclonal immunoglobulins that were detected. This test was developed and its performance characteristics determined by [facility] in a manner consistent with CLIA requirements. This test has not been cleared or approved by the U.S. Food and Drug Administration. Flag M-Protein Isotope MS, Random, U Negative Negative [facility] DR Albumin 4.4 mg/dL [facility] [address] Alpha-1 Globulin 1.0 mg/dL [facility] Alpha-2 Globulin 1.9 mg/dL [facility] Beta Globulin 2.0 mg/dL [facility] DR Gamma Globulin 2.5 mg/dL [facility] [address] A/G RATIO 0.60 % [facility] DR M SPIKE Test component not applicable or not reported. [facility] M SPIKE Test component not applicable or not reported. [facility] IMPRESSION SEE NOTE [facility] Comment: (NOTE) All fractions present, no apparent M-spike. See Isotype. ADDITIONAL INFORMATION This test has been modified from the event coordinator marketing and sales's instructions. Its performance characteristics were determined by [facility] in a manner consistent with CLIA requirements. This test has not been cleared or approved by the U.S. Food and Drug Administration. Protein, Total, Random, U 12 mg/dL [facility] DPT OF LAB MED AND PAT+ Creatinine, Random, U 109 16 - 326 mg/dL [facility] DPT OF LAB MED AND PAT+ Protein/Creatinine Ratio 0.11 <0.18 mg/mg [facility] DPT OF LAB MED AND PAT+ Urine (Urine) 10/18/2024 3:5 7 PM EDT 10/18/2024 4:00 PM EDT Skye Patiño MD URINE ORDERABLES Final Res ult [facility] DPT OF LAB MED AND PAT+ [address] [place] [address] [facility] [address] [place] [address] * Monoclonal protein study, serum (10/18/2024 3:54 PM EDT) M-protein GK Test component not applicable or not reported. g/dL [facility] [address] M-protein GL Test component not applicable or not reported. g/dL [facility] [address] M-protein AK Test component not applicable or not reported. g/dL [facility] [address] M-protein AL Test component not applicable or not reported. g/dL [facility] DR M-protein MK Test component not applicable or not reported. g/dL [facility] [address] M-protein ML Test component not applicable or not reported. g/dL [facility] [address] Glycosylation Test component not applicable or not reported. [facility] Flag, M-protein Isotype Negative Negative [facility] QMPTS Interpretation No monoclonal protein detected. [facility] Comment: (NOTE) ADDITIONAL INFORMATION The submitted sample was assayed by five separate immunopurifications for IgG, IgA, IgM, kappa and lambda. The result reflects the findings of either no monoclonal protein detected or those monoclonal immunoglobulins that were detected. This test was developed and its performance characteristics determined by [facility] in a manner consistent with CLIA requirements. This test has not been cleared or approved by the U.S. Food and Drug Administration. IgA 103 61 - 356 mg/dL [facility]/[address] IgM 122 37 - 286 mg/dL [facility] IgG 1,020 767 - 1,590 mg/dL [facility] Therapeutic Antibody Administered? Unknown [facility] Comment:Corrected on 10/21 A T 1136: previously reported as UNKNOWN Blood 10/18/2024 3:54 PM EDT 10/18/2024 3:57 PM EDT us Skye Patiño MD LAB BLOOD ORDERABLES Edite d Result - Final Performing Organization Address [facility] Co de Phone Number [facility] MED/PATH [address] [place] [address] * Free light chains, serum (10/18/2024 3:54 PM EDT) Mosier Free Light Chain 1.69 0.3300 - 1.94 mg/dL [facility] [place] Lambda Free Light Chain 1.34 0.5700 - 2.63 mg/dL [facility] [place] Mosier/Lambda FLC Ratio 1.26 0.2600 - 1.65 [facility] [place] Blood 10/18/2024 3:54 PM EDT 10/18/2024 3:57 PM EDT us Skye Patiño MD LAB BLOOD ORDERABLES Final Result Performing Organization Address [facility] de Phone Number [facility] MED/[address] [place] [address] * (ABNORMAL) Sedimentation rate (ESR) (10/18/2024 3:53 PM EDT) ESR 33(H) 0 - 30 mm/h [facility] Blood 10/18/2024 3:53 PM EDT 10/18/2024 3:58 PM EDT us Skye Patiño MD LAB BLOOD ORDERABLES Final Result Performing Organization Address [facility] Co de Phone Number [facility] [address] [place] [address] * (ABNORMAL) CBC (10/18/2024 3:53 PM EDT) WBC 9.07 4.00 - 11.00 K/uL [facility] RBC 3.87(L) 4.00 - 5.20 M/uL [facility] HGB 12.6 12.0 - 16.0 g/dL [facility] HCT 38.0 36.0 - 46.0 % [facility] PLT 215 150 - 450 K/uL [facility] MCV 98.2 80.0 - 100.0 fL [facility] MCH 32.6(H) 27.0 - 31.0 pg [facility] MCHC 33.2 32.0 - 36.0 g/dL [facility] RDW 14.1 11.5 - 14.5 % [facility] MPV 10.4 8.4 - 12.0 fL [facility] NRBC 0.00 0.00 /100 WBCs [facility] ABSOLUTE NRBC 0.00 0.00 K/uL [facility] Blood 10/18/2024 3:53 PM EDT 10/18/2024 3:58 PM EDT Skye Patiño MD LAB BLOOD ORDERABLES Final Result [address] [address] * (ABNORMAL) C-Reactive Protein (10/18/2024 3:53 PM EDT) C REACTIVE PROTEIN 5.8(H) 0.0 - 4.0 mg/L [facility] Blood 10/18/2024 3:53 PM EDT 10/18/2024 3:58 PM EDT Skye Patiño MD LAB BLOOD ORDERABLES Final Result [address] [address] * US Kidneys and Bladder (10/13/2024 9:49 AM EDT) MGB IMG [employer]SE LABORER COMMENT Follow-up CT or MRI of the abdomen when clinically appropriate. [facility] Anatomical Region Laterality Modality Abdomen, Kidney Ultrasound 10/13/2024 9:54 AM EDT Impressions 10/13/2024 10:00 AM EDT 1. No hydronephrosis. 2. Left renal lesions are incompletely characterized, possibly for technical reasons. Follow-up CT or MRI of the abdomen recommended for further characterization when clinically appropriate. A clinically significant result was initiated on 10/13/2024 10:00 AM, Message ID [id number]. Narrative 10/13/2024 10:00 AM EDT US KIDNEYS AND BLADDER Referring clinician's provided indication for this examination in [facility]: Renal failure, acute TECHNIQUE: Kidney Ultrasound. COMPARISON: CT abdomen/pelvis 09/02/2018. FINDINGS: Right Kidney: Size: 11.2 cm No stones or hydronephrosis. Left Kidney: Size: 11.6 cm No hydronephrosis. Echogenic cortical lesion without shadowing measures 6 mm, of uncertain etiology. Anechoic left mid renal lesion measures 1.8 x 2.1 x 2.5 cm, without definite increased through transmission. This may represent a cyst but is incompletely characterized. Bladder: Within normal limits. Procedure Note Harry Hernadez MD - 10/13/2024 US KIDNEYS AND BLADDER Referring clinician's provided indication for this examination in [facility]:Renal failure, acute TECHNIQUE: Kidney Ultrasound. COMPARISON: CT abdomen/pelvis 09/02/2018. FINDINGS: Right Kidney: Size: 11.2 cm No stones or hydronephrosis. Left Kidney: Size: 11.6 cm No hydronephrosis. Echogenic cortical lesion without shadowing measures 6 mm, of uncertainetiology. Anechoic left mid renal lesion measures 1.8 x 2.1 x 2.5 cm, withoutdefinite increased through transmission. This may represent a cyst but isincompletely characterized. Bladder: Within normal limits. IMPRESSION: 1. No hydronephrosis. 2. Left renal lesions are incompletely characterized, possibly fortechnical reasons. Follow-up CT or MRI of the abdomen recommended forfurther characterization when clinically appropriate. A clinically significant result was initiated on 10/13/2024 10:00 AM,Message ID [id number]. us Kristyn Rossi MD [facility] RENAL Final Result * BD DXA AXIAL (SPINE) WITH HIP (09/08/2023 1:31 PM EDT) Anatomical Region Laterality Modality Bone Density Bone Density 09/08/2023 1:27 PM EDT Impressions 09/08/2023 3:06 PM EDT Interpretation: Osteoporosis. Narrative 09/08/2023 3:06 PM EDT Referred By: KRISTYN ROSSI Indications: Osteoporosis and Long-Term Treatment with Aromatase inhibitors Scanner: [employer] A with serial# of [id number] located at [facility] Bone Density Scan (DXA) 09/08/23 Details of prior DXA scans are available by clicking View Image BMD T- Z- Skeletal Site gm/cm2 score score BMD Change Since Prior Scan ------ ----- ----- PA Spine (L1-L4) 0.896 -1.40 1.20 -0.003 (stable) since 12/13/2020 Total Hip (Left) 0.635 -2.50 -0.60 -0.051 (-7.4%)* since 12/13/2020 Femoral Neck (Left) 0.523 -2.90 -0.70 -0.032 (-5.8%)* since 12/13/2020 ------ ----- ----- * Denotes significant change when >= 0.022 g/cm2 for the spine, 0.027 g/cm2 for the total hip, 0.029 g/cm2 for the femoral neck. Interpretation: Osteoporosis. Technical Quality: Imaging of all sites was of adequate quality. FRAX: A FRAX(r) score is not provided because the patient has osteoporosis, which is generally an indication for treatment. Additional Information: -World Health Organization criteria classify adults based on lowest T-score at PA spine, hip or forearm: Normal (T-score >= -1.0), Osteopenia (T-score between -1 and -2.5), or Osteoporosis (T-score <= -2.5). At [facility], T-scores are compared to peak bone density of a young white gender matched reference population. - For premenopausal women and men under the age of 50, Z-scores (comparison to age, gender, and ethnicity matched reference population) are used: Above expected range for age (Z-score >= 2.0), Within expected range of age (Z-score 1.9 to -1.9), or Below expected range for age (Z-score <= -2.0). - The Bone Health and Osteoporosis Foundation recommends that treatment be considered in men aged more than 50 years and in postmenopausal women with ANY of the following: Prior hip or vertebral fractures; T-score of <= -2.5 at the PA spine or hip; or 10 year fracture probability by FRAX of >= 3% for the hip or >= 20% for major osteoporotic fracture. - The FRAX algorithm (https://www.sienna.ac.uk/FRAX/tool.aspx) is designed to predict 10-year fracture risk in treatment-naive adults between the ages of 40 and 90. It is not intended to be used in those receiving pharmacologic osteoporosis treatment. - Including race/ethnicity in the generation of T- or Z-scores or in the FRAX calculation is complicated, and currently undergoing active review to ensure that we can give patients the best information on their risk of fracture. -Some prior studies may not be compatible with our comparison software. -Click on View Full Report to see subsequent pages with images and prior bone density results. Reviewed By: Kaiden Jaquez on 09/08/2023 15:06:09 Procedure Note Kaiden Jaquez MD - 09/08/2023 Referred By: KRISTYN ROSSI Indications: Osteoporosis and Long-Term Treatment with Aromataseinhibitors Scanner: [employer] Horizon A with serial# of [id number] located at [facility] Bone Density Scan (DXA) 09/08/23 Details of prior DXA scans are available by clicking View Image BMD T- Z- Skeletal Site gm/cm2 score score BMD Change Since Prior Scan ------ ----- PA Spine (L1-L4) 0.896 -1.40 1.20 -0.003 (stable) since12/13/2020 Total Hip (Left) 0.635 -2.50 -0.60 -0.051 (-7.4%)* 12/13/2020 Femoral Neck (Left) 0.523 -2.90 -0.70 -0.032 (-5.8%)* 12/13/2020 ------ ----- * Denotes significant change when >= 0.022 g/cm2 for the spine, 0.027g/cm2 for the total hip, 0.029 g/cm2 for the femoral neck. Interpretation: Osteoporosis. Technical Quality: Imaging of all sites was of adequate quality. FRAX: A FRAX(r) score is not provided because the patient hasosteoporosis, which is generally an indication for treatment. Additional Information: -World Health Organization criteria classify adults based on lowestT-score at PA spine, hip or forearm: Normal (T-score >= -1.0), Osteopenia (T-score between -1 and -2.5), or Osteoporosis (T-score <= -2.5). At [facility], T-scores are compared to peak bone density of a young white gender matched reference population. - For premenopausal women and men under the age of 50, Z-scores(comparison to age, gender, and ethnicity matched reference population) are used:Above expected range for age (Z-score >= 2.0), Within expected range of age (Z-score 1.9 to -1.9), or Below expected range for age (Z-score <= -2.0). - The Bone Health and Osteoporosis Foundation recommends that treatment be considered in men aged more than 50 years and in postmenopausal women with ANY of the following: Prior hip or vertebral fractures; T-score of <= -2.5 at the PA spine or hip; or 10 year fracture probability by FRAX of >= 3%for the hip or >= 20% for major osteoporotic fracture. - The FRAX algorithm (https://www.sienna.ac.uk/FRAX/tool.aspx) is designed to predict 10-year fracture risk in treatment-naive adultsbetween the ages of 40 and 90. It is not intended to be used in those receiving pharmacologic osteoporosis treatment. - Including race/ethnicity in the generation of T- or Z-scores or in the FRAX calculation is complicated, and currently undergoing active review to ensure that we can give patients the best information on their risk of fracture. -Some prior studies may not be compatible with our comparison software. -Click on View Full Report to see subsequent pages with images and prior bone density results. Reviewed By: Kaiden Jaquez on 09/08/2023 15:06:09 IMPRESSION: Interpretation: Osteoporosis. Kristyn Rossi MD IMG BD BONE DENSITY DEXA Kelli l Result from Last 3 Months or Most Recently Relevant to Health Maintenance Insurance [employer]IC[place] [address] [address] [place] [address] MEDICARE PPO BLUE REPLACEMENT Member Subscriber Plan / Payer (Ef fective 2010-Present) Name:Oswaldo Flores Relation to Subscriber:Self Name:Oswaldo Flores Payer ID:[id number] (NAIC) Type:Medicare Address: [address] [place], [place] MEDICARE PPO BLUE REPLACEMENT Member Subscriber Plan / Payer (Ef fective 2010-Present) Name:Oswaldo Flores Relation to Subscriber:Self Name:Oswaldo Flores Payer ID:[id number] (NAIC) Type:Medicare Address: [address] [place], [place] MEDICARE PPO BLUE REPLACEMENT Member Subscriber Plan / Payer (Ef fective 2010-Present) Name:Oswaldo Flores Relation to Subscriber:Self Name:Oswaldo Flores Payer ID:[id number] (NAIC) Type:Medicare Address: [address] [place], [place] MEDICARE PPO BLUE REPLACEMENT Member Subscriber Plan / Payer (Ef fective 2010-) Name:Oswaldo Flores Relation to Subscriber:Self Name:Oswaldo Flores Payer ID:[id number] (NAIC) Type:Medicare Address: [address] [place], [place] [address] MEDICARE PPO [place] [address] [address] [place] [address] MEDICARE PPO BLUE REPLACEMENT Advance Directives For more information, please contact: [phone] (9AM - 5PM [facility], Friday-Friday) Documents on File Type Date Recorded Patient Ward Nurse Expl anation Healthcare Proxy 11/02/2020 3:02 PM * Full Code (Latest Code Status on File) Date Activated Date Inactivated Comments 11/01/2020 7:48 AM Question Answer Comments Code Status Confirmed With: Patient Care Teams Home Economist Consumer Service Relationship Specialty Start Date End Date Skye Patiño MD [address] [place] [address] [email or web address] PCP - General Family Medicine 12/03/23 Karolyn Moody MD [address] [place] [address] General Surgery 11/14/20 Harry Reid MD [address] [place] [address] [email or web address] Radiation Oncology 11/14/20 Kristyn Rossi MD [address] [place] [address] Primary Oncologist Medical Oncology 10/11/20 Patrick Lomeli MD [address] [place] [address] [email or web address] Intensive Care 09/29/23 Neil Lazaro MD [address] [place] [address] [place] [address] Urology 10/12/24 Additional Source Comments The information contained in this document represents components of the legal health record. It is not the complete legal health record.[facility]
--- OUTSIDE RECORDS SUMMARY | 2024-12-03 16:32 | XMS_ITS | Encounter Summary ---
Author Organization [facility] Address [address] [place] [address] Phone Care Team Providers Care Gate Watchman Name Role Phone Erwin Tran MD Primary Care Provider [phone] Kristyn Rossi MD Unavailable [phone] Codie Hercules SALES AGENT [employer] Unavailable [phone] Karolyn Moody MD Unavailable [phone] Harry Reid MD Unavailable [phone] Kristyn Rossi MD Unavailable [phone] Skye Patiño MD Primary Care Provider [phone] Patrick Lomeli MD Unavailable [phone] Skye Patiño MD Primary Care Provider + [phone] Neil Lazaro MD Unavailable Encounter Details Date Type Department Care Team (Late st Contact Info) Description 07/08/2017 Procedure Pass [facility] Endoscopy Admitting Dept Virtual Department [address] [place] [address] Social History Tobacco Use Types Packs/Day Years [...] (Late Contact Info) Description 04/09/2024 Procedure Pass [facility] [address] [facility] [place] [address] 12/10/2024 1:45 PM EDT Appointment [facility], Mammography- [address] [address] Kristyn Rossi MD [address] [place] [address] 01/25/2025 8:30 AM EST Office Visit [facility] Pulmonary, Allergy and Critical Care Medicine [address] [place] [address] [place] [address] Patrick Lomeli MD [address] [place] [address] dulce documented as of this encounter Visit Diagnoses Not on filedocumented in this encounter Care Teams Gate Watchman Relationship Specialty Start Date End Date Erwin Tran MD PCP - General 11/25/16 08/27/22 Skye Patiño MD [address] [place] [address] PCP - General Family Medicine 08/28/22 12/02/23 Skye Patiño MD [address] [place] [address] PCP - General Family Medicine 12/03/23 Kristyn Rossi MD [address] [place] [address] Primary Oncologist Medical Oncology 10/11/20 08/08/21 Codie Hercules, SALES AGENT [employer] [address] [place] [address] [email or web address] Nurse Practitioner Medical Oncology 11/09/20 04/08/24 Karolyn Moody MD [address] [place] [address] General Surgery 11/14/20 Harry Reid MD [address] [place] [address] [email or web address] Radiation Oncology 11/14/20 Kristyn Rossi MD [address] [place] [address] [email or web address] Primary Oncologist Medical Oncology 10/11/20 Patrick Lomeli MD [address] [place] [address] [email or web address] Intensive Care 09/29/23 Neil Lazaro MD [address] [place] [address] [place] [address] Urology 10/12/24 documented as of this encounter Additional Source Comments The information contained in this document represents components of the legal health record. It is not the complete legal health record.[facility]
--- OUTSIDE RECORDS SUMMARY | 2024-12-03 16:32 | XMS_ITS | Encounter Summary ---
Author Organization [facility] Address [email or web address] [address] [address] Phone Care Team Providers Care Drug Enforcement Administration Agent Name Role Phone Codie Hercules NP Unavailable [phone] Karolyn Moody MD Unavailable Harry Reid MD Unavailable [phone] Kristyn Rossi MD Unavailable [phone] Patrick Lomeli MD Unavailable Skye Patiño MD Primary Care Provider [phone] Neil Lazaro MD Unavailable Encounter Details Date Type Department Care Team (Late st Contact Info) Description 12/08/2023 Procedure Pass [facility] Endoscopy Admitting Dept Virtual Department [address] [place] [address] Social History Tobacco Use Types Packs/Day Years [...] with a working camera? Not on file 05 / Intimate Partner Violence Answer Date R ecorded [...] st Contact Info) Description 04/09/2024 Procedure Pass [address] [address] 12/10/2024 1:45 PM EDT Appointment [address] [address] Kristyn Rossi MD [address] [place] [address] [email or web address] 01/25/2025 8:30 AM EST Office Visit [facility] Pulmonary, Allergy and Critical Care Medicine [address] [place] [address] Patrick Lomeli MD [address] [place] [address] [address] [place] [address] dulce documented as of this encounter Visit Diagnoses Not on filedocumented in this encounter Care Teams Drug Enforcement Administration Agent Relationship Specialty Start Date End Date Skye Patiño MD [address] [place] [address] PCP - General Family Medicine 12/03/23 Codie Hercules, CYLINDER HANDLER [address] [place] [address] [email or web address] Nurse Practitioner Medical Oncology 11/09/20 04/08/24 Karolyn Moody MD [address] [address] General Surgery 11/14/20 Harry Reid MD [address] [place] [address] [email or web address] Radiation Oncology 11/14/20 Kristyn Rossi MD [address] [place] [address] [email or web address] Primary Oncologist Medical Oncology 10/11/20 Patrick Lomeli MD [address] [place] [address] [email or web address] Intensive Care 09/29/23 Neil Lazaro MD [address] [place] [address] [place] [address] Urology 10/12/24 documented as of this encounter Additional Source Comments The information contained in this document represents components of the legal health record. It is not the complete legal health record.[facility]
== END 2024-12-03 15:21 | disposition home or self-care (01) ==
LOC: HO.HSM 14:50
PROVIDERS: PCP Family Medicine; Visit Provider Nurse Practitioner
DX: G44.51 Hemicrania continua (principal)
CPT/HCPCS: 99214

== ENCOUNTER 2025-01-03 14:46 | Outpatient (REF) | payer MEDICARE, SELFPAY ==
[2025-01-03 15:26] LABS: MANUAL DIFF FLAG NO
[2025-01-03 15:48] LABS: Hematocrit 38.7 % (37.0-47.0); Hemoglobin 12.8 g/dl (12.0-16.0); Imm Gran Abs Auto 0.02 X10*3/uL (0.00-0.03); Imm Gran Pct Auto 0.3 % (0.0-0.4); Lymphocytes Absolute Auto 1.6 X10*3/uL (1.2-4.9); Mean Corpuscular HGB Conc 33.1 g/dl (31.0-35.0); Mean Corpuscular Hemoglobin 31.5 pg (27.0-33.0); Mean Corpuscular Volume 95.3 fL (80.0-98.0); NRBC Abs Auto 0.000 X10*3/uL (0.0-0.012); NRBC Pct Auto 0.0 /100WBC (0.0-0.2); Platelet Count 212 X10*3/uL (160-400); Red Blood Count 4.06 X10*6/uL (4.20-5.50); White Blood Count 7.6 X10*3/uL (4.8-10.8)
[2025-01-03 16:22] LABS: Alanine Aminotransferase 18 U/L (0-31); Albumin Level 4.9 g/dL (3.5-5.0); Alkaline Phosphatase 108 U/L (39-117); Anion Gap 12 (12-20); Aspartate Amino Transferase 27 U/L (5-31); Blood Urea Nitrogen 21 mg/dL (9-16); Calcium 9.5 mg/dL (8.4-10.2); Carbon Dioxide 29 mmol/L (22-29); Chloride 108 mmol/L (96-108); Estimated Glomerular Filt Rate > 60; Potassium 4.5 mmol/L (3.3-5.1); Sodium 144 mmol/L (135-145); Total Protein 7.9 g/dL (6.5-8.0)
== END 2025-01-03 14:47 | disposition home or self-care (01) ==
LOC: HO.LAB 14:46
PROVIDERS: PCP Family Medicine; Visit Provider Nurse Practitioner
DX: G44.51 Hemicrania continua (principal); Z79.899 Other long term (current) drug therapy
CPT/HCPCS: 36415; 80053; 85025

== ENCOUNTER 2025-01-03 14:46 | Outpatient (AMB) | payer BC, SELFPAY ==
--- OUTSIDE RECORDS SUMMARY | 2012-07-12 23:00 | XMS_ITS | Encounter Summary ---
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 Name Role Phone Unavailable Primary Care Provider Unavailabl e Encounter Details Date Type Department Care Team (Late st Contact Info) Description 07/13/2012 Hospital Encounter [facility],Outside Imaging [address] [place] [address] System, Provider Not In, [facility] [address] [id number] Social History Tobacco Use Types Packs/Day Years Used Date Smoking Tobacco: Former Smokeless Tobacco: Never Comments:smoked for two year s as a teen Alcohol Use Standard Drinks/Week Comments Yes 4 (1 standard drink = 0.6 oz pur e alcohol) Education Answer Date Recorded Are you interested in more education? Not on ada e 06/07/2022 Are you concerned about learning? Not on file 06/07/2022 No 06/07/2022 No 06/07/2022 Digital Access Answer Date Recorded No 07/06/2022 No 07/06/2022 Reliable internet access at home? Not on file 07/06/2022 Device with a working camera? Not on file Intimate Partner Violence Answer Date R ecorded Are you denied basic needs s uch as food, clothing, or medical care? No 12/08/2023 In the past 12 months have y ou been in a relationship with a person who hurts, threatens, or tries to control you? No 12/08/2023 Are you denied basic needs s uch as food, clothing, or medical care? No 12/08/2023 In the past 12 months have y ou been in a relationship with a person who hurts, threatens, or tries to control you? No 12/08/2023 Comments No Sex and Gender Information Value Date Recorded Sex Assigned at Not on file Legal Sex Female 10:07 PM EDT Gender Identity Not on file Sexual Orientation Not on file documented as of this encounter Plan of Treatment Upcoming Encounters Date Type Department Care Team (Late st Contact Info) Description 01/25/2025 8:30 AM EST Office Visit [facility] [address] [facility] [place] [address] [place] [address] Patrick Lomeli MD [address] [facility] 2nd [place] [address] dulce 05/18/2025 1:00 PM EDT Blood Draw [facility] [address] [address] Kristyn Rossi MD [address] [place] [phone] [email or web address] 05/18/2025 2:00 PM EDT Office Visit [facility] at [address] [address] Kristyn Rossi MD [address] [place] [phone] 05/18/2025 2:40 PM EDT Infusion [facility] at [address] [address] Kristyn Rossi MD [address] [place] [phone] Danay Valentin RN [address] [place] [phone] documented as of this encounter Procedures Procedure Name Priority Date/Time Associated Diagnosis Comments BI MAMMOGRAM OUTSIDE (NO INTERPRETATION) Routine 07/13/2012 12:00 AM EDT documented in this encounter Results * Mammogram Outside (No Interpretation) (07/13/2012 12:00 AM EDT) Narrative SYSTEMGENERATED, DOCUMENTATION - 09/27/2020 4:06 PM EDT This study is for PACS storage only and not for interpretation. us Provider Not In System [facility] OUTSIDE IMAGING W /OUT INTERPRETATION Final Result documented in this encounter Visit Diagnoses Not on filedocumented in this encounter Additional Source Comments The information contained in this document represents components of the legal health record. It is not the complete legal health record.[facility]
--- NOTE | 2025-01-03 14:50 | MHC.OFFVIS ---
Vital Signs 01/03/25 14:56 Height 5 ft 4.5 in Weight 100 lb BMI 16.9 BP 140/80 H Blood Pressure Location Rt brachial Position Sitting Respiration 16 Pulse 67 Pulse Source Pulse Oximeter Pulse Oximetry (%) 97 Oxygen Delivery Method Room Air Intake Visit Reasons: 1m Screen Printing Inspector Required: No Allergies From [facility] Allergy (Unknown, Uncoded 11/19/24 13:23) AGITATION HPI Comments Details: Oswaldo is a 79-year-old female patient with a past medical history of migraine and sensorineural hearing loss here today for a follow-up visit. She was here approximately 6 weeks ago for an initial evaluation of ?atypical migraine? referred by her ENT provider. According to the patient at the time of our initial visit: she has been having upper left facial and left temporal headaches for many years. Her pain occurs almost daily. Her pain is almost always present them does fluctuate with some periods of intense pain. When she does have intense pain, her pain will come on with him 5-6 minutes. The pain can reach 9/10 but gnerally is 6/10. She does at times take tylenol. The tylenol does not take the pain away but it takes the edge off. Her pain starts under her left eye and wraps up into the left temporal area. The pain is dull and aching but can throb. When the headache is present she feels that she has to squint her left eye but denies tearing. She does feel that she has left sided congestion and has L>R rhinnorha though this is not clearly linked to periods of headache. She also had 1 episode hearing loss to the left ear which lasted a couple of days but hearing returned back to baseline on its own. She denies any vision changes though does have some light sensitivity which she feels these are baseline. Headaches are often aggravated by loud noises. 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 She explained to me during our 2 week follow-up visit that upon initiation of the indomethacin, she had complete resolution of her headache the next day following her 1st initial dose of indomethacin 25 mg 3 times daily. She had some difficulty understanding the protocol and did continue to increase her dose. Furthermore, she did take a 24 hour vacation from the indomethacin during her trial and again developed a headache. Again, after resuming the indomethacin, she was completely headache-free. She had been taking the omeprazole daily and had been tolerating the indomethacin well without any upset stomach. She is here today for a 1 month follow-up visit. She tells me today that she has been taking the 25 mgs of indomethacin daily with her omeprazole and has continued to have excellent headache control. Over the course of the last month since our last visit, she has had a proximally 1 or 2 very mild breakthrough headaches. She is still extremely happy about her headache results. She does tell me that she saw another provider recently who placed her on fluoxetine and buspirone for her moods. Other related background information: Sleep:Reports chronic insomnia. Uses clonopin and marijuana Stressors:Variable but feels that her stress may be slightly above average Hydration:16oz water, juice and herbal tea Caffeine intake:None Alcohol intake:4 drinks per week Substance use:Marijuana use Tobacco use:None Last eye exam:Within the last 3 months Last dental visit:Within the last year. She denies any clenching, grinding, or signs of TMD History of head injury:None Past medication trials: Nortriptyline- No benefit Tylenol-Some benefit Fioricet- Prior workup: MRI mentioned in ENT notes but no copy of MRI report included with referral paperwork. [facility] Medical History (Updated 12/04/24 @ 14:05 by Skye Rothman CNP) Chronic rhinitis Sensorineural hearing loss Migraine Social History Alcohol intake: current Alcohol intake frequency: 0-2 drinks per day Alcohol type: hard liquor Patient Tobacco Use Status: Never used Tobacco Substance Use Type: Marijuana Review of Systems Const All systems reviewed & are unremarkable except as noted in HPI and below Physical Exam Const General: cooperative, healthy appearing, comfortable and no acute distress Nutritional Appearance: well nourished Orientation/consciousness: patient oriented x3 Limitations: no limitations HEENT Head: Yes normal to inspection and Yes normocephalic Eyes General: appearance normal, both eyes and all related structures Visual Nieto: normal visual nieto by confrontation Alignment and Position: alignment normal Periorbital: periorbital findings normal Eyelids: Yes eyelids normal Conjunctivae: conjunctivae normal Sclerae: sclerae normal Neuro General: patient oriented x3 Cranial nerves: Yes CN's II-XII intact bilaterally and Yes Facial sensation intact/muscles of mastication intact Cognition (Neuro): normal cognition Gait exam (Neuro): Normal gait present Motor exam (neuro): no tremor noted Sensory Exam: double simultaneous stimulation for sensation normal Romberg Test: Negative Pupils: Normal pupillary reactivity/response: bilateral Psych Appearance: grossly normal Mental Status: mental status grossly normal Speech and movement: Normal speech and movement present and Clear speech present Affect: normal affect Attitude: cooperative Thought process: Normal thought process present Thought content: Normal thought content present Insight: Good insight present (Psych) Judgement: Good judgement present (Psych) Assessment & Plan Assessment & Plan (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 We discussed options for continued management during our last visit. She has in the past tried gabapentin which gave her adverse effects and nortriptyline did help some but only marginally. At her last follow-up we decided to try indomethacin at very low dose (25mg daily) to see if we could accomplish pain freedom at that dose. She has been taking the 25 mg daily and has still been well controlled. She has not had any adverse effects to the indomethacin and has been taking it with the omeprazole. We will plan to continue the indomethacin at current dosing with the omeprazole. She was recently placed on fluoxetine and buspirone for her mood. There is an interaction with the fluoxetine which can cause an enhanced antiplatelet effect of the indomethacin and the indomethacin can reduce the efficacy of the fluoxetine. The patient tells me that the provider who prescribed the fluoxetine is aware of this but I will send my note to ensure that we both monitor. I am sending her for labs including a CBC and CMP to check her platelet levels and kidney function. We will plan to recheck this in 3 months. -continue indomethacin 25 mg daily -basic metabolic profile today and at time of next visit to review kidney function and platelet count -continue omeprazole for peptic ulcer disease prophylaxis -follow up in 3 months or sooner if needed Orders: Orders Comprehensive Met. Panel Today G44.51 - Hemicrania continua, R51.9 - Headache, unspecified Complete Blood Count Auto Diff Today G44.51 - Hemicrania continua, R51.9 - Headache, unspecified Coding Level of Care Code Est Pt Level 4 (08578) Diagnoses Hemicrania continua G44.51 Left-sided headache R51.9
[2025-01-03 14:56] VITALS: BP 140/80; PULSE 67; RESP 16; O2SAT 97; BMI 16.9
--- OUTSIDE RECORDS SUMMARY | 2025-01-03 19:35 | XMS_ITS | Clinical Summary ---
Author Organization [employer] Address [address] [facility] 7[address] [place] [address] Care Team Providers Care Research Scholar Name Role Phone Unavailable Primary Care Provider [...] Sex Female 2:53 PM EDT Gender Identity Not Listed 10/29/2023 2:55 PM EDT Sexual Orientation Don't know 10/29/2023 2: 55 PM EDT Plan of Treatment Health Maintenance Due Date Last Done Comments Depression Screening 1945 Lipid Panel 1945 SDOH Screening 1946 Alcohol/Substance Use Screening 1958 Tobacco Screening 1958 Hepatitis C Screening 01/05/1964 RSV Patients and Patients Aged 60 years or older (1 - 1-dose 75+ series) 2021 COVID-19 Vaccine ( season) 2024 06/01/2024, 10/29/2023, 12/19/2022, Additional history exists Influenza Vaccine (#1) 2024 , 11/25/2022, 11/08/2022, Additional history exists DTaP/Tdap/Td Vaccines (2 - Td or Tdap) 12/02/2029 12/03/2019, 05/27/2013, 04/26/2002 Zoster Vaccines Completed 03/22/2021, 09/11, 09/16/2011 Pneumococcal Vaccine: 50+ Years Completed 07/30/2022, 12/01/2015, 08/16/2011 HIB Vaccines Aged Out No longer eligi [...] patient's age to complete this topic Insurance [place] [employer] [place]PO
--- OUTSIDE RECORDS SUMMARY | 2025-01-03 19:36 | XMS_ITS | Encounter Summary ---
Author Organization [facility] Address [facility] [employer] [address] [address] Phone Care Team Providers Care Manager Access Name Role Phone Erwin Tran MD Primary Care Provider [phone] Kristyn Rossi MD Unavailable Codie Hercules NP Unavailable [phone] Karolyn Moody MD Unavailable [phone] Harry Reid MD Unavailable [phone] Kristyn Rossi MD Unavailable [phone] Skye Patiño MD Primary Care Provider + [phone] Patrick Lomeli MD Unavailable [phone] Skye Patiño MD Primary Care Provider + [phone] Neil Lazaro MD Unavailable [phone] Encounter Details Date Type Department Care Team (Late st Contact Info) Description 02/14/2021 Procedure Pass [address] [address] Social History Tobacco Use Types Packs/Day Years [...] Pulmonary, Allergy and Critical Care Medicine [address] [facility] [place] [address] Patrick Lomeli MD [address] [facility] 2nd [place] [address] [email or web address] 05/18/2025 1:00 PM EDT Blood Draw [facility] [address] [address] Kristyn Rossi MD [address] [place] [id number] 05/18/2025 2:00 PM EDT Office Visit [facility] at [address] [address] Kristyn Rossi MD [address] [place] [address] [email or web address] 05/18/2025 2:40 PM EDT Infusion [facility] at [address] [address] Kristyn Rossi MD [address] [place] [address] Danay Valentin, SUSY [address] [place] [address] documented as of this encounter Visit Diagnoses Not on filedocumented in this encounter Care Teams Manager Access Relationship Specialty Start Date End Date Erwin Tran MD PCP - General 11/25/16 08/27/22 Skye Patiño MD [address] [place] [address] [email or web address] PCP - General Family Medicine 08/28/22 12/02/23 Skye Patiño MD [address] [place] [address] PCP - General Family Medicine 12/03/23 Kristyn Rossi MD [address] [place] [address] [email or web address] Primary Oncologist Medical Oncology 10/11/20 08/08/21 Codie Hercules NP [address] [address] [email or web address] Nurse Practitioner Medical Oncology 11/09/20 04/08/24 Karolyn Moody MD [address] [place] [address] [email or web address] General Surgery 11/14/20 Harry Reid MD [address] [place] [address] [email or web address] Radiation Oncology 11/14/20 Kristyn Rossi MD [address] [place] [address] Primary Oncologist Medical Oncology 10/11/20 Patrick Lomeli MD [address] [place] [address] Intensive Care 09/29/23 Neil Lazaro MD [address] [place] [address] [place] [address] Urology 10/12/24 documented as of this encounter Additional Source Comments The information contained in this document represents components of the legal health record. It is not the complete legal health record.[facility]
--- OUTSIDE RECORDS SUMMARY | 2025-01-03 19:36 | XMS_ITS | Data Portability ---
Author Organization [place] [facility] All[facility] Address [address] [facility] [address] [place] [address] Care Team Providers Care Lever Operator Name Role Phone DES AVANI Primary Care Provider [phone] Assessment Encounter Date Assessment Date Assessment LastModified [...] up extensively with sinus imaging, evaluation with medical office receptionist assistant, allergy testing showing multiple sensitivities. On exam, there is exudate at the left anterior septum which per her report is chronic. I recommended a water-based lubricant to this area. [email or web address] Not available 02/25/2024 09:26:15 Plan of Treatment Reminders Order Date Submit Date Provider Last Modified By Organization Details Last Modified Time Details Appointments None recorded. Lab None recorded. Referral neurologist referral - ADDRESS: [address] [place] [address] [address]LO[address] [place] [address] PLEASE CALL THEIR OFFICE IF YOU CAN'T MAKE IT TO THIS APPOINTMENT 2024 025 j luis Comer MD, [address] [place] [address] , [facility] [address], [place], [address], 5 14:04:53 Procedures None recorded. Surgeries None recorded. Imaging None recorded. Medication Orders nortriptyli ne 10 mg capsule 2024 025 [id number], [address] [place], [address], 14:31:41 Patient TargetsNo targets recorded. Patient InstructionsNo instructions recorded. Reason for Referral Neurologist Referral for Abel blake ADDRESS: [address] [place] [address] [address] [place] [id number] CALL THEIR OFFICE IF YOU CAN'T MAKE [...] contr ast No observ ation record ed. [address], [address], 03/23/2024 16:52:44 Result Notes None recorded. Problems Name Problem SNOMED Code Status Onset Date Resolution Date Notes Provider Name and Address Organization Details Recorded Time Sensorine ural hearing loss of bilateral ears 275398662 Active 2015 Sensorine ural hearing loss, bilateral ; Note: Date Diagnosed : 12/12/2015 4:24 PM (H90.3) Not Available [facility] 4 03:15:22 Migraine without aura, not refractor y 491849549 Active 2015 Migraine without aura, not intractab le, without status migrainos us; Note: Date Diagnosed : 12/12/2015 4:56 PM (G43.009) Not Available [facility] 4 03:15:22 Tinnitus of left ear 63880697463 06 Active 2015 Tinnitus, left ear; Note: Changed from H93.A2 to H93.12 ( 6 8:40 AM) , Date Diagnosed : 12/12/2015 4:24 PM (H93.A2) Not Available [facility] 4 03:15:22 Abdominal migraine 33983931 Active 2015 Abdominal migraine, not intractab le; Note: Date Diagnosed : 12/12/2015 4:56 PM (G43.D0) Not Available [facility] 4 03:15:23 Headache 50365101 Active 2016 Facial pain NOS; Note: Date Diagnosed : 03/05/2016 9:40 AM (R51) Not Available [facility] 4 03:15:22 Chronic rhinitis 79042318 Active 2016 Chronic rhinitis; Note: Date Diagnosed : 03/05/2016 9:41 AM (J31.0) Not Available [facility] 4 03:15:23 Ulcerativ e rhinitis 71356019 Active 2024 ESSENCE EDEN MD [address] [place] [address],[place] [address], [place], [address] , [facility] 5 09:22:29 Migraine 52289388 Active 2024 ESSENCE EDEN MD [address] [place] [address],[place] [address], [place], [address] , [facility] 5 14:10:17 Problem Notes None recorded. Procedures Surgical History Date Name Laterality Status Provider Name and Address Organization Details Recorded Time 02/13/2024 Comp Audio with Tymps - 61963 & 06379 completed IVORY TAYLOR MA, CCC-A [address] [place] [address],[place] [address], [place], [address], [facility] 02/13/2024 11:24:44 Imaging Results None recorded. Procedure Notes None recorded. Medical Equipment None Reported. Allergies Allergen ID Allergen Name Allergen Category Reaction Reaction Severity Criticality Documentation Date Start Date Code Code System Note Provider Name and Address Organization Details Recorded Time 368690 metoclopr amide hydrochlo ride medicatio n other Not available Not available 06/24/2023 43068 6 RxNorm React ion: unkno wn, unspe cifie d;; Not Available [facility] 4 01:27:05 Medications Name Sig Start Date [...] mg tablet 02/12 completed Medicati on ID: [id number] D uration Value: 30 Brand Name: medroxyp [...] mg tablet 02/12 completed Medicati on ID: [id number] D uration Value: 30 Brand Name: amitript [...] elayed release 03/25 completed Medicati on ID: [id number] D uration Value: 90 Brand Name: omeprazo [...] Updated DateTime 03/25/2024 163.83 cm 17.4 kg/m2 42079.01 g Sophie Hogan MA [facility] 03/25/2024 13:50:22 Date Recorded Body height Body mass index (BMI) Body weight Provider Name and Address Organization Details Last Updated DateTime 06/22/2024 163.83 cm 17.6 kg/m2 06129.61 g Sophie Hogan MA [facility] 06/22/2024 13:53:45 Social History None recorded. [...] ICD10 Code Diagnosis IMO Codes Diagnosis Note [id number] ESSENCE EDEN MD [facility] of [address] [address] 02/13/2024 10:47:13 02/13/2024 11:58:45 Sensorineural hearing loss of bilateral ears [id number] H90.3 Audiologic al evaluation results: Right ear: Normal hearing thru 1000Hz sloping to a mild to moderate SNHL with excellent word recognitio n. Left ear: Normal hearing thru 500Hz sloping to a mild to moderate SNHL with excellent word recognitio n. Tympanomet ry: Right Ear:Type A Left Ear:Type A Ulcerative rhinitis 3666 9007 J34.81 [id number] ESSENCE EDEN MD [facility] on [address] [place] [address], [place] [address] 03/25/2024 13:44:53 03/25/2024 14:33:10 Migraine without aura, not refractory 501879404 G43.009 We reviewed her MRI which showed [...] recommende d a trial of nortriptyl ine. [id number] ESSENCE EDEN MD [facility] on [address] [place] [address] 06/22/2024 13:48:17 06/22/2024 14:13:28 Migraine 96298210 G43.009 [id number] She reports no change in hearing since [...] Key Member ID Guarantor Name 06/22/2024 1 [facility] ([place]ICARE [place]PLACEMENT PPO) [id number] Oswaldo Flores [id number] Oswaldo Flores Notes Date Note Type [...] sinus films which looked fine Saw a medical office receptionist assistant in [place], did a nasal swab , staph coag [...] had been prescribed [facility]ENCE EDEN MD [facility] [place],[address], [address], [place] [facility] [place] 02/25/2024 09:26:27 5 text/html 79 yo F present for follow up hearing came back almost immediatelyprednisone helped with the facial pain, headaches are backMRI showed SSCD, no third window symptoms Previously on gabapentin ESSENCE EDEN MD [address] [facility],[place] [address], [place], [address], [facility] - [facility] [place] 03/26/2024 22:06:21 5 text/html ROS as noted in the HPI Hearing has been fineNo improvement with nortriptyline Saw neurologist years ago for chronic left facial pain which has been worked up extensively with sinus imaging, evaluation with medical office receptionist assistant, allergy testing showing multiple sensitivities. MRI reviewed at her last visit unremarkable, with finding of apparent SSCD, clear sinuses on review of imaging, but without symptoms of third window phenomenon. ESSENCE EDEN MD [address] [facility] [place] [address], [place], [address], [facility] - [facility] [place] 06/22/2024 14:49:03 OBGyn Episode No OBEpisode recorded.
--- OUTSIDE RECORDS SUMMARY | 2025-01-03 19:36 | XMS_ITS | Encounter Summary ---
Author Organization [facility] Address [address] [address] Phone Care Team Providers Care Racebook Writer Name Role Phone Erwin Tran MD Primary Care Provider [phone] Kristyn Rossi MD Unavailable [phone] Codie Hercules HOG BUYER Unavailable [phone] Karolyn Moody MD Unavailable +[phone] Harry Reid MD Unavailable [phone] Kristyn Rossi MD Unavailable Skye Patiño MD Primary Care Provider + [phone] Patrick Lomeli MD Unavailable [phone] Skye Patiño MD Primary Care Provider + [phone] Neil Lazaro MD Unavailable Reason for Referral * MRI/CAT Scan - Closed Specialty Diagnoses / Procedures Referred By Contac t Referred To Contact Radiology Diagnoses Episodic paroxysmal hemicrania, not intractable Procedures CT Head Erwin Tran MD Phone: tel: fax: mailto: Referral ID Status Reason Start Date Expiration Date Visits Re quested Visits Authorized [id number] Closed 06/18/2017 08/16/2017 1 1 Encounter Details Date Type Department Care Team (Late st Contact Info) Description 06/19/2017 Ancillary Orders Virtual Department [address] [place] [address] Erwin Tran MD 70 [place] [address] [email or web address] Episodic paroxysmal hemicrania, not intractable Social History [...] Department Care Team (Late Contact Info) Description 01/25/2025 8:30 AM EST Office Visit [facility] Pulmonary, Allergy and Critical Care Medicine 10 [place] [address] Patrick Lomeli MD [address] [address] [email or web address] 05/18/2025 1:00 PM EDT Blood Draw [facility] Phleb [address] [address] Kristyn Rossi MD [address] [place] [address] [email or web address] 05/18/2025 2:00 PM EDT Office Visit [facility] at [address] [address] Kristyn Rossi MD [address] [place] [address] 05/18/2025 2:40 PM EDT Infusion 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, not intractable documented in this encounter Care Teams Racebook Writer Relationship Specialty Start Date End Date Erwin Tran MD [email or web address] PCP - General 11/25/16 08/27/22 Skye Patiño MD [address] [place] [address] PCP - General Family Medicine 08/28/22 12/02/23 Skye Patiño MD [address] [place] [address] PCP - General Family Medicine 12/03/23 Kristyn Rossi MD [address] [place] [address] Primary Oncologist Medical Oncology 10/11/20 08/08/21 Coide Hercules NP [address] [place] [address] [email or web address] Nurse Practitioner Medical Oncology 11/09/20 04/08/24 Karolyn Moody MD [address] [place] [address] General Surgery 11/14/20 Harry Reid MD [address] [place] [address] [email or web address] Radiation Oncology 11/14/20 Kristyn Rossi MD [address] [place] [address] Primary Oncologist Medical Oncology 10/11/20 Patrick Lomeli MD [address] [place] [address] [email or web address] Intensive Care 09/29/23 Neil Lazaro MD [address] [place] [address] [place] [address] Urology 10/12/24 documented as of this encounter Additional Source Comments The information contained in this document represents components of the legal health record. It is not the complete legal health record.[facility]
--- OUTSIDE RECORDS SUMMARY | 2025-01-03 19:36 | XMS_ITS | Encounter Summary ---
Author Organization [facility] Address [address] [place] [address] Phone Care Team Providers Care Document Manager Name Role Phone Erwin Tran MD Primary Care Provider [phone] Kristyn Rossi MD Unavailable Codie Hercules SECURITY INCIDENT HANDLER Unavailable [phone] Karolyn Moody MD Unavailable [phone] Harry Reid MD Unavailable [phone] Kristyn Rossi MD Unavailable Skye Patiño MD Primary Care Provider + [phone] Patrick Lomeli MD Unavailable + [phone] Skye Patiño MD Primary Care Provider + [phone] Neil Lazaro MD Unavailable [phone] Encounter Details Date Type Department Care Team (Late st Contact Info) Description 09/27/2020 Ancillary Orders [facility],Outside Imaging [address] [place] [address] System, Provider Not In, PhD [address] [address] Social History Tobacco Use Types Packs/Day Years [...] Description 01/25/2025 8:30 AM EST Office Visit [facility] Pulmonary, Allergy and Critical Care Medicine [address] [place] [address] [place] [address] Patrick Lomeli MD 10 [facility] 2nd [place] [address] [email or web address] 05/18/2025 1:00 PM EDT Blood Draw [facility] Phleb [address] [address] Kristyn Rossi MD [address] [place] [address] 05/18/2025 2:00 PM EDT Office Visit [facility] at [address] [address] Kristyn Rossi MD [address] [place] [email or web address] 05/18/2025 2:40 PM EDT Infusion [facility] at [address] [address] Kristyn Rossi MD [address] [place] [address] Danay Valentin RN [address] [place] [address] documented as of this encounter Results * [...] on filedocumented in this encounter Care Teams Document Manager Relationship Specialty Start Date End Date Erwin Tran MD PCP - General 11/25/16 08/27/22 Skye Patiño MD 30 [place] [address] [email or web address] PCP - General Family Medicine 08/28/22 12/02/23 Skye Patiño MD [address] [place] [address] PCP - General Family Medicine 12/03/23 Kristyn Rossi MD [address] [place] [address] [email or web address] Primary Oncologist Medical Oncology 10/11/20 08/08/21 Codie Hercules NP [address] [place] [address] Nurse Practitioner Medical Oncology 11/09/20 04/08/24 Karolyn Moody MD [address] [place] [address], [address] [place] [address] General Surgery 11/14/20 Harry Reid MD [address] [place] [address] [email or web address] Radiation Oncology 11/14/20 Kristyn Rossi MD 30 [place] [address] Primary Oncologist Medical Oncology 10/11/20 Patrick Lomeli MD [address] [place] [address] [email or web address] Intensive Care 09/29/23 Neil Lazaro MD [address] [place] [address] [place] [address] Urology 10/12/24 documented as of this encounter Additional Source Comments The information contained in this document represents components of the legal health record. It is not the complete legal health record.[facility]
--- OUTSIDE RECORDS SUMMARY | 2025-01-03 19:36 | XMS_ITS | Encounter Summary ---
Author Organization [facility] Address [address] [address] Phone Care Team Providers Care Insulation Packer Name Role Phone Erwin Tran MD Primary Care Provider [phone] Kristyn Rossi MD Unavailable [phone] Codie Hercules NP Unavailable [phone] Karolyn Moody MD Unavailable [phone] Harry Reid MD Unavailable Kristyn Rossi MD Unavailable Skye Patiño MD Primary Care Provider Patrick Lomeli MD Unavailable [phone] Skye Patiño MD Primary Care Provider + [phone] Neil Lazaro MD Unavailable Reason for Referral * Outpatient Procedure - Closed Specialty Diagnoses / Procedures Referred By Contbarrett t Referred To Contact Radiology Diagnoses Breast mass, right Procedures Mammogram Diagnostic Post Procedure (Right) Erwin Tran MD Phone: tel: fax: mailto: Referral ID Status Reason Start Date Expiration Date Visits Re quested Visits Authorized [id number] Closed 10/05/2020 10/05/2021 1 1 Encounter Details Date Type Department Care Team (Late st Contact Info) Description 10/05/2020 Ancillary Orders Virtual Department [address] [place] [address] Erwin Tran MD 70 [place] [address] [email or web address] Breast mass, right Social History Tobacco Use [...] Pulmonary, Allergy and Critical Care Medicine 10 [place] [address] Patrick Lomeli MD [address] [place] [address] [email or web address] 05/18/2025 1:00 PM EDT Blood Draw [facility] Phleb [address] [address] Kristyn Rossi MD [address] [place] [address] 05/18/2025 2:00 PM EDT Office Visit [facility] at [address] [address] Kristyn Rossi MD [address] [place] [address] 05/18/2025 2:40 PM EDT Infusion [facility] at [address] [address] Kristyn Rossi MD [address] [place] [address] Danay Valentin, RN [address] [place] [address] [email or web address] documented as of this encounter Results * [...] breast documented in this encounter Care Teams Insulation Packer Relationship Specialty Start Date End Date Erwin Tran MD [email or web address] PCP - General 11/25/16 08/27/22 Skye Patiño MD 30 [place] [address] [email or web address] PCP - General Family Medicine 08/28/22 12/02/23 Skye Patiño MD [address] [place] [address] [email or web address] PCP - General Family Medicine 12/03/23 Kristyn Rossi MD [address] [place] [address] [email or web address] Primary Oncologist Medical Oncology 10/11/20 08/08/21 Codie Hercules NP [address] [place] [address] [email or web address] Nurse Practitioner Medical Oncology 11/09/20 04/08/24 Karolyn Moody MD [address] [place] [address], [address] [place] [address] General Surgery 11/14/20 Harry Reid MD 30 [place] [address] [email or web address] Radiation Oncology 11/14/20 Kristyn Rossi MD 30 [place] [address] Primary Oncologist Medical Oncology 10/11/20 Patrick Lomeli MD [address] [place] [address] [email or web address] Intensive Care 09/29/23 Neil Lazaro MD [address] [place] [address] [place] [address] Urology 10/12/24 documented as of this encounter Additional Source Comments The information contained in this document represents components of the legal health record. It is not the complete legal health record.[facility]
--- OUTSIDE RECORDS SUMMARY | 2025-01-03 19:36 | XMS_ITS | Encounter Summary ---
Author Organization [facility] Address [address] [employer] [address] [address] Phone Care Team Providers Care Fire Safety Director Name Role Phone Codie Hercules NP Unavailable [phone] Karolyn Moody MD Unavailable [phone] Harry Reid MD Unavailable [phone] Kristyn Rossi MD Unavailable [phone] Skye Patiño MD Primary Care Provider Patrick Lomeli MD Unavailable [phone] Skye Patiño MD Primary Care Provider Neil Lazaro MD Unavailable Encounter Details Date Type Department Care Team (Late st Contact Info) Description 02/25/2023 Procedure Pass [facility], [address] [address] Social History Tobacco Use Types Packs/Day Years [...] Pulmonary, Allergy and Critical Care Medicine 10 [facility] [place] [address] Patrick Lomeli MD 10 [facility] 2nd [place] [address] [email or web address] 05/18/2025 1:00 PM EDT Blood Draw [facility] Phleb [address] [address] Kristyn Rossi MD [address] [place] [address] 05/18/2025 2:00 PM EDT Office Visit [facility] at [address] [address] Kristyn Rossi MD [address] [place] [address] 05/18/2025 2:40 PM EDT Infusion [facility] at [address] [address] Kristyn Rossi MD [address] [place] [address] Danay Valentin, SUSY [address] [place] [address] documented as of this encounter Visit Diagnoses Not on filedocumented in this encounter Care Teams Fire Safety Director Relationship Specialty Start Date End Date Skye Patiño MD 30 [place] [address] [email or web address] PCP - General Family Medicine 08/28/22 12/02/23 Skye Patiño MD [address] [place] [address] [email or web address] PCP - General Family Medicine 12/03/23 Codie Hercules NP [address] [place] [address] [email or web address] Nurse Practitioner Medical Oncology 11/09/20 04/08/24 Karolyn Moody MD [address] [place] [address] [email or web address] General Surgery 11/14/20 Harry Reid MD [address] [place] [address] [email or web address] Radiation Oncology 11/14/20 Kristyn Rossi MD [address] [place] [address] [email or web address] Primary Oncologist Medical Oncology 10/11/20 Patrick Lomeli MD [address] [place] [address] [email or web address] Intensive Care 09/29/23 Neil Lazaro MD [address] [place] [address] [place] [address] Urology 10/12/24 documented as of this encounter Additional Source Comments The information contained in this document represents components of the legal health record. It is not the complete legal health record.[facility]
--- OUTSIDE RECORDS SUMMARY | 2025-01-03 19:36 | XMS_ITS | Encounter Summary ---
Author Organization [facility] Address [address] [employer] [address] [address] Phone Care Team Providers Care Lining Presser Name Role Phone Codie Hercules NP Unavailable [phone] Karolyn Moody MD Unavailable Harry Reid MD Unavailable [phone] Kristyn Rossi MD Unavailable Skye Patiño MD Primary Care Provider [phone] Patrick Lomeli MD Unavailable [phone] Skye Patiño MD Primary Care Provider [phone] Neil Lazaro MD Unavailable [phone] Encounter Details Date Type Department Care Team (Late st Contact Info) Description 04/30/2023 Prep for Surgery [facility] Orthopedics & Sports Medicine [address] [place] [address] Diana Godinez MD [address] [place] [address] Orthopedics & Sports Medicine, [facility] [place], [place] [id number] Social History Tobacco Use Types Packs/Day Years [...] [facility] Pulmonary, Allergy and Critical Care Medicine [address] [place] [address] Patrick Lomeli MD [address] [place] [address] [email or web address] 05/18/2025 1:00 PM EDT Blood Draw [facility] Phleb [address] [address] Kristyn Rossi MD [address] [place] [email or web address] 05/18/2025 2:00 PM EDT Office Visit [facility] at [address] [address] Kristyn Rossi MD [address] [place] [address] 05/18/2025 2:40 PM EDT Infusion [facility] at [address] [address] Kristyn Rossi MD [address] [place] [address] [email or web address] Danay Valentin, SUSY 30 [place] [address] documented as of this encounter Visit Diagnoses Not on filedocumented in this encounter Care Teams Lining Presser Relationship Specialty Start Date End Date Skye Patiño MD 30 [place] [address] [email or web address] PCP - General Family Medicine 08/28/22 12/02/23 Skye Patiño MD [address] [place] [address] PCP - General Family Medicine 12/03/23 Codie Hercules NP [address] [place] [address] [email or web address] Nurse Practitioner Medical Oncology 11/09/20 04/08/24 Karolyn Moody MD [address] [place] [address] General Surgery 11/14/20 Harry Reid MD [address] [place] [address] [email or web address] Radiation Oncology 11/14/20 Kristyn Rossi MD [address] [place] [address] [email or web address] Primary Oncologist Medical Oncology 10/11/20 Patrick Lomeli MD [address] [place] [address] Intensive Care 09/29/23 Neil Lazaro MD [address] [place] [address] [place] [address] Urology 10/12/24 documented as of this encounter Additional Source Comments The information contained in this document represents components of the legal health record. It is not the complete legal health record.[facility]
--- OUTSIDE RECORDS SUMMARY | 2025-01-03 19:36 | XMS_ITS | Encounter Summary ---
Author Organization [facility] Address [address] [place] [address] Phone Care Team Providers Care Architecture Analyst Name Role Phone Erwin Tran MD Primary Care Provider [phone] Kristyn Rossi MD Unavailable [phone] Codie Hercules MANAGER OF TRAINING AND DEVELOPMENT Unavailable [phone] Karolyn Moody MD Unavailable [phone] Harry Reid MD Unavailable [phone] Kristyn Rossi MD Unavailable Skye Patiño MD Primary Care Provider + [phone] Patrick Lomeli MD Unavailable [phone] Skye Patiño MD Primary Care Provider + [phone] Neil Lazaro MD Unavailable Encounter Details Date Type Department Care Team (Late st Contact Info) Description 10/28/2019 Procedure Pass [facility], Ct Scan - [address] [address] Social History Tobacco Use Types Packs/Day Years [...] [facility] Pulmonary, Allergy and Critical Care Medicine [address] [place] [address] [place] [address] Patrick Lomeli MD 10 [facility] 2nd [place] [address] [email or web address] 05/18/2025 1:00 PM EDT Blood Draw [facility] Phleb [address] [address] Kristyn Rossi MD [address] [place] [address] 05/18/2025 2:00 PM EDT Office Visit [facility] at [address] [address] Kristyn Rossi MD [address] [place] [address] [email or web address] 05/18/2025 2:40 PM EDT Infusion [facility] at [address] [address] Kristyn Rossi MD [address] [place] [address] Danay Valentin RN [address] [place] [address] documented as of this encounter Visit Diagnoses Not on filedocumented in this encounter Care Teams Architecture Analyst Relationship Specialty Start Date End Date Erwin Tran MD PCP - General 11/25/16 08/27/22 Skye Patiño MD [address] [place] [address] [email or web address] PCP - General Family Medicine 08/28/22 12/02/23 Skye Patiño MD [address] [place] [address] [email or web address] PCP - General Family Medicine 12/03/23 Kristyn Rossi MD [address] [place] [address] [email or web address] Primary Oncologist Medical Oncology 10/11/20 08/08/21 Codie Hercules NP [address], [place] [address] [email or web address] Nurse Practitioner Medical Oncology 11/09/20 04/08/24 Karolyn Moody MD [address] [place] [address] [email or web address] General Surgery 11/14/20 Harry Reid MD [address] [place] [address] [email or web address] Radiation Oncology 11/14/20 Kristyn Rossi MD [address] [place] [address] [email or web address] Primary Oncologist Medical Oncology 10/11/20 Patrick Lomeli MD [address] [place] [address] [email or web address] Intensive Care 09/29/23 Neil Lazaro MD [address] [place] [address] Dr Adam, GISELLA [address] Urology 10/12/24 documented as of this encounter Additional Source Comments The information contained in this document represents components of the legal health record. It is not the complete legal health record.[facility]
--- OUTSIDE RECORDS SUMMARY | 2025-01-03 19:36 | XMS_ITS | Encounter Summary ---
Author Organization [facility] Address [address] [place] [address] Phone Care Team Providers Care Meat Cutter Name Role Phone Erwin Tran MD Primary Care Provider [phone] Kristyn Rossi MD Unavailable Codie Hercules SCIENTIST ELECTRONICS Unavailable [phone] Karolyn Moody MD Unavailable [phone] Harry Reid MD Unavailable [phone] Kristyn Rossi MD Unavailable Skye Patiño MD Primary Care Provider + [phone] Patrick Lomeli MD Unavailable [phone] Skye Patiño MD Primary Care Provider + [phone] Neil Lazaro MD Unavailable Encounter Details Date Type Department Care Team (Late st Contact Info) Description 06/19/2017 Procedure Pass [facility], Ct Scan - [address] [address] Social History Tobacco Use Types Packs/Day Years [...] [facility] Pulmonary, Allergy and Critical Care Medicine [address] [place] [address] [place] [address] Patrick Lomeli MD 10 [facility] 2nd [place] [address] [email or web address] 05/18/2025 1:00 PM EDT Blood Draw [facility] Phleb [address] [address] Kristyn Rossi MD [address] [place] [address] 05/18/2025 2:00 PM EDT Office Visit [facility] at [address] [address] Kristyn Rossi MD [address] [place] [address] 05/18/2025 2:40 PM EDT Infusion [facility] at [address] [address] Kristyn Rossi MD [address] [place] [address] Danay Valentin RN [address] [place] [address] documented as of this encounter Visit Diagnoses Not on filedocumented in this encounter Care Teams Meat Cutter Relationship Specialty Start Date End Date Erwin Tran MD PCP - General 11/25/16 08/27/22 Skye Patiño MD [address] [place] [address] [email or web address] PCP - General Family Medicine 08/28/22 12/02/23 Skye Patiño MD [address] [place] [address] [email or web address] PCP - General Family Medicine 12/03/23 Kristyn Rossi MD [address] [place] [address] @[email or web address] Primary Oncologist Medical Oncology 10/11/20 08/08/21 Coide Hercules NP [address] [address] [email or web address] Nurse Practitioner Medical Oncology 11/09/20 04/08/24 Karolyn Moody MD [address] [place] [address] [email or web address] General Surgery 11/14/20 Harry Reid MD [address] [place] [address] [email or web address] Radiation Oncology 11/14/20 Kristyn Rossi MD [address] [place] [address] [email or web address] Primary Oncologist Medical Oncology 10/11/20 Patrick Lomeli MD [address] [place] [address] [email or web address] Intensive Care 09/29/23 Neil Lazaro MD [address] [place] [address] Dr Adma, GISELLA [address] Urology 10/12/24 documented as of this encounter Additional Source Comments The information contained in this document represents components of the legal health record. It is not the complete legal health record.[facility]
--- OUTSIDE RECORDS SUMMARY | 2025-01-03 19:36 | XMS_ITS | Encounter Summary ---
Author Organization [facility] Address [address] [address] Phone Care Team Providers Care Family Support Coordinator Name Role Phone Erwin Tran MD Primary Care Provider [phone] Kristyn Rossi MD Unavailable [phone] Codie Hercules GAS PROVER Unavailable [phone] Karolyn Moody MD Unavailable [phone] Harry Reid MD Unavailable [phone] Kristyn Rossi MD Unavailable Skye Patiño MD Primary Care Provider + [phone] Patrick Lomeli MD Unavailable [phone] Skye Patiño MD Primary Care Provider + [phone] Neil Lazaro MD Unavailable [phone] Reason for Referral * Consultation (Elective) - Closed Specialty Diagnoses / Procedures Referred By Contac t Referred To Contact Pulmonary Disease Diagnoses Bronchiectasis without complication Erwin Tran MD Phone: tel: fax: mailto:[email or web address] [address] [address] Phone: tel: Referral ID Status Reason Start Date Expiration Date Visits Re quested Visits Authorized [id number] Closed 06/14/2020 06/14/2021 1 1 Encounter Details Date Type Department Care Team (Latest Contact Info) Description 06/14/2020 Transcribe [facility] [address] [place] [address] 3rd Floor, [address] [place] [address] Kana Ramos MD [address] [facility], [address] [place] [address] [email or web address] Bronchiectasis without complication (Primary Dx) [...] Pulmonary, Allergy and Critical Care Medicine 10 [place] [address] Patrick Lomeli MD [address] [place] [address] 2nd [place] [address] [email or web address] 05/18/2025 1:00 PM EDT Blood Draw [facility] Phleb [address] [address] Kristyn Rossi MD [address] [place] [address] 05/18/2025 2:00 PM EDT Office Visit [facility] at [address] [address] Kristyn Rossi MD [address] [place] [address] 05/18/2025 2:40 PM EDT Infusion [facility] at [address] [address] Kristyn Rossi MD 30 [place] [address] [email or web address] Danay Valentin, SUSY 30 [place] [address] [email or web address] Scheduled Referrals Name Type Priority Associated Diagnoses Orde r Schedule Ambulatory referral to [facility] Pulmonology Outpatient Referral Routine Bronchiectasis without complication Ordered: 06/14/2020 documented as of this encounter Visit Diagnoses Diagnosis Bronchiectasis without complication- Primary documented in this encounter Care Teams Family Support Coordinator Relationship Specialty Start Date End Date Erwin Tran MD [email or web address] PCP - General 11/25/16 08/27/22 Skye Patiño MD [address] [place] [address] [email or web address] PCP - General Family Medicine 08/28/22 12/02/23 Skye Patiño MD [address] [place] [address] [email or web address] PCP - General Family Medicine 12/03/23 Kristyn Rossi MD [address] [place] [address] [email or web address] Primary Oncologist Medical Oncology 10/11/20 08/08/21 Codie Hercules GAS PROVER [address] [place] [address] [email or web address] Nurse Practitioner Medical Oncology 11/09/20 04/08/24 Karolyn Moody MD [address] [place] [address] [email or web address] General Surgery 11/14/20 Harry Reid MD [address] [place] [address] [email or web address] Radiation Oncology 11/14/20 Kristyn Rossi MD [address] [place] [address] Primary Oncologist Medical Oncology 10/11/20 Patrick Lomeli MD [address] [place] [address] [email or web address] Intensive Care 09/29/23 Neil Lazaro MD [address] [place] [address] [place] [address] Urology 10/12/24 documented as of this encounter Additional Source Comments The information contained in this document represents components of the legal health record. It is not the complete legal health record.[facility]
--- OUTSIDE RECORDS SUMMARY | 2025-01-03 19:36 | XMS_ITS | Encounter Summary ---
Author Organization [facility] Address [address] [address] Phone Care Team Providers Care Inventory Auditor Name Role Phone Karolyn Moody MD Unavailable Harry Reid MD Unavailable Kristyn Rossi MD Unavailable [phone] Patrick Lomeli MD Unavailable Skye Patiño MD Primary Care Provider [phone] Neil Lazaro MD Unavailable [phone] Encounter Details Date Type Department Care Team (Late st Contact Info) Description 10/27/2024 Procedure Pass [facility], Ct Scan - [address] [address] Social History Tobacco Use Types Packs/Day Years [...] CD Pulmonary, Allergy and Critical Care Medicine [address] [place] [address] Patrick Lomeli MD [address] [place] [address] [email or web address] 05/18/2025 1:00 PM EDT Blood Draw [facility] Phleb [address] [address] Kristyn Rossi MD [address] [place] [address] 05/18/2025 2:00 PM EDT Office Visit [facility] at [address] [address] Kristyn Rossi MD [address] [place] [address] 05/18/2025 2:40 PM EDT [facility] at [address] [address] Kristyn Rossi MD [address] [place] [address] Danay Valentin, RN 30 [place] [address] documented as of this encounter Visit Diagnoses Not on filedocumented in this encounter Care Teams Inventory Auditor Relationship Specialty Start Date End Date Skye Patiño MD 70 [place] [address] PCP - General Family Medicine 12/03/23 Karolyn Moody MD [address] [place] [address] General Surgery 11/14/20 Harry Reid MD [address] [place] [address] [email or web address] Radiation Oncology 11/14/20 Kristyn Rossi MD [address] [place] [address] [email or web address] Primary Oncologist Medical Oncology 10/11/20 Patrick Lomeli MD [address] [place] [address] [email or web address] Intensive Care 09/29/23 Neil Lazaro MD [address] [place] [address] [place] [address] Urology 10/12/24 documented as of this encounter Additional Source Comments The information contained in this document represents components of the legal health record. It is not the complete legal health record.[facility]
--- OUTSIDE RECORDS SUMMARY | 2025-01-03 19:36 | XMS_ITS | Encounter Summary ---
Author Organization [facility] Address [address] [place] [address] Phone Care Team Providers Care Show Horse Driver Name Role Phone Erwin Tran MD Primary Care Provider [phone] Kristyn Rossi MD Unavailable [phone] Codie Hercules NP Unavailable [phone] Karolyn Moody MD Unavailable [phone] Harry Reid MD Unavailable [phone] Kristyn Rossi MD Unavailable Skye Patiño MD Primary Care Provider Patrick Lomeli MD Unavailable [phone] Skye Patiño MD Primary Care Provider + [phone] Neil Lazaro MD Unavailable Encounter Details Date Type Department Care Team (Latest Contact Info) Description 06/27/2017 Transcribe Orders [facility] Phleb [address] [address] Erwin Tran MD [address] [place] [phone] Stomach ache (Primary Dx) Social History Tobacco [...] Description 01/25/2025 8:30 AM EST Office Visit [facility] Pulmonary, Allergy and Critical Care Medicine [address] [place] [address] [place] [address] Patrick Lomeli MD 10 [facility] 2nd [place] [address] [email or web address] 05/18/2025 1:00 PM EDT Blood Draw [facility] Phleb [address] [address] Kristyn Rossi MD [address] [place] [address] 05/18/2025 2:00 PM EDT Office Visit [facility] at [address] [address] Kristyn Rossi MD [address] [place] [address] 05/18/2025 2:40 PM EDT Infusion [facility] at [address] [address] Kristyn Rossi MD [address] [place] [address] Danay Valentin, SUSY [address] [place] [address] documented as of this encounter Results * (ABNORMAL) Basic metabolic panel (06/27/2017 2:00 PM EDT) SODIUM 147(H) 133 - 146 mmol/L [facility] CHLORIDE 105 96 - 108 mmol/L [facility] POTASSIUM 4.0 3.3 - 5.1 mmol/L [facility] CO2 28 21 - 35 mmol/L [facility] BUN 15 6 - 19 mg/dL [facility] CREATININE 0.70 0.5 - 1.5 mg/dL [facility] GLUCOSE 72 70 - 99 mg/dL [facility] CALCIUM 9.2 8.4 - 10.3 mg/dL [facility] EGFR 87 >59 mL/min/1.7 3m2 [facility] Comment:If patient is black, multiply result by 1.159. The eGFR calculation has changed from the MDRD equation to the CKD-EPI equation as of April 15, 2017. ANION GAP 18 10 - 20 mmol/L [facility] Blood 06/27/2017 2:00 PM EDT 06/27/2017 2:02 PM EDT us Erwin Tran MD LAB BLOOD BKR ORDERABLES Final R esult [facility] [address] [place] [address] documented in this encounter Visit Diagnoses Diagnosis Stomach ache- Primary Dyspepsia and other specified disorders of function of stomach documented in this encounter Care Teams Show Horse Driver Relationship Specialty Start Date End Date Erwin Tran MD [email or web address] PCP - General 11/25/16 08/27/22 Skye Patiño MD 30 [place] [address] PCP - General Family Medicine 08/28/22 12/02/23 Skye Patiño MD [address] [place] [address] [email or web address] PCP - General Family Medicine 12/03/23 Kristyn Rossi MD 30 [place] [address] Primary Oncologist Medical Oncology 10/11/20 08/08/21 Codie Hercules NP [address] [place] [address] [email or web address] Nurse Practitioner Medical Oncology 11/09/20 04/08/24 Karolyn Moody MD [address] [place] [address] General Surgery 11/14/20 Harry Reid MD [address] [place] [address] [email or web address] Radiation Oncology 11/14/20 Kristyn Rossi MD 30 [place] [address] Primary Oncologist Medical Oncology 10/11/20 Patrick Lomeli MD [address] [place] [address] [email or web address] Intensive Care 09/29/23 Neil Lazaro MD [address] [place] [address] [place] [address] Urology 10/12/24 documented as of this encounter Additional Source Comments The information contained in this document represents components of the legal health record. It is not the complete legal health record.[facility]
--- OUTSIDE RECORDS SUMMARY | 2025-01-03 19:36 | XMS_ITS | Encounter Summary ---
Author Organization [facility] Address [address] [address] Phone Care Team Providers Care Warp Bleaching Vat Tender Name Role Phone Erwin Tran MD Primary Care Provider [phone] Kristyn Rossi MD Unavailable [phone] Codie Hercules API PRODUCT MANAGER Unavailable Karolyn Moody MD Unavailable [phone] Harry Reid MD Unavailable [phone] Kristyn Rossi MD Unavailable Skye Patiño MD Primary Care Provider + [phone] Patrick Lomeli MD Unavailable [phone] Skye Patiño MD Primary Care Provider + [phone] Neil Lazaro MD Unavailable Reason for Referral * MRI/CAT Scan - Closed Specialty Diagnoses / Procedures Referred By Contac t Referred To Contact Radiology Diagnoses Episodic paroxysmal hemicrania, not intractable Procedures CT Orbits Erwin Tran MD Phone: tel: fax: mailto: Referral ID Status Reason Start Date Expiration Date Visits Re quested Visits Authorized [id number] Closed 06/30/2017 08/28/2017 1 1 Encounter Details Date Type Department Care Team (Late st Contact Info) Description 06/30/2017 Ancillary Orders Virtual Department [address] [place] [address] Erwin Tran MD 70 [place] [address] [email or web address] Episodic paroxysmal hemicrania, not [...] Pulmonary, Allergy and Critical Care Medicine 10 [place] [address] Patrick Lomeli MD [address] [address] [email or web address] 05/18/2025 1:00 PM EDT Blood Draw [facility] Phleb [address] [address] Kristyn Rossi MD [address] [place] [address] 05/18/2025 2:00 PM EDT Office Visit [facility] at [address] [address] Kristyn Rossi MD [address] [place] [address] 05/18/2025 2:40 PM EDT Infusion [facility] at [address] [address] Kristyn Rossi MD [address] [place] [address] [email or web address] Danay Valentin, SUSY 30 [place] [address] [email or web address] documented as of this encounter Results * CT FACE (ORBITS) WITH CONTRAST (06/30/2017 8:18 AM EDT) Anatomical Region Laterality Modality Face Computed Tomogra phy 06/30/2017 7:57 AM EDT Impressions 06/30/2017 9:42 AM EDT No findings to account for the patient's symptoms. No significant sinus disease. TOTAL CTDIvol: 81.3 mGy POS - [id number] Narrative 06/30/2017 9:42 AM EDT COMPARISON: MRI [...] sinusdisease. 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 PCP - General 11/25/16 08/27/22 Skye Patiño MD 30 [place] [address] [email or web address] PCP - General Family Medicine 08/28/22 12/02/23 Skye Patiño MD [address] [place] [address] [email or web address] PCP - General Family Medicine 12/03/23 Kristyn Rossi MD 30 [place] [address] [email or web address] Primary Oncologist Medical Oncology 10/11/20 08/08/21 Codie Hercules NP [address] [place] [address] [email or web address] Nurse Practitioner Medical Oncology 11/09/20 04/08/24 Karolyn Moody MD [address] [place] [address], [address] [place] [address] General Surgery 11/14/20 Harry Reid MD [address] [place] [address] [email or web address] Radiation Oncology 11/14/20 Kristyn Rossi MD [address] [place] [address] [email or web address] Primary Oncologist Medical Oncology 10/11/20 Patrick Lomeli MD [address] [place] [address] [email or web address] Intensive Care 09/29/23 Neil Lazaro MD [address] [place] [address] [place] [address] Urology 10/12/24 documented as of this encounter Additional Source Comments The information contained in this document represents components of the legal health record. It is not the complete legal health record.[facility]
--- OUTSIDE RECORDS SUMMARY | 2025-01-03 19:36 | XMS_ITS | Encounter Summary ---
Author Organization [facility] Address [address] [employer] [address] [address] Phone Care Team Providers Care Parts Expediter Name Role Phone Codie Hercules NP Unavailable [phone] Karolyn Moody MD Unavailable [phone] Harry Reid MD Unavailable [phone] Kristyn Rossi MD Unavailable [phone] Skye Patiño MD Primary Care Provider Patrick Lomeli MD Unavailable [phone] Skye Patiño MD Primary Care Provider + [phone] Neil Lazaro MD Unavailable Encounter Details Date Type Department Care Team (Late st Contact Info) Description 05/23/2023 Procedure Pass OR Admitting Dept - Virtual Department 30 [place] [address] Social History Tobacco Use Types Packs/Day Years [...] Pulmonary, Allergy and Critical Care Medicine 10 [facility] [place] [address] Patrick Lomeli MD 10 [facility] 2nd [place] [address] [email or web address] 05/18/2025 1:00 PM EDT Blood Draw [facility] Phleb [address] [address] Kristyn Rossi MD [address] [place] [address] 05/18/2025 2:00 PM EDT Office Visit [facility] at [address] [address] Kristyn Rossi MD [address] [place] [address] 05/18/2025 2:40 PM EDT Infusion [facility] at [address] [address] Kristyn Rossi MD [address] [place] [address] [email or web address] Danay Valentin, SUSY [address] [place] [address] documented as of this encounter Visit Diagnoses Not on filedocumented in this encounter Care Teams Parts Expediter Relationship Specialty Start Date End Date Skye Patiño MD 30 [place] [address] [email or web address] PCP - General Family Medicine 08/28/22 12/02/23 Skye Patiño MD 70 [place] [address] [email or web address] PCP - General Family Medicine 12/03/23 Codie Hercules NP [address] [place] [address] [email or web address] Nurse Practitioner Medical Oncology 11/09/20 04/08/24 Karolyn Moody MD [address] [place] [address] [email or web address] General Surgery 11/14/20 Harry Reid MD [address] [place] [address] [email or web address] Radiation Oncology 11/14/20 Kristyn Rossi MD [address] [place] [address] [email or web address] Primary Oncologist Medical Oncology 10/11/20 Patrick Lomeli MD [address] [place] [address] [email or web address] Intensive Care 09/29/23 Neil Lazaro MD [address] [place] [address] [place] [address] Urology 10/12/24 documented as of this encounter Additional Source Comments The information contained in this document represents components of the legal health record. It is not the complete legal health record.[facility]
--- OUTSIDE RECORDS SUMMARY | 2025-01-03 19:36 | XMS_ITS | Encounter Summary ---
Author Organization [facility] Address 399 [facility] [address] [place] [address] Phone Care Team Providers Care Air Drier Machine Operator Name Role Phone Cdoie Hercules NP Unavailable [phone] Karolyn Moody MD Unavailable Harry Reid MD Unavailable [phone] Kristyn Rossi MD Unavailable [phone] Patrick Lomeli MD Unavailable [phone] Skye Patiño MD Primary Care Provider [phone] Neil Lazaro MD Unavailable Encounter Details Date Type Department Care Team (Late st Contact Info) Description 02/12/2024 Procedure Pass [facility], [address] [address] Social History Tobacco Use Types Packs/Day Years [...] CD Pulmonary, Allergy and Critical Care Medicine [address] [place] [address] Patrick Lomeli MD [address] [place] [address] [email or web address] 05/18/2025 1:00 PM EDT Blood Draw [facility] Phleb [address] [address] Kristyn Rossi MD [address] [place] [address] [email or web address] 05/18/2025 2:00 PM EDT Office Visit [facility] at [address] [address] Kristyn Rossi MD [address] [place] [address] 05/18/2025 2:40 PM EDT Infusion [facility] at [address] [address] Kristyn Rossi MD [address] [place] [address] [email or web address] Danay Valentin, SUSY [address] [place] [address] [email or web address] documented as of this encounter Visit Diagnoses Not on filedocumented in this encounter Care Teams Air Drier Machine Operator Relationship Specialty Start Date End Date Skye Patiño MD [address] [place] [address] [email or web address] PCP - General Family Medicine 12/03/23 Codie Hercules NP [address] [place] [address] [email or web address] Nurse Practitioner Medical Oncology 11/09/20 04/08/24 Karolyn Moody MD [address] [place] [address] [email or web address] General Surgery 11/14/20 Harry Reid MD [address] [place] [address] [email or web address] Radiation Oncology 11/14/20 Kristyn Rossi MD [address] [place] [address] Primary Oncologist Medical Oncology 10/11/20 Patrick Lomeli MD [address] [place] [address] [email or web address] Intensive Care 09/29/23 Neil Lazaro MD [address] [place] [address] Dr Adam, [place] [address] Urology 10/12/24 documented as of this encounter Additional Source Comments The information contained in this document represents components of the legal health record. It is not the complete legal health record.[facility]
--- OUTSIDE RECORDS SUMMARY | 2025-01-03 19:36 | XMS_ITS | Encounter Summary ---
Author Organization [facility] Address [facility] [address] [address] Phone Care Team Providers Care Tobacco Wrapping Machine Tender Name Role Phone Erwin Tran MD Primary Care Provider [phone] Kristyn Rossi MD Unavailable [phone] Codie Hercules NP Unavailable [phone] Karolyn Moody MD Unavailable [phone] Harry Reid MD Unavailable [phone] Kristyn Rossi MD Unavailable [phone] Skye Patiño MD Primary Care Provider + [phone] Patrick Lomeli MD Unavailable +[phone] Skye Patiño MD Primary Care Provider + [phone] Neil Lazaro MD Unavailable [phone] Encounter Details Date Type Department Care Team (Late st Contact Info) Description 11/01/2020 Procedure Pass OR Admitting Dept - Virtual Department 30 [place] [address] Social History Tobacco Use Types Packs/Day Years [...] Pulmonary, Allergy and Critical Care Medicine 10 [facility] [place] [address] Patrick Lomeli MD 10 [facility] 2nd [place] [address] [email or web address] 05/18/2025 1:00 PM EDT Blood Draw [facility] Phleb [address] [address] Kristyn Rossi MD [address] [place] [address] 05/18/2025 2:00 PM EDT Office Visit [facility] at [address] [address] Kristyn Rossi MD [address] [place] [address] 05/18/2025 2:40 PM EDT Infusion [facility] at [address] [address] Kristyn Rossi MD [address] [place] [address] Danay Valentin, SUSY [address] [place] [address] documented as of this encounter Visit Diagnoses Not on filedocumented in this encounter Care Teams Tobacco Wrapping Machine Tender Relationship Specialty Start Date End Date Erwin Tran MD PCP - General 11/25/16 08/27/22 Skye Patiño MD 30 [place] [address] [email or web address] PCP - General Family Medicine 08/28/22 12/02/23 Skye Patiño MD [address] [place] [address] [email or web address] PCP - General Family Medicine 12/03/23 Kristyn Rossi MD [address] [place] [address] [email or web address] Primary Oncologist Medical Oncology 10/11/20 08/08/21 Codie Hercules NP [address] [address] [email or web address] Nurse Practitioner Medical Oncology 11/09/20 04/08/24 Karolyn Moody MD [address] [place] [address] [email or web address] General Surgery 11/14/20 Harry Reid MD [address] [place] [address] [email or web address] Radiation Oncology 11/14/20 Kristyn Rossi MD [address] [place] [address] [email or web address] Primary Oncologist Medical Oncology 10/11/20 Patrick Lomeli MD [address] [place] [address] Intensive Care 09/29/23 Neil Lazaro MD [address] [place] [address] [place] [address] Urology 10/12/24 documented as of this encounter Additional Source Comments The information contained in this document represents components of the legal health record. It is not the complete legal health record.[facility]
--- OUTSIDE RECORDS SUMMARY | 2025-01-03 19:36 | XMS_ITS | Encounter Summary ---
Author Organization [facility] Address [address] [place] [address] Phone Care Team Providers Care Supervisor Painting Shipyard Name Role Phone Erwin Tran MD Primary Care Provider [phone] Kristyn Rossi MD Unavailable [phone] Codie Hercules NP Unavailable [phone] Karolyn Moody MD Unavailable [phone] Harry Reid MD Unavailable [phone] Kristyn Rossi MD Unavailable Skye Patiño MD Primary Care Provider Patrick Lomeli MD Unavailable [phone] Skye Patiño MD Primary Care Provider [phone] Neil Lazaro MD Unavailable Reason for Referral * Outpatient Procedure - Closed Specialty Diagnoses / Procedures Referred By Contbarrett t Referred To Contact Radiology Diagnoses Breast mass, right Procedures [facility] Biopsy of Breast (Right) Erwin Tran MD Phone: tel: fax: mailto:[email or web address] Referral ID Status Reason Start Date Expiration Date Visits Re quested Visits Authorized [id number] Closed 09/26/2020 09/26/2021 1 1 Encounter Details Date Type Department Care Team (Late st Contact Info) Description 09/26/2020 Ancillary Orders Virtual Department [address] [place] [address] Erwin Tran MD 70 [place] [address] [email or web address] Breast mass, right Social History Tobacco Use [...] Pulmonary, Allergy and Critical Care Medicine 10 [place] [address] Patrick Lomeli MD [address] [address] [email or web address] 05/18/2025 1:00 PM EDT Blood Draw [facility] Phleb [address] [address] Kristyn Rossi MD [address] [place] [address] 05/18/2025 2:00 PM EDT Office Visit [facility] at [address] [address] Kristyn Rossi MD [address] [place] [address] 05/18/2025 2:40 PM EDT Infusion [facility] at [address] [address] Kristyn Rossi MD [address] [place] [address] Danay Valentin, RN 30 [place] [address] documented as of this encounter Results * [facility] Biopsy of Breast (Right) (10/05/2020 9:16 AM [...] of significant hematoma. Estimated blood loss: None us Erwin Tran MD IMG BI IRP GUIDED BREAST PROC Ed ited Result - Final documented in this encounter Visit Diagnoses Diagnosis Breast mass, right Lump or mass in breast Breast mass, right Lump or mass in breast documented in this encounter Care Teams Supervisor Painting Shipyard Relationship Specialty Start Date End Date Erwin Tran MD [email or web address] PCP - General 11/25/16 08/27/22 Skye Patiño MD 30 [place] [address] [email or web address] PCP - General Family Medicine 08/28/22 12/02/23 Skye Patiño MD [address] [place] [address] [email or web address] PCP - General Family Medicine 12/03/23 Kristyn Rossi MD 30 [place] [address] [email or web address] Primary Oncologist Medical Oncology 10/11/20 08/08/21 Codie Hercules NP [address] [place] [address] [email or web address] Nurse Practitioner Medical Oncology 11/09/20 04/08/24 Karolyn Moody MD [address] [place] [address] [email or web address] General Surgery 11/14/20 Harry Reid MD 30 [place] [address] [email or web address] 234 beds at [facility] Radiation Oncology 11/14/20 Kristyn Rossi MD [address] [place] [address] Primary Oncologist Medical Oncology 10/11/20 Patrick Lomeli MD [address] [place] [address] [email or web address] Intensive Care 09/29/23 Neil Lazaro MD [address] [place] [address] [place] [address] Urology 10/12/24 documented as of this encounter Additional Source Comments The information contained in this document represents components of the legal health record. It is not the complete legal health record.[facility]
--- OUTSIDE RECORDS SUMMARY | 2025-01-03 19:36 | XMS_ITS | Encounter Summary ---
Author Organization [facility] Address [address] [address] Phone Care Team Providers Care Lathe Operator Contact Lens Name Role Phone Karolyn Moody MD Unavailable Harry Reid MD Unavailable [phone] Kristyn Rossi MD Unavailable [phone] Patrick Lomeli MD Unavailable Skye Patiño MD Primary Care Provider [phone] Neil Lazaro MD Unavailable Encounter Details Date Type Department Care Team (Late st Contact Info) Description 04/09/2024 Procedure Pass [facility], [address] [address] Social History Tobacco Use Types Packs/Day Years [...] CD Pulmonary, Allergy and Critical Care Medicine [address] [place] [address] Patrick Lomeli MD [address] [place] [address] dulce 05/18/2025 1:00 PM EDT Blood Draw [facility] Phleb [address] [address] Kristyn Rossi MD [address] [place] [address] 05/18/2025 2:00 PM EDT Office Visit [facility] at [address] [address] Kristyn Rossi MD [address] [place] [address] 05/18/2025 2:40 PM EDT Infusion [facility] at [address] [address] Kristyn Rossi MD [address] [place] [address] Danay Valentin, RN 30 [place] [address] documented as of this encounter Visit Diagnoses Not on filedocumented in this encounter Care Teams Lathe Operator Contact Lens Relationship Specialty Start Date End Date Skye Patiño MD 70 [place] [address] PCP - General Family Medicine 12/03/23 Karolyn Moody MD [address] [place] [address] General Surgery 11/14/20 Harry Reid MD [address] [place] [address] [email or web address] Radiation Oncology 11/14/20 Kristyn Rossi MD [address] [place] [address] Primary Oncologist Medical Oncology 10/11/20 Patrick Lomeli MD [address] [place] [address] [email or web address] Intensive Care 09/29/23 Neil Lazrao MD [address] [place] [address] [place] [address] Urology 10/12/24 documented as of this encounter Additional Source Comments The information contained in this document represents components of the legal health record. It is not the complete legal health record.[facility]
--- OUTSIDE RECORDS SUMMARY | 2025-01-03 19:36 | XMS_ITS | Encounter Summary ---
Author Organization [facility] Address [address] [address] Phone Care Team Providers Care Hammer Runner Name Role Phone Codie Hercules MANAGER HEART FAILURE Unavailable [phone] Karolyn Moody MD Unavailable Harry Reid MD Unavailable [phone] Kristyn Rossi MD Unavailable [phone] Patrick Lomeli MD Unavailable Skye Patiño MD Primary Care Provider [phone] Neil Lazaro MD Unavailable Encounter Details Date Type Department Care Team (Late st Contact Info) Description 12/08/2023 Procedure Pass [facility] Endoscopy Admitting Dept Virtual Department [address] [place] [address] Social History Tobacco Use Types Packs/Day Years [...] CD Pulmonary, Allergy and Critical Care Medicine [address] [place] [address] Patrick Lomeli MD [address] [place] [address] dulce 05/18/2025 1:00 PM EDT Blood Draw [facility] Phleb [address] [address] Kristyn Rossi MD [address] [place] [address] 05/18/2025 2:00 PM EDT Office Visit [facility] at [address] [address] Kristyn Rossi MD [address] [place] [address] 05/18/2025 2:40 PM EDT Infusion [facility] at [address] [address] Kristyn Rossi MD [address] [place] [address] @[email or web address] Danay Valentin, SUSY 30 [place] [address] [email or web address] documented as of this encounter Visit Diagnoses Not on filedocumented in this encounter Care Teams Hammer Runner Relationship Specialty Start Date End Date Skye Patiño MD [address] [place] [address] [email or web address] PCP - General Family Medicine 12/03/23 Codie Hercules NP [address] [place] [address] [email or web address] Nurse Practitioner Medical Oncology 11/09/20 04/08/24 Karolyn Moody MD [address] [place] [address] [email or web address] General Surgery 11/14/20 Harry Reid MD [address] [place] [address] [email or web address] Radiation Oncology 11/14/20 Kristyn Rossi MD [address] [place] [address] Primary Oncologist Medical Oncology 10/11/20 Patrick Lomeli MD [address] [place] [address] [email or web address] Intensive Care 09/29/23 Neil Lazaro MD [address] [place] [address] Dr Adam, [place] [address] Urology 10/12/24 documented as of this encounter Additional Source Comments The information contained in this document represents components of the legal health record. It is not the complete legal health record.[facility]
--- OUTSIDE RECORDS SUMMARY | 2025-01-03 19:36 | XMS_ITS | Encounter Summary ---
Author Organization [facility] Address [address] [address] Phone Care Team Providers Care Structural Metal Fabricator Apprentice Name Role Phone Erwin Tran MD Primary Care Provider [phone] Codie Hercules TRAVEL INSURANCE AGENT Unavailable [phone] Karolyn Moody MD Unavailable [phone] Harry Reid MD Unavailable [phone] Kristyn Rossi MD Unavailable [phone] Skye Patiño MD Primary Care Provider + [phone] Patrick Lomeli MD Unavailable [phone] Skye Patiño MD Primary Care Provider + [phone] Neil Lazaro MD Unavailable Encounter Details Date Type Department Care Team (Late Contact Info) Description 09/17/2021 Procedure Pass [facility] Endoscopy Admitting Dept Virtual Department [address] [place] [address] Social History Tobacco Use Types Packs/Day Years [...] CD Pulmonary, Allergy and Critical Care Medicine [address] [place] [address] [place] [address] Patrick Lomeli MD [address] [place] [address] 2nd [place] [address] dulce 05/18/2025 1:00 PM EDT Blood Draw [facility] Phleb [address] [address] Kristyn Rossi MD [address] [place] [email or web address] 05/18/2025 2:00 PM EDT Office Visit [facility] at [address] [address] Kristyn Rossi MD [address] [place] [address] 05/18/2025 2:40 PM EDT Infusion [facility] at [address] [address] Kristyn Rossi MD [address] [place] [address] Danay Valentin, SUSY [address] [place] [address] documented as of this encounter Visit Diagnoses Not on filedocumented in this encounter Care Teams Structural Metal Fabricator Apprentice Relationship Specialty Start Date End Date Erwin Tran MD PCP - General 11/25/16 08/27/22 Skye Patiño MD [address] [place] [address] [email or web address] PCP - General Family Medicine 08/28/22 12/02/23 Skye Patiño MD 70 [place] [address] PCP - General Family Medicine 12/03/23 Codie Hercules NP [address] [place] [address] [email or web address] Nurse Practitioner Medical Oncology 11/09/20 04/08/24 Karolyn Moody MD [address] [place] [address] [email or web address] General Surgery 11/14/20 Harry Reid MD 30 [place] [address] [email or web address] Radiation Oncology 11/14/20 Kristyn Rossi MD 30 [place] [address] Primary Oncologist Medical Oncology 10/11/20 Patrick Lomeli MD [address] [address] [email or web address] Intensive Care 09/29/23 Neil Lazaro MD [address] [place] [address] [place] [address] Urology 9/2/25 documented as of this encounter Additional Source Comments The information contained in this document represents components of the legal health record. It is not the complete legal health record.[facility]
--- OUTSIDE RECORDS SUMMARY | 2025-01-03 19:36 | XMS_ITS | Encounter Summary ---
Author Organization [facility] Address [address] [employer] [address] [address] Phone Care Team Providers Care Die Maker Electronic Name Role Phone Codie Hercules NP Unavailable [phone] Karolyn Moody MD Unavailable [phone] Harry Reid MD Unavailable [phone] Kristyn Rossi MD Unavailable [phone] Skye Patiño MD Primary Care Provider Patrick Lomeli MD Unavailable [phone] Skye Patiño MD Primary Care Provider Neil Lazaro MD Unavailable Encounter Details Date Type Department Care Team (Late st Contact Info) Description 10/21/2023 Procedure Pass [facility], Ct Scan - [address] [address] Social History Tobacco Use Types Packs/Day Years [...] Pulmonary, Allergy and Critical Care Medicine 10 [place] [address] Patrick Lomeli MD 10 [facility] 2nd [place] [address] dulce 05/18/2025 1:00 PM EDT Blood Draw [facility] Phleb [address] [place] [address] [address] Kristyn Rossi MD [address] [place] [address] 05/18/2025 2:00 PM EDT Office Visit [facility] at [address] [address] Kristyn Rossi MD [address] [place] [address] 05/18/2025 2:40 PM EDT Infusion [facility] at [address] [address] Kristyn Rossi MD [address] [place] [address] Danay Valentin, SUSY [address] [place] [address] documented as of this encounter Visit Diagnoses Not on filedocumented in this encounter Care Teams Die Maker Electronic Relationship Specialty Start Date End Date Skye Patiño MD 30 [place] [address] [email or web address] PCP - General Family Medicine 08/28/22 12/02/23 Skye Patiño MD 70 [place] [address] [email or web address] PCP - General Family Medicine 12/03/23 Codie Hercules NP [address] [place] [address] [email or web address] Nurse Practitioner Medical Oncology 11/09/20 04/08/24 Karolyn Moody MD [address] [place] [address] [email or web address] General Surgery 11/14/20 Harry Reid MD [address] [place] [address] [email or web address] Radiation Oncology 11/14/20 Kristyn Rossi MD [address] [place] [address] [email or web address] Primary Oncologist Medical Oncology 10/11/20 Patrick Lomeli MD [address] [place] [address] [email or web address] Intensive Care 09/29/23 Neil Lazaro MD [address] [place] [address] [place] [address] Urology 10/12/24 documented as of this encounter Additional Source Comments The information contained in this document represents components of the legal health record. It is not the complete legal health record.[facility]
--- OUTSIDE RECORDS SUMMARY | 2025-01-03 19:36 | XMS_ITS | Encounter Summary ---
Author Organization [facility] Address [address] [place] [address] Phone Care Team Providers Care Sprayer Operator Name Role Phone Erwin Tran MD Primary Care Provider [phone] Kristyn Rossi MD Unavailable [phone] Codie Hercules CARD LACER Unavailable [phone] Karolyn Moody MD Unavailable [phone] Harry Reid MD Unavailable [phone] Kristyn Rossi MD Unavailable [phone] Skye Patiño MD Primary Care Provider + [phone] Patrick Lomeli MD Unavailable [phone] Skye Patiño MD Primary Care Provider + [phone] Neil Lazaro MD Unavailable Encounter Details Date Type Department Care Team (Late st Contact Info) Description 06/30/2017 Procedure Pass [facility] [place], Ct Scan - [address] [address] Social History Tobacco Use Types Packs/Day Years [...] [facility] Pulmonary, Allergy and Critical Care Medicine [address] [place] [address] [place] [address] Patrick Lomeli MD 10 [facility] 2nd [place] [address] dulce 05/18/2025 1:00 PM EDT Blood Draw [facility] Phleb [address] [address] Kristyn Rossi MD [address] [place] [address] 05/18/2025 2:00 PM EDT Office Visit [facility] at [address] [address] Kristyn Rossi MD [address] [place] [address] 05/18/2025 2:40 PM EDT Infusion [facility] at [address] [address] Kristyn Rossi MD [address] [place] [address] Danay Valentin RN [address] [place] [address] documented as of this encounter Visit Diagnoses Not on filedocumented in this encounter Care Teams Sprayer Operator Relationship Specialty Start Date End Date Erwin Tran MD PCP - General 11/25/16 08/27/22 Skye Patiño MD [address] [place] [address] [email or web address] PCP - General Family Medicine 08/28/22 12/02/23 Skye Patiño MD [address] [place] [address] [email or web address] PCP - General Family Medicine 12/03/23 Kristyn Rossi MD [address] [place] [address] [email or web address] Primary Oncologist Medical Oncology 10/11/20 08/08/21 Codie Hercules NP [address] [address] [email or web address] Nurse Practitioner Medical Oncology 11/09/20 04/08/24 Karolyn Moody MD [address] [place] [address] [email or web address] General Surgery 11/14/20 Harry Reid MD [address] [place] [address] [email or web address] Radiation Oncology 11/14/20 Kristyn Rossi MD [address] [place] [address] [email or web address] Primary Oncologist Medical Oncology 10/11/20 Patrick Lomeli MD [address] [place] [address] [email or web address] Intensive Care 09/29/23 Neil Lazaro MD [address] [place] [address] Dr Adam, [place]LL[place] [address] Urology 10/12/24 documented as of this encounter Additional Source Comments The information contained in this document represents components of the legal health record. It is not the complete legal health record.[facility]
--- OUTSIDE RECORDS SUMMARY | 2025-01-03 19:36 | XMS_ITS | Encounter Summary ---
Author Organization [facility] Address [address] [place] [address] Phone Care Team Providers Care Candle Wicker Name Role Phone Erwin Tran MD Primary Care Provider [phone] Kristyn Rossi MD Unavailable [phone] Codie Hercules NP Unavailable [phone] Karolyn Moody MD Unavailable [phone] Harry Reid MD Unavailable [phone] Kristyn Rossi MD Unavailable [phone] Skye Patiño MD Primary Care Provider Patrick Lomeli MD Unavailable [phone] Skye Patiño MD Primary Care Provider [phone] Neil Lazaro MD Unavailable Encounter Details Date Type Department Care Team (Latest Contact Info) Description 02/19/2017 Transcribe Orders [facility] Phleb Mona [address] 2nd [place] [address] Wilmer Hathaway MD [address] [address] Abdominal pain, left lower quadrant (Primary Dx); [...] Description 01/25/2025 8:30 AM EST Office [place] [facility] [place], Allergy and Critical Care Medicine 10 [facility] [place] [address] Patrick Lomeli MD 10 [facility] 2nd [place] [address] dulce 05/18/2025 1:00 PM EDT Blood Draw [facility] Phleb [address] [address] Kristyn Rossi MD [address] [place] [address] 05/18/2025 2:00 PM EDT Office Visit [facility] at [address] [address] Kristyn Rossi MD [address] [place] [address] 05/18/2025 2:40 PM EDT Infusion [facility] at [address] [address] Kristyn Rossi MD [address] [place] [address] Danay Valentin, SUSY [address] [place] [address] documented as of this encounter Results * C-Reactive Protein (02/19/2017 11:49 AM EST) C REACTIVE PROTEIN 0.3 0 - 0.5 mg/L [facility] Blood 02/19/2017 11:4 9 AM EST 02/19/2017 11:54 AM EST us Wilmer Hathaway MD LAB BLOOD BKR ORDERABLES Fin al Result Performing Organization Address [facility]/ZIP Co de Phone Number [address] [address] * LFTs (hepatic panel) (02/19/2017 11:49 AM EST) ALKALINE PHOSPHATASE 69 39 - 117 U/L [facility] TOTAL BILIRUBIN 0.4 0 - 1.2 mg/dL [facility] DIRECT BILIRUBIN <0.2 0 - 0.3 mg/dL [facility] Bilirubin (Indirect) NOT CALCULATED 0 - 1.5 mg/dL [facility] AST 18 0 - 37 U/L [facility] ALT 11 0 - 40 U/L [facility] TOTAL PROTEIN 6.6 6.5 - 8.0 g/dL [facility] ALBUMIN 4.1 3.9 - 4.8 g/dL [facility] GLOBULIN 2.5 1 - 4.8 g/dL [facility] A/G Ratio 1.64 1.00 - 4.80 RATIO [facility] Blood 02/19/2017 11:4 9 AM EST 02/19/2017 11:54 AM EST us Wilmer Hathaway MD LAB BLOOD BKR ORDERABLES Fin al Result Performing Organization Address [facility] Co de Phone Number [address] [address] * Tissue transglutaminase IgA (02/19/2017 11:49 AM EST) TTG IGA ANTIBODY <1.2 <4.0 (Negative) U/mL [facility]+ Blood 02/19/2017 11:4 9 AM EST 02/19/2017 11:54 AM EST us Wilmer Hathaway MD LAB BLOOD BKR ORDERABLES Fin al Result [facility] PAT+ [address] [place] [address] * Immunoglobulin A (02/19/2017 11:49 AM EST) IgA 87 70 - 400 mg/dL [facility] Blood 02/19/2017 11:4 9 AM EST 02/19/2017 11:54 AM EST us Wilmer Hathaway MD LAB BLOOD BKR ORDERABLES Fin al Result [facility] [address] [place] [address] * Gliadin deamidated antibody, IgG/IgA (02/19/2017 11:49 AM EST) Gliadin Ab, IGA <10.0 <20.0 (Negative) U [facility] MED AND PAT+ GLIADIN AB IGG <10.0 <20.0 (Negative) U [facility] MED AND PAT+ Blood 02/19/2017 11:4 9 AM EST 02/19/2017 11:54 AM EST us Wilmer Hathaway MD LAB BLOOD ORDERABLES Final R esult [facility] PAT+ [address] [place] [address] * (ABNORMAL) CBC and differential (02/19/2017 11:49 AM EST) WBC 5.31 3.40 - 11.20 K/uL [facility] RBC 3.68(L) 3.80 - 4.80 M/uL [facility] HGB 11.8(L) 12.0 - 15.0 g/dL [facility] HCT 35.7(L) 36.0 - 46.0 % [facility] PLT 270 130 - 400 K/uL [facility] MCV 97.0 79.0 - 98.0 fL [facility] MCH 32.1 27.0 - 34.8 pg [facility] MCHC 33.1 31.5 - 36.0 g/dL [facility] RDW 13.5 10.8 - 14.6 % [facility] MPV 10.5 9.4 - 12.4 fl [facility] NRBC 0.00 /100 WBCs [facility] ABSOLUTE NRBC 0.00 K/uL [facility] DIFF METHOD Auto [facility] NEUTS 51.2 45.30 - 77.70 % [facility] LYMPHS 39.0 12.30 - 39.70 % [facility] MONOS 6.2 4.10 - 12.80 % [facility] EOS 2.3 0 - 7.2 % [facility] BASOS 0.9 0 - 2.80 % [facility] Granulocytes, immature (%) 0.4 0.0 - 0.9 % [facility] ABSOLUTE NEUTS 2.72 1.40 - 7.70 K/uL [facility] ABSOLUTE LYMPHS 2.07 0.60 - 3.20 K/uL [facility] ABSOLUTE MONOS 0.33 0.11 - 0.59 K/uL [facility] ABSOLUTE EOS 0.12 0.01 - 0.50 K/uL [facility] ABSOLUTE BASOS 0.05 0.00 - 0.08 K/uL [facility] Granulocytes, immature 0.02 0.00 - 0.05 K/uL [facility] Blood 02/19/2017 11:4 9 AM EST 02/19/2017 11:54 AM EST us Wilmer Hathaway MD LAB BLOOD BKR ORDERABLES Fin al Result Performing Organization Address City/State/[facility] Co de Phone Number [address] [address] documented in this encounter Visit Diagnoses Diagnosis Abdominal pain, left lower quadrant- Primary Colmenares's esophagus with dysplasia documented in this encounter Care Teams Candle Wicker Relationship Specialty Start Date End Date Erwin Tran MD [email or web address] PCP - General 11/25/16 08/27/22 Skye Patiño MD [address] [place] [address] [email or web address] PCP - General Family Medicine 08/28/22 12/02/23 Skye Patiño MD [address] [place] [address] [email or web address] PCP - General Family Medicine 12/03/23 Kristyn Rossi MD [address] [place] [address] [email or web address] Primary Oncologist Medical Oncology 10/11/20 08/08/21 Codie Hercules NP [address] [address] [email or web address] Nurse Practitioner Medical Oncology 11/09/20 04/08/24 Karolyn Moody MD [address] [place] [address] [email or web address] General [email or web address] 11/14/20 Harry Reid MD [address] [place] [address] [email or web address] Radiation Oncology 11/14/20 Kristyn Rossi MD [address] [place] [address] Primary Oncologist Medical Oncology 10/11/20 Patrick Lomeli MD [address] [place] [address] [email or web address] Intensive Care 09/29/23 Neil Lazaro MD [address] [place] [address] [place] [address] Urology 10/12/24 documented as of this encounter Additional Source Comments The information contained in this document represents components of the legal health record. It is not the complete legal health record.[facility]
--- OUTSIDE RECORDS SUMMARY | 2025-01-03 19:36 | XMS_ITS | Encounter Summary ---
Author Organization [facility] Address [address] [place] [address] Phone Care Team Providers Care Windows Server Engineer Name Role Phone Erwin Tran MD Primary Care Provider [phone] Kristyn Rossi MD Unavailable Codie Hercules NP Unavailable [phone] Karolyn Moody MD Unavailable [phone] Harry Reid MD Unavailable [phone] Kristyn Rossi MD Unavailable [phone] Skey Patiño MD Primary Care Provider Patrick Lomeli MD Unavailable + [phone] Skye Patiño MD Primary Care Provider Neil Lazaro MD Unavailable Reason for Referral * Outpatient Procedure - Closed Specialty Diagnoses / Procedures Referred By Vince t Referred To Contact Radiology Diagnoses Colmenares's esophagus without dysplasia Lower abdominal pain, unspecified Change in bowel habits Procedures NM Gastric Emptying Sury Capellan PA-C Phone: tel: fax: [email or web address]:[email or web address] Referral ID Status Reason Start Date Expiration Date Visits Re quested Visits Authorized [id number] Closed 05/31/2020 05/31/2021 1 1 Encounter Details Date Type Department Care Team (Latest Contact Info) Description 05/31/2020 Transcribe Orders Virtual Department [address] [place] [address] Sury Capellan PA-C [address] [place] [address] Colmenares's esophagus without dysplasia (Primary Dx); Lower [...] [facility] Pulmonary, Allergy and Critical Care Medicine [address] [place] [address] [place] [address] Patrick Lomeli MD [address] [place] [address] [email or web address] 05/18/2025 1:00 PM EDT Blood Draw [facility] Phleb MG [address] [place] [address] Kristyn Rossi MD [address] [place] [address] 05/18/2025 2:00 PM EDT Office Visit [facility] at [address] [address] Kristyn Rossi MD [address] [place] [address] 05/18/2025 2:40 PM EDT Infusion [facility] at [address] [address] Kristyn Rossi MD 30 [place] [address] [email or web address] Danay Valentin RN [address] [place] [address] [email or web address] documented as of this encounter Results * [...] system documented in this encounter Care Teams Windows Server Engineer Relationship Specialty Start Date End Date Erwin Tran MD [email or web address] PCP - General 11/25/16 08/27/22 Skye Patiño MD 30 [place] [address] [email or web address] PCP - General Family Medicine 08/28/22 12/02/23 Skye Patiño MD [address] [place] [address] [email or web address] PCP - General Family Medicine 12/03/23 Kristyn Rossi MD [address] [place] [address] [email or web address] Primary Oncologist Medical Oncology 10/11/20 08/08/21 Codie Hercules LIGHT ARMORED VEHICLE OFFICER [address] [address] [email or web address] Nurse Practitioner Medical Oncology 11/09/20 04/08/24 Karolyn Moody MD 15 [facility], [address] [place] [address] [email or web address] General Surgery 11/14/20 Harry Reid MD [address] [place] [address] [email or web address] Radiation Oncology 11/14/20 Kristyn Rossi MD [address] [place] [address] [email or web address] Primary Oncologist Medical Oncology 10/11/20 Patrick Lomeli MD [address] [place] [address] [email or web address] Intensive Care 09/29/23 Neil Lazaro MD [address] [place] [address] [place] [address] Urology 10/12/24 documented as of this encounter Additional Source Comments The information contained in this document represents components of the legal health record. It is not the complete legal health record.[facility]
--- OUTSIDE RECORDS SUMMARY | 2025-01-03 19:36 | XMS_ITS | Encounter Summary ---
Author Organization [facility] Address [address] [place] [address] Phone Care Team Providers Care Sign Out Clerk Name Role Phone Erwin Tran MD Primary Care Provider [phone] Codie Hercules ELECTRIC RAZOR ASSEMBLER Unavailable [phone] Karolyn Moody MD Unavailable [phone] Harry Reid MD Unavailable [phone] Kristyn Rossi MD Unavailable [phone] Skye Patiño MD Primary Care Provider + [phone] Patrick Lomeli MD Unavailable [phone] Skye Patiño MD Primary Care Provider + [phone] Neil Lazaro MD Unavailable Encounter Details Date Type Department Care Team (Late st Contact Info) Description 12/31/2021 Procedure Pass [facility], Ct Scan - [address] [address] Social History Tobacco Use Types Packs/Day Years [...] Pulmonary, Allergy and Critical Care Medicine 10 [place] [address] Patrick Lomeli MD 10 [facility] 2nd [place] [address] [email or web address] 05/18/2025 1:00 PM EDT Blood Draw [facility] Phleb [address] [address] Kristyn Rossi MD [address] [place] [address] 05/18/2025 2:00 PM EDT Office Visit [facility] at [address] [address] Kristyn Rossi MD [address] [place] [address] [email or web address] 05/18/2025 2:40 PM EDT Infusion [facility] at [address] [address] Kristyn Rossi MD [address] [place] [address] Danay Valentin, SUSY [address] [place] [address] documented as of this encounter Visit Diagnoses Not on filedocumented in this encounter Care Teams Sign Out Clerk Relationship Specialty Start Date End Date Erwin Tran MD PCP - General 11/25/16 08/27/22 Skye Patiño MD [address] [place] [address] [email or web address] PCP - General Family Medicine 08/28/22 12/02/23 Skye Patiño MD [address] [place] [address] [email or web address] PCP - General Family Medicine 12/03/23 Codie Hercules NP [address] [place] [address] [email or web address] Nurse Practitioner Medical Oncology 11/09/20 04/08/24 Karolyn Moody MD [address] [place] [address] [email or web address] General Surgery 11/14/20 Harry Reid MD 30 [place] [address] [email or web address] Radiation Oncology 11/14/20 Kristyn Rossi MD 30 [place] [address] [email or web address] Primary Oncologist Medical Oncology 10/11/20 Patrick Lomeli MD [address] [address] [email or web address] Intensive Care 09/29/23 Neil Lazaro MD [address] [place] [address] [place] [address] Urology 10/12/24 documented as of this encounter Additional Source Comments The information contained in this document represents components of the legal health record. It is not the complete legal health record.[facility]
--- OUTSIDE RECORDS SUMMARY | 2025-01-03 19:36 | XMS_ITS | Encounter Summary ---
Author Organization [facility] Address [address] [place] [address] Phone Care Team Providers Care Event Marketing Specialist Name Role Phone Erwin Tran MD Primary Care Provider [phone] Kristyn Rossi MD Unavailable Codie Hercules SUPERVISOR TANK STORAGE Unavailable [phone] Karolyn Moody MD Unavailable [phone] Harry Reid MD Unavailable [phone] Kristyn Rossi MD Unavailable [phone] Skye Patiño MD Primary Care Provider + [phone] Patrick Lomeli MD Unavailable [phone] Skye Patiño MD Primary Care Provider + [phone] Neil Lazaro MD Unavailable Encounter Details Date Type Department Care Team (Late Contact Info) Description 07/08/2017 Procedure Pass [facility] Endoscopy Admitting Dept Virtual Department [address] [place] [address] Social History Tobacco Use Types Packs/Day Years [...] Pulmonary, Allergy and Critical Care Medicine [address] [place] [address] Patrick Lomeli MD 10 [facility] 2nd [place] [address] [email or web address] 05/18/2025 1:00 PM EDT Blood Draw [facility] Phleb [address] [address] Kristyn Rossi MD [address] [place] [address] 05/18/2025 2:00 PM EDT Office Visit [facility] at [address] [address] Kristyn Rossi MD [address] [place] [address] 05/18/2025 2:[address] [facility] at [address] [address] Kristyn Rossi MD [address] [place] [address] [email or web address] Danay Valentin RN [address] [place] [address] documented as of this encounter Visit Diagnoses Not on filedocumented in this encounter Care Teams Event Marketing Specialist Relationship Specialty Start Date End Date Erwin Tran MD PCP - General 11/25/16 08/27/22 Skye Patiño MD [address] [place] [address] [email or web address] PCP - General Family Medicine 08/28/22 12/02/23 Skye Patiño MD [address] [place] [address] [email or web address] PCP - General Family Medicine 12/03/23 Kristyn Rossi MD [address] [place] [address] [email or web address] Primary Oncologist Medical Oncology 10/11/20 08/08/21 Codie Hercules NP [address] [address] [email or web address] Nurse Practitioner Medical Oncology 11/09/20 04/08/24 Karolyn Moody MD [address] [place] [address] [email or web address] General Surgery 11/14/20 Harry Reid MD [address] [place] [address] [email or web address] Radiation Oncology 11/14/20 Kristyn Rossi MD [address] [place] [address] [email or web address] Primary Oncologist Medical Oncology 10/11/20 Patrick Lomeli MD [address] [place] [address] [email or web address] Intensive Care 09/29/23 Neil Lazaro MD [address] [place] [address] [place] [address] Urology 10/12/24 documented as of this encounter Additional Source Comments The information contained in this document represents components of the legal health record. It is not the complete legal health record.[facility]
--- OUTSIDE RECORDS SUMMARY | 2025-01-03 19:36 | XMS_ITS | Encounter Summary ---
Author Organization [facility] Address [address] [place] [address] Phone Care Team Providers Care Corn Grower Name Role Phone Erwin Tran MD Primary Care Provider [phone] Kristyn Rossi MD Unavailable [phone] Codie Hercules BIOINFORMATICS ASSOCIATE Unavailable [phone] Karolyn Moody MD Unavailable [phone] Harry Reid MD Unavailable [phone] Kristyn Rossi MD Unavailable [phone] Skye Patiño MD Primary Care Provider Patrick Lomeli MD Unavailable [phone] Skye Patiño MD Primary Care Provider + [phone] Neil Lazaro MD Unavailable Reason for Referral * MRI/CAT Scan - Closed Specialty Diagnoses / Procedures Referred By Vince t Referred To Contact Radiology Diagnoses Bronchiectasis without complication Procedures CT Chest Kana Ramos MD Phone: tel: fax: [email or web address] Referral ID Status Reason Start Date Expiration Date Visits Re quested Visits Authorized [id number] Closed 08/21/2018 10/19/2018 1 1 Encounter Details Date Type Department Care Team (Latest Contact Info) Description 08/18/2018 Transcribe Orders Virtual Department [address] [place] [address] Kana Ramos MD [address] [place] [address], [address] [address] [email or web address] Bronchiectasis without complication (Primary Dx) [...] Description 01/25/2025 8:30 AM EST Office [place] [facility] [place], Allergy and Critical Care Medicine [address] [place] [address] [place] [address] Patrick Lomeli MD [address] [place] [address] [email or web address] 05/18/2025 1:00 PM EDT Blood Draw [facility] Phleb [facility] [address] [place] [address] Kristyn Rossi MD [address] [place] [address] 05/18/2025 2:00 PM EDT Office Visit [facility] at [address] [address] Kristyn Rossi MD [address] [place] [address] 05/18/2025 2:40 PM EDT Infusion [facility] at [address] [address] Kristyn Rossi MD [address] [place] [address] [email or web address] Danay Valentin, SUSY [address] [place] [address] documented as of this encounter Results * [...] the chest with IV contrast. 100 mL [id number] contrast IV. Helical axial CT imaging with [...] by: Arabella Early on 09/02/2018 4:57 PM us Kana Ramos MD IMG CT CHEST Final Result documented in this encounter Visit Diagnoses Diagnosis Bronchiectasis without complication- Primary Bronchiectasis without complication Epigastric abdominal pain Abdominal pain, epigastric Lower abdominal pain Abdominal pain, other specified site documented in this encounter Care Teams Corn Grower Relationship Specialty Start Date End Date Erwin Tran MD [email or web address] PCP - General 11/25/16 08/27/22 Skye Patiño MD [address] [place] [address] [email or web address] PCP - General Family Medicine 08/28/22 12/02/23 Skye Patiño MD [address] [place] [address] [email or web address] PCP - General Family Medicine 12/03/23 Kristyn Rossi MD [address] [place] [address] [email or web address] Primary Oncologist Medical Oncology 10/11/20 08/08/21 Codie Hercules BIOINFORMATICS ASSOCIATE [address] [place] [address] [email or web address] Nurse Practitioner Medical Oncology 11/09/20 04/08/24 Karolyn Moody MD 15 [facility], [address] [place] [address] General Surgery 11/14/20 Harry Reid MD [address] [place] [address] [email or web address] Radiation Oncology 11/14/20 Kristyn Rossi MD [address] [place] [address] [email or web address] Primary Oncologist Medical Oncology 10/11/20 Patrick Lomeli MD [address] [place] [address] [email or web address] Intensive Care 09/29/23 Neil Lazaro MD [address] [place] [address] [place] [address] Urology 10/12/24 documented as of this encounter Additional Source Comments The information contained in this document represents components of the legal health record. It is not the complete legal health record.[facility]
--- OUTSIDE RECORDS SUMMARY | 2025-01-03 19:36 | XMS_ITS | Encounter Summary ---
Author Organization [facility] Address [address] [employer] [address] [address] Phone Care Team Providers Care Pillowcase Folder Name Role Phone Erwin Tran MD Primary Care Provider [phone] Codie Hercules CUSTOMER RELATIONS CONSULTANT Unavailable [phone] Karolyn Moody MD Unavailable [phone] Harry Reid MD Unavailable [phone] Kristyn Rossi MD Unavailable [phone] Skye Patiño MD Primary Care Provider + [phone] Patrick Lomeli MD Unavailable [phone] Skye Patiño MD Primary Care Provider + [phone] Neil Lazaro MD Unavailable Encounter Details Date Type Department Care Team (Late st Contact Info) Description 08/27/2022 Procedure Pass [facility], [address] [address] Social History Tobacco Use Types Packs/Day Years [...] Pulmonary, Allergy and Critical Care Medicine 10 [facility] [place] [address] Patrick Lomeli MD [address] 2nd [place] [address] [email or web address] 05/18/2025 1:00 PM EDT Blood Draw [facility] [address] [address] Kristyn Rossi MD [address] [place] [address] 05/18/2025 2:00 PM EDT Office Visit [facility] at [address] [address] Kristyn Rossi MD [address] [place] [address] 05/18/2025 2:40 PM EDT Infusion [facility] at [address] [address] Kristyn Rossi MD [address] [place] [address] Danay Valentin RN [address] [place] [address] documented as of this encounter Visit Diagnoses Not on filedocumented in this encounter Care Teams Pillowcase Folder Relationship Specialty Start Date End Date Erwin Tran MD [email or web address] PCP - General 11/25/16 08/27/22 Skye Patiño MD [address] [place] [address] [email or web address] PCP - General Family Medicine 08/28/22 12/02/23 Skye Patiño MD [address] [place] [address] [email or web address] PCP - General Family Medicine 12/03/23 Codie Hercules NP [address] [place] [address] [email or web address] Nurse Practitioner Medical Oncology 11/09/20 04/08/24 Karolyn Moody MD [address] [place] [address] [email or web address] General Surgery 11/14/20 Harry Reid MD [address] [place] [address] [email or web address] Radiation Oncology 11/14/20 Kristyn Rossi MD [address] [place] [address] [email or web address] Primary Oncologist Medical Oncology 10/11/20 Patrick Lomeli MD [address] [place] [address] [email or web address] Intensive Care 09/29/23 Neil Lazaro MD [address] [place] [address] [place] [address] Urology 10/12/24 documented as of this encounter Additional Source Comments The information contained in this document represents components of the legal health record. It is not the complete legal health record.[facility]
--- OUTSIDE RECORDS SUMMARY | 2025-01-03 19:36 | XMS_ITS | Encounter Summary ---
Author Organization [facility] Address [address] [place] [address] Phone Care Team Providers Care Boring Mill Set Up Operator Vertical Name Role Phone Erwin Tran MD Primary Care Provider [phone] Kristyn Rossi MD Unavailable [phone] Codie Hercules NP Unavailable [phone] Karolyn Moody MD Unavailable [phone] Harry Reid MD Unavailable [phone] Krsityn Rossi MD Unavailable [phone] Skye Patiño MD Primary Care Provider Patrick Lomeli MD Unavailable [phone] Syke Patiño MD Primary Care Provider + [phone] Neil Lazaro MD Unavailable [phone] Reason for Referral * MRI/CAT Scan - Closed Specialty Diagnoses / Procedures Referred By Contbarrett t Referred To Contact Radiology Diagnoses Epigastric abdominal pain Lower abdominal pain Procedures CT Abdomen/Pelvis Wilmer Hathaway MD Phone: tel: fax: [email or web address] Referral ID Status Reason Start Date Expiration Date Visits Re quested Visits Authorized [id number] Closed 08/26/2018 08/26/2019 1 1 Encounter Details Date Type Department Care Team (Latest Contact Info) Description 08/26/2018 Transcribe Orders Virtual Department [address] [place] [address] Wilmer Hathaway MD [address] [place] [address] Epigastric abdominal pain (Primary Dx); Lower abdominal [...] Pulmonary, Allergy and Critical Care Medicine 10 [facility] [place] [address] Patrick Lomeli MD [address] [place] [address] [email or web address] 05/18/2025 1:00 PM EDT Blood Draw [facility]le[facility] MG [address] [place] [address] Kristyn Rossi MD [address] [place] [address] 05/18/2025 2:00 PM EDT Office Visit [facility] at [address] [address] Kristyn Rossi MD [address] [place] [address] 05/18/2025 2:40 PM EDT Infusion [facility] at [address] [address] Kristyn Rossi MD [address] [place] [address] Danay Valentin, SUSY [address] [place] [address] [email or web address] documented as of this encounter Results * [...] TOTAL CTDIvol: 10.8 mGy POS - [id number] Wilmer Hathaway MD IMG CT ABD/PELVIS Final Resu lt documented in this encounter Visit Diagnoses Diagnosis Epigastric abdominal pain- Primary Abdominal pain, epigastric Lower abdominal pain Abdominal pain, other specified site Bronchiectasis without complication Epigastric abdominal pain Abdominal pain, epigastric Lower abdominal pain Abdominal pain, other specified site documented in this encounter Care Teams Boring Mill Set Up Operator Vertical Relationship Specialty Start Date End Date Erwin Tran MD PCP - General 11/25/16 08/27/22 Skye Patiño MD [address] [place] [address] PCP - General Family Medicine 08/28/22 12/02/23 Skye Patiño MD [address] [place] [place] [address] PCP - General Family Medicine 12/03/23 Kristyn Rossi MD [address] [place] [address] [email or web address] Primary Oncologist Medical Oncology 10/11/20 08/08/21 Codie Hercules RECORD PRESSMAN [address] [place] [address] [email or web address] Nurse Practitioner Medical Oncology 11/09/20 04/08/24 Karolyn Moody MD [address] [address] General Surgery 11/14/20 Harry Reid MD [address] [place] [address] [email or web address] Radiation Oncology 11/14/20 Kristyn Rossi MD [address] [place] [address] Primary Oncologist Medical Oncology 10/11/20 Patrick Lomeli MD [address] [place] [address] [email or web address] Intensive Care 09/29/23 Neil Lazaro MD [address] [place] [address] Dr [place] [phone] Urology 10/12/24 documented as of this encounter Additional Source Comments The information contained in this document represents components of the legal health record. It is not the complete legal health record.[facility]
--- OUTSIDE RECORDS SUMMARY | 2025-01-03 19:36 | XMS_ITS | Encounter Summary ---
Author Organization [facility] Address [address] [address] Phone Care Team Providers Care Facilities Clerk Name Role Phone Codie Hercules NP Unavailable [phone] Karolyn Moody MD Unavailable [phone] Harry Reid MD Unavailable [phone] Kristyn Rossi MD Unavailable [phone] Patrick Lomeli MD Unavailable [phone] Skye Patiño MD Primary Care Provider + [phone] Neil Lazaro MD Unavailable [phone] Reason for Referral * MRI/CAT Scan - Closed Specialty Diagnoses / Procedures Referred By Contac t Referred To Contact Radiology Diagnoses Sensorineural hearing loss (SNHL), unspecified laterality Procedures MRI Brain CHG MRI BRAIN COMBO CHG MRI BRAIN CHG MRI BRAIN CONTRAST She Castanon NP [address] [place] [address] Phone: tel: fax: Referral ID Status Reason Start Date Expiration Date Visits Re quested Visits Authorized [id number] Closed 02/10/2024 04/09/2024 1 1 Encounter Details Date Type Department Care Team (Latest Contact Info) Description 02/12/2024 Transcribe Orders [facility] Department [address] [place] [address] She Castanon NP [address] [place] [address] Sensorineural hearing loss (SNHL), unspecified laterality (Primary [...] Pulmonary, Allergy and Critical Care Medicine 10 [facility] [place] [address] Patrick Lomeli MD 10 [facility] 2nd [place] [address] [email or web address] 05/18/2025 1:00 PM EDT Blood Draw [facility] Phleb MG [address] [place] [address] Kristyn Rossi MD [address] [place] [address] 05/18/2025 2:00 PM EDT Office Visit [facility] at [address] [address] Kristyn Rossi MD [address] [place] [address] 05/18/2025 2:40 PM EDT Infusion [facility] at [address] [address] Kristyn Rsosi MD [address] [place] [address] [email or web address] Danay Valentin, SUSY [address] [place] [address] documented as of this encounter Results * [...] provided indication for this examination in Epic: Outside Radiology Order; pt w/sudden sensorineural heading [...] clinician's provided indication for this examination in [facility]:Outside Radiology Order; pt w/sudden sensorineural heading [...] laterality documented in this encounter Care Teams Facilities Clerk Relationship Specialty Start Date End Date Skye Patiño MD [address] [place] [address] PCP - General Family Medicine 12/03/23 Codie Hercules NP [address] [place] [address] [email or web address] Nurse Practitioner Medical Oncology 11/09/20 04/08/24 Karolyn Moody MD [address] [address] [email or web address] General Surgery 11/14/20 Harry Reid MD [address] [place] [address] [email or web address] Radiation Oncology 11/14/20 Kristyn Rossi MD [address] [place] [address] Primary Oncologist Medical Oncology 10/11/20 Patrick Lomeli MD [address] [place] [address] [email or web address] Intensive Care 09/29/23 Neil Lazaro MD [address] [place] [address] [place] [address] Urology 10/12/24 documented as of this encounter Additional Source Comments The information contained in this document represents components of the legal health record. It is not the complete legal health record.[facility]
--- OUTSIDE RECORDS SUMMARY | 2025-01-03 19:37 | XMS_ITS ---
Author Organization [facility] Address [address] [employer] [facility] [address] [place] [address] Phone Care Team Providers Care Director Of Special Education Name Role Phone Karolyn Moody MD Unavailable Harry Reid MD Unavailable [phone] Kristyn Rossi MD Unavailable [phone] Patrick Lomeli MD Unavailable Skye Patiño MD Primary Care Provider [phone] Neil Lazaro MD Unavailable [phone] Active Problems Patient Care Coordination No te [...]
--- OUTSIDE RECORDS SUMMARY | 2025-01-03 19:37 | XMS_ITS | Clinical Summary ---
Author Organization [facility] Address [address] [address] Phone Care Team Providers Care Business Liaison Manager Name Role Phone Karolyn Moody MD Unavailable Harry Reid MD Unavailable [phone] Kristyn Rossi MD Unavailable Patrick Lomeli MD Unavailable Skye Patiño MD Primary Care Provider [phone] Neil Lazaro MD Unavailable [phone] Allergies Active Allergy Reactions Criticality Noted Date Comments Morphine Hallucinations High 10/12/2024 Metoclopramide Hcl Acute Generalized Ex anthematous Pustulosis 07/08/2017 Medications valACYclovir (VALTREX) 500 MG tablet Take 500 mg by mouth daily. Active cholecalciferol (VITAMIN D3) 2,000 unit capsule Take 1,000 Units by mouth daily. Active vitamins A,C,E-wlow-olozp r (PRESERVISION AREDS) 14,320-226-200 gmcy-gn-vvme Cap Take 1 capsule by mouth 2 [...] daily. 90 tablet 3 02/18/19 25 Active Hospital, Clinic, or Other Facility Administered Medication [...] Encounters Date Type Department Care Team Description 12/10/2024 1:36 PM EDT - 12/10/2024 11:59 PM EDT Hospital Encounter [facility], [address] [address] Kristyn Rossi MD Discharge Disposition: Home or Self Care 12/02/[address] [facility] at [address] [address] Kristyn Rossi MD 6 m w/treatment 11/16/2024 2:40 PM EDT Infusion 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 at [address] [address] Kristyn Rossi MD Malignant neoplasm of upper-outer quadrant of right breast in female, estrogen receptor positive (Primary Dx); Age-related osteoporosis without current pathological fracture 11/16/2024 1:20 PM EDT - 11/16/2024 11:59 PM EDT Hospital Encounter [facility] [address] [address] Kristyn Rossi MD Discharge Disposition: Home or Self Care 11/10/[address] [facility] at [address] [address] Sandra Hurst [place] Acute renal failure, unspecified acute renal failure type (Primary Dx) 11/05/2024 5:49 PM EDT - 11/05/2024 11:59 PM EDT Hospital Encounter [address] [address] Kristyn Rossi MD Discharge Disposition: Home or Self Care 10/27/2024 Procedure Pass [address] [address] 10/27/2024 Telephone [facility] at [address] [address] Kristyn Rossi MD renal lesion on usg 10/18/2024 3:45 PM EDT - 10/18/2024 11:59 PM EDT Hospital Encounter [address] [address] Skye Patiño MD Discharge Disposition: Home or Self Care 10/13/2024 9:11 AM EDT - 10/13/2024 11:59 PM EDT Hospital Encounter [address] [address] Kristyn Rossi MD Discharge Disposition: Home or Self Care 10/12/2024 2:00 PM EDT Office Visit [facility] at [address] [address] Kristyn Rossi MD Acute renal failure, unspecified acute renal failure type (Primary Dx); Malignant neoplasm of upper-outer quadrant of right breast in female, estrogen receptor positive 10/12/2024 1:15 PM EDT - 10/12/2024 11:59 PM EDT Hospital Encounter [facility] [address] [place] [address] Kristyn Rossi MD Discharge Disposition: Home or Self Care 10/04/[address] [facility] at [facility] [address] [place] [address] [place], [place] Malignant neoplasm of upper-outer quadrant of right breast in female, estrogen receptor positive (Primary Dx) 04/09/2024 Procedure Pass [facility], Mammography- [facility] [address] [place] [address] from Last 3 Months Immunizations Immunization Administration [...] Description 01/25/2025 8:30 AM EST Office Visit [facility] Pulmonary, Allergy and Critical Care Medicine [address] [facility] [place] [address] Patrick Lomeli MD 10 [facility] 2nd [place] [address] dulce 05/18/2025 1:00 PM EDT Blood Draw [facility] [address] [address] Kristyn Rossi MD [address] [place] [address] 05/18/2025 2:00 PM EDT Office Visit [facility] at [address] [address] Kristyn Rossi MD [address] [place] [address] 05/18/2025 2:40 PM EDT Infusion [facility] at [address] [address] Kristyn Rossi MD [address] [place] [address] Danay Valentin, SUSY [address] [place] [id number] Health Maintenance Due Date Last Done Comments LIPID PANEL 1945 DEPRESSION SCREENING 1958 SMOKING Hx and SMOKELESS TOBACCO SCREENING 1959 HEPATITIS C SCREENING 01/05/1964 COLOGUARD 1991 FIT TEST 1991 FOBT 1991 SIGMOIDOSCOPY 1991 VIRTUAL COLONOSCOPY 1991 RSV VACCINE (1 - 1-dose 75+ series) 2021 COVID-19 VACCINE ( season) 2025 10/30/2024, 06/01/2024, 10/29/2023, Additional history exists COLONOSCOPY 07/09/2027 07/08/2017 COLORECTAL CANCER SCREENING 07/09/2027 Adult Td,Tdap Booster 12/02/2029 12/03/2019 , 05/27/2013, [...] this topic Medical Devices Implanted Type Area Architectural Superintendent Device Identifier Shelf Expiration Date Model / Serial / Lot Marker Ultraclip 17ga 10cm Tissue Dual Trigger Breast Ti Ghislaine Shape Bx/5ea - [id number] Implanted:Qty: 1 on 10/05/2020 by Tristen Abel MD at [facility] Right: Breast CR [employer] [id number] / / Procedures Procedure Name Priority Date/Time Associated Diagnosis Comments BI MAMMOGRAM SCREENING WITH TOMOSYNTHESIS WITH CAD (BILATERAL) Routine 12/10/2024 1:58 PM EDT Malignant neoplasm of upper-outer quadrant of right breast in female, estrogen receptor positive COMPREHENSIVE METABOLIC PANEL (CMP) Routine 11/16/2024 1:22 PM EDT Acute renal failure, unspecified acute renal failure type CBC AND DIFFERENTIAL Routine 11/16/2024 1:22 PM EDT Acute renal failure, unspecified acute renal failure type CT ABDOMEN (ADRENAL MASS) WITH AND WITHOUT CONTRAST Routine 11/05/2024 6:11 PM EDT Renal mass URINALYSIS WITH REFLEX TO URINE CULTURE Routine 10/18/2024 3:57 PM EDT [...] acute renal failure type COMPREHENSIVE METABOLIC PANEL (CMP) Routine 10/18/2024 3:53 PM EDT C-REACTIVE PROTEIN (CRP) Routine 10/18/2024 3:53 PM EDT Acute renal failure, unspecified acute renal failure type SEDIMENTATION RATE (ESR) Routine 10/18/2024 3:53 PM EDT Acute renal failure, unspecified acute renal failure type CBC Routine 10/18/2024 3:53 PM EDT Acute renal failure, unspecified acute renal failure type US KIDNEYS AND BLADDER Routine 9:49 AM EDT Acute renal failure, unspecified acute renal failure type COMPREHENSIVE METABOLIC PANEL (CMP) Routine 10/12/2024 1:15 PM EDT Malignant neoplasm of upper-outer quadrant of right breast in female, estrogen receptor positive BD DXA AXIAL (SPINE) WITH HIP Routine 09/08/2023 1:31 PM EDT Osteopenia of necks of both femurs ENDOSCOPY, COLON 07/08/2017 8:19 AM EDT from Last 3 Months or Most Recently Relevant to Health Maintenance Results * BI MAMMOGRAM SCREENING WITH TOMOSYNTHESIS WITH CAD (BILATERAL) (12/10/2024 1:58 PM EDT) Anatomical Region Laterality Modality Breast Left, Breast Right, Breast Bilateral Bila teral Mammography 12/11/2024 2:03 PM EDT Impressions 12/11/2024 2:05 PM EDT No mammographic evidence of malignancy in either breast. Annual screening mammography is recommended. BI-RADS 2 BENIGN The patient will be notified of the results and recommendations. Narrative 12/11/2024 2:05 PM EDT BI MAMMOGRAM SCREENING WITH TOMOSYNTHESIS WITH CAD (BILATERAL) Additional patient information: Screening. COMPARISON: Comparison is made with relevant prior imaging. Breast composition: The breasts are heterogeneously dense, which may obscure small masses. FINDINGS: Post-treatment changes are present in the right breast. No abnormal masses, suspicious calcifications, or other significant findings are identified mammographically in either breast. Procedure Note La Dinh MD - 12/11/2024 BI MAMMOGRAM SCREENING WITH TOMOSYNTHESIS WITH CAD (BILATERAL) Additional patient information: Screening. COMPARISON: Comparison is made with relevant prior imaging. Breast composition: The breasts are heterogeneously dense, which mayobscure small masses. FINDINGS: Post-treatment changes are present in the right breast. No abnormal masses, suspicious calcifications, or other significantfindings are identified mammographically in either breast. IMPRESSION: No mammographic evidence of malignancy in either breast. Annual screening mammography is recommended. BI-RADS 2 BENIGN The patient will be notified of the results and recommendations. Kristyn Rossi MD IMG MG EXAMS Final Result * (ABNORMAL) Comprehensive metabolic panel (11/16/2024 1:22 PM EDT) Only the most recent of3 resultswithin the time period is included. SODIUM 143 133 - 146 mmol/L [facility] POTASSIUM 4.5 3.3 - 5.1 mmol/L [facility] CHLORIDE 106 96 - 108 mmol/L [facility] CO2 27 21 - 35 mmol/L [facility] BUN 20(H) 6 - 19 mg/dL [facility] CREATININE 0.70 0.5 - 1.5 mg/dL [facility] GLUCOSE 104(H) 70 - 99 mg/dL [facility] ALBUMIN 4.2 3.9 - 4.8 g/dL [facility] TOTAL PROTEIN 7.3 6.5 - 8.0 g/dL [facility] CALCIUM 9.8 8.4 - 10.3 mg/dL [facility] ALKALINE PHOSPHATASE 107 39 - 117 U/L [facility] TOTAL BILIRUBIN 0.7 0.0 - 1.2 mg/dL [facility] AST 18 0 - 37 U/L [facility] ALT 13 0 - 40 U/L [facility] GLOBULIN 3.1 1 - 4.8 g/dL [facility] EGFR 88 >59 mL/min/1.7 3m2 [facility] Comment:Estimated glomerular filtration rate calculated using the CKD-EPI refit equation. ANION GAP 15 10 - 20 mmol/L [facility] Blood 11/16/2024 1:22 PM EDT 11/16/2024 1:25 PM EDT us Kristyn Rossi MD LAB BLOOD BKR ORDERABLES Kelli l Result [facility] [address] [place] [address] * (ABNORMAL) CBC and differential (11/16/2024 1:22 PM EDT) WBC 7.32 4.00 - 11.00 K/uL [facility] RBC 3.83(L) 4.00 - 5.20 M/uL [facility] HGB 12.3 12.0 - 16.0 g/dL [facility] HCT 37.9 36.0 - 46.0 % [facility] PLT 235 150 - 450 K/uL [facility] MCV 99.0 80.0 - 100.0 fL [facility] MCH 32.1(H) 27.0 - 31.0 pg [facility] MCHC 32.5 32.0 - 36.0 g/dL [facility] RDW 14.2 11.5 - 14.5 % [facility] MPV 10.4 8.4 - 12.0 fL [facility] NRBC 0.00 0.00 /100 WBCs [facility] ABSOLUTE NRBC 0.00 0.00 K/uL [facility] DIFF METHOD Auto [facility] NEUTS 70.5 48.0 - 76.0 % [facility] LYMPHS 20.6 18.0 - 41.0 % [facility] MONOS 6.3 4.0 - 11.0 % [facility] EOS 1.8 0.0 - 5.0 % [facility] BASOS 0.5 0.0 - 1.5 % [facility] Granulocytes, immature (%) 0.3 0.0 - 0.9 % [facility] ABSOLUTE NEUTS 5.16 1.92 - 7.60 K/uL [facility] ABSOLUTE LYMPHS 1.51 0.72 - 4.10 K/uL [facility] ABSOLUTE MONOS 0.46 0.16 - 1.10 K/uL [facility] ABSOLUTE EOS 0.13 0.00 - 0.50 K/uL [facility] ABSOLUTE BASOS 0.04 0.00 - 0.15 K/uL [facility] Granulocytes, immature 0.02 0.00 - 0.09 K/uL [facility] Blood 11/16/2024 1:22 PM EDT 11/16/2024 1:25 PM EDT us Kristyn Rossi MD LAB BLOOD BKR ORDERABLES Kelli mayo Result [facility] [address] [place] [address] * CT ABDOMEN (ADRENAL MASS) WITH AND [...] a chronic endobronchialinfectious/inflammatory process. Kristyn Rossi MD IMG CT XSPECIALTY ORDERABLES Final Result * Urinalysis w/reflex Urine Culture (10/18/2024 3:57 PM EDT) COLOR Yellow Yellow [facility] CLARITY Clear [facility] GLUCOSE Negative Negative [facility] BILI Negative Negative [facility] KETONES Negative Negative [facility] SPECIFIC GRAVITY 1.020 1.005 - 1.030 [facility] BLOOD Negative Negative [facility] PH 6.0 5.0 - 8.0 [facility] Protein-UA Negative Negative [facility] NITRITE Negative Negative [facility] Leukocyte esterase, ur Negative Negative [facility] Urine (Urine) 10/18/2024 3:5 7 PM EDT 10/18/2024 4:00 PM EDT Skye Patiño MD LAB URINE ORDERABLES Final Result [facility] [address] [place] [address] * TOTAL PROTEIN CREATININE RATIO, RANDOM URINE (10/18/2024 3:57 PM EDT) URINE TOTAL PROTEIN 12.0 mg/dL [facility] URINE CREATININE 106 mg/dL [facility] URINE TP CRE RATIO 0.11 0 - 0.19 [facility] Urine (Urine) 10/18/2024 3:5 7 PM EDT 10/18/2024 4:00 PM EDT Skye Patiño MD LAB URINE ORDERABLES Final Result [address] [address] * MONOCLONAL PROTEIN STUDY, RANDOM URINE (10/18/2024 3:57 PM EDT) M-Protein Isotope MS, Random, U No monoclonal protein detected. [facility] Comment: (NOTE) ADDITIONAL INFORMATION The submitted sample was assayed by five separate immunopurifications for IgG, IgA, IgM, kappa and lambda. The result reflects the findings of either no monoclonal protein detected or those monoclonal immunoglobulins that were detected. This test was developed and its performance characteristics determined by [facility] in a manner consistent with CLIA requirements. This test has not been cleared or approved by the U.S. Food and Drug Administration. Flag M-Protein Isotope MS, Random, U Negative Negative [facility] [place] Albumin 4.4 mg/dL [facility]/PATH [place] DR Alpha-1 Globulin 1.0 mg/dL [facility]/PATH [place] [address] Alpha-2 Globulin 1.9 mg/dL [facility]PATH [place] [address] Beta Globulin 2.0 mg/dL [facility]/PATH [place] [address] Gamma Globulin 2.5 mg/dL [facility] [place] A/G RATIO 0.60 % [facility]/PATH [place] [address] M SPIKE Test component not applicable or not reported. [facility] [place] M SPIKE Test component not applicable or not reported. [facility] [place] [address] IMPRESSION SEE NOTE [facility] [place] Comment: (NOTE) All fractions present, no apparent M-spike. See Isotype. ADDITIONAL INFORMATION This test has been modified from the email specialist's instructions. Its performance characteristics were determined by [facility] in a manner consistent with CLIA requirements. This test has not been cleared or approved by the U.S. Food and Drug Administration. Protein, Total, Random, U 12 mg/dL [facility] Creatinine, Random, U 109 16 - 326 mg/dL [facility] Protein/Creatinine Ratio 0.11 <0.18 mg/mg [facility] Urine (Urine) 10/18/2024 3:5 7 PM EDT 10/18/2024 4:00 PM EDT Skye Patiño MD URINE ORDERABLES Final Res ult [facility] [address] [place] [address] [facility] [address] [place] [address] * Monoclonal protein study, serum (10/18/2024 3:54 PM EDT) M-protein GK Test component not applicable or not reported. g/dL [facility] [place] M-protein GL Test component not applicable or not reported. g/dL [facility]/PATH [place] [address] M-protein AK Test component not applicable or not reported. g/dL [facility]/PATH [place] [address] M-protein AL Test component not applicable or not reported. g/dL [facility] [place] [address] M-protein MK Test component not applicable or not reported. g/dL [facility] [place] [address] M-protein ML Test component not applicable or not reported. g/dL [facility] [place] [address] Glycosylation Test component not applicable or not reported. [facility] [place] Flag, M-protein Isotype Negative Negative [facility] [place] QMPTS Interpretation No monoclonal protein detected. [facility] Comment: (NOTE) ADDITIONAL INFORMATION The submitted sample was assayed by five separate immunopurifications for IgG, IgA, IgM, kappa and lambda. The result reflects the findings of either no monoclonal protein detected or those monoclonal immunoglobulins that were detected. This test was developed and its performance characteristics determined by [facility] in a manner consistent with CLIA requirements. This test has not been cleared or approved by the U.S. Food and Drug Administration. IgA 103 61 - 356 mg/dL [facility] IgM 122 37 - 286 mg/dL [facility] IgG 1,020 767 - 1,590 mg/dL [facility] Therapeutic Antibody Administered? Unknown [facility] Comment:Corrected on 10/21 A T 1136: previously reported as UNKNOWN Blood 10/18/2024 3:54 PM EDT 10/18/2024 3:57 PM EDT us Skye Patiño MD LAB BLOOD BKR ORDERABLES E dited Result - Final [facility] [address] [place] [address] * Free light chains, serum (10/18/2024 3:54 PM EDT) [place] Free Light Chain 1.69 0.3300 - 1.94 mg/dL [facility] Lambda Free Light Chain 1.34 0.5700 - 2.63 mg/dL [facility] [place]/Lambda FLC Ratio 1.26 0.2600 - 1.65 [facility] Blood 10/18/2024 3:54 PM EDT 10/18/2024 3:57 PM EDT us Skye Patiño MD LAB BLOOD BKR ORDERABLES F inal Result [facility] [address] [place] [address] * (ABNORMAL) Sedimentation rate (ESR) (10/18/2024 3:53 PM EDT) ESR 33(H) 0 - 30 mm/h [facility] Blood 10/18/2024 3:53 PM EDT 10/18/2024 3:58 PM EDT us Skye Patiño MD LAB BLOOD BKR ORDERABLES F inal Result Performing Organization Address City/[facility]/ZIP Co de Phone Number [facility] [address] [place] [address] * (ABNORMAL) CBC (10/18/2024 3:53 PM EDT) WBC 9.07 4.00 - 11.00 K/uL [facility] RBC 3.87(L) 4.00 - 5.20 M/uL [facility] HGB 12.6 12.0 - 16.0 g/dL [facility] HCT 38.0 36.0 - 46.0 % [facility] PLT 215 150 - 450 K/uL [facility] MCV 98.2 80.0 - 100.0 fL [facility] MCH 32.6(H) 27.0 - 31.0 pg [facility] MCHC 33.2 32.0 - 36.0 g/dL [facility] RDW 14.1 11.5 - 14.5 % [facility] MPV 10.4 8.4 - 12.0 fL [facility] NRBC 0.00 0.00 /100 WBCs [facility] ABSOLUTE NRBC 0.00 0.00 K/uL [facility] Blood 10/18/2024 3:5 3 PM EDT 10/18/2024 3:58 PM EDT us Skye Patiño MD LAB BLOOD BKR ORDERABLES F inal Result Performing Organization Address City/[facility]/ZIP Co de Phone Number [address] [address] * (ABNORMAL) C-Reactive Protein (10/18/2024 3:53 PM EDT) C REACTIVE PROTEIN 5.8(H) 0.0 - 4.0 mg/L [facility] Blood 10/18/2024 3:53 PM EDT 10/18/2024 3:58 PM EDT Skye Patiño MD LAB BLOOD BKR ORDERABLES F inal Result Performing Organization Address [facility]/ZIP Co de Phone Number [address] [address] * US Kidneys and Bladder (10/13/2024 9:49 AM EDT) MGB IMG CONCIERGE COMMENT Follow-up CT or MRI of the abdomen when clinically appropriate. [facility] Anatomical Region Laterality Modality Abdomen, Kidney Ultrasound 10/13/2024 9:54 AM EDT Impressions 10/13/2024 10:00 AM EDT 1. No hydronephrosis. 2. Left renal lesions are incompletely characterized, possibly for technical reasons. Follow-up CT or MRI of the abdomen recommended for further characterization when clinically appropriate. A clinically significant result was initiated on 10/13/2024 10:00 AM, Message ID [id number]. Narrative 10/13/2024 10:00 AM EDT US KIDNEYS AND BLADDER Referring clinician's provided indication for this examination in [facility]: Renal failure, acute TECHNIQUE: Kidney Ultrasound. COMPARISON: [...] clinician's provided indication for this examination in [facility]:Renal failure, acute TECHNIQUE: Kidney Ultrasound. COMPARISON: CT [...] was initiated on 10/13/2024 10:00 AM,Message ID [id number]. Kristyn Rossi MD [facility] RENAL Final Result * BD DXA AXIAL (SPINE) WITH HIP (09/08/2023 1:31 PM EDT) Anatomical Region Laterality Modality Bone Density Bone Density 09/08/2023 1:27 PM EDT Impressions 09/08/2023 3:06 PM EDT Interpretation: Osteoporosis. Narrative 09/08/2023 3:06 PM EDT Referred By: KRISTYN ROSSI Indications: Osteoporosis and Long-Term Treatment with Aromatase inhibitors Scanner: [employer] A with serial# of [id number] located at [facility] Bone Density Scan (DXA) 09/08/23 Details [...] -2.5), or Osteoporosis (T-score <= -2.5). At [facility], T-scores are compared to peak bone density [...] Osteoporosis and Long-Term Treatment with Aromataseinhibitors Scanner: [employer] A with serial# of [id number] located at [facility] Bone Density Scan (DXA) 09/08/23 Details of prior DXA scans are available by clicking View Image BMD T- Z- Skeletal Site gm/cm2 score score BMD Change Since Prior Scan ------ ----- PA Spine (L1-L4) 0.896 -1.40 1.20 -0.003 (stable) since12/13/2020 Total Hip (Left) 0.635 -2.50 -0.60 -0.051 (-7.4%)* since12/13/2020 Femoral Neck (Left) 0.523 -2.90 -0.70 -0.032 (-5.8%)* since12/13/2020 ------ ----- * Denotes significant change when [...] -2.5), or Osteoporosis (T-score <= -2.5). At [facility], T-scores are compared to peak bone density [...] Jaquez on 09/08/2023 15:06:09 IMPRESSION: Interpretation: Osteoporosis. us Kristyn Rossi MD IMG BD BONE DENSITY DEXA Kelli l Result * ENDOSCOPY, COLON (07/08/2017 8:19 AM EDT) Narrative Transcriptions Wilmer Vallejo MD - 07/08/2017 8:19 AM EDT Patient Name: Oswaldo Flores Attending MD:: WILMER VALLEJO MD Procedure Date: 07/08/2017 8:19 AM Date of : 1945 Age: 72 Admit Type: Outpatient Gender: Female Room: [facility] Referring MD: VIANCA TRAN MD Exam Type: Colonoscopy Indications: Screening for colorectal malignant neoplasm, Coloncancer screening in patient at increased risk: Family historyof 1st-degree relative with colon polyps, Lastcolonoscopy: 2012 Medications: Monitored Anesthesia Care Procedure: Informed consent was obtained from the patient after discussion of the indications, limitations,alternatives, benefits, and risks of the procedure. Risksspecifically discussed include but are not limited to medication reactions, missed lesions, bleeding, perforation, orthe need for emergent surgery. Throughout the procedure, the patient's blood pressure, pulse, end-tidal CO2, and oxygen saturations were monitored continuously. The Olympus adult variable colonoscope [id number] #4 was introduced through the anus and advanced to the cecum, identified by the appendiceal orifice. The colonoscopywas performed without difficulty. The patient tolerated the procedure well. The quality of the bowel preparationwas good. Complications: No immediate complications. Estimated blood loss:None. Findings: The perianal and digital rectal examinations werenormal. Multiple small-mouthed diverticula were found in the sigmoid colon. The rectum, recto-sigmoid colon, descending colon,splenic flexure, transverse colon, hepatic flexure, ascending colon, cecum, appendiceal orifice, ileocecal valve and rectum (on retroflexion) appeared normal. Impression: - Diverticulosis in the sigmoid colon. - The rectum, recto-sigmoid colon, descending colon, splenic flexure, transverse colon, hepatic flexure, ascending colon, cecum, appendiceal orifice andileocecal valve are normal. - No specimens collected. Recommendation: - Discharge patient to home. - High fiber diet. - Continue present medications. - Repeat colonoscopy in 10 years for screeningpurposes. - You have diverticulosis so please eat a high fiberdiet. WILMER VALLEJO MD 07/08/2017 8:44:04 AM This report has been signed electronically. Number of Addenda: 0 Note Initiated On: 07/08/2017 8:19 AM Procedure Code(s): --- Professional --- 58196, Colonoscopy, flexible; diagnostic, including collection of specimen(s) by brushing or washing, when performed (separateprocedure) --- Technical --- 49079, Colonoscopy, flexible; diagnostic, including collection of specimen(s) by brushing or washing, when performed (separateprocedure) Diagnosis Code(s): --- Professional --- Z12.11, Encounter for screening for malignant neoplasm of colon Z83.71, Family history of colonic polyps K57.30, Diverticulosis of large intestine without perforation orabscess without bleeding --- Technical --- Z12.11, Encounter for screening for malignant neoplasm of colon Z83.71, Family history of colonic polyps K57.30, Diverticulosis of large intestine without perforation orabscess without bleeding CPT copyright 2016 [employer]. All rights reserved. The codes documented in this report are preliminary and upon rides attendant reviewmay be revised to meet current compliance requirements. 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 11/02/2020 3:02 PM * Full Code (Latest Code Status on File) Date Activated Date Inactivated Comments 11/01/2020 7:48 AM Question Answer Comments Code Status Confirmed With: Patient Care Teams Business Liaison Manager Relationship Specialty Start Date End Date Skye Patiño MD [address] [place] [id number] PCP - General Family Medicine 12/03/23 Karolyn Moody MD [address] [place] [id number] General Surgery 11/14/20 Harry Reid MD [address] [place] [id number] [email or web address] Radiation Oncology 11/14/20 Kristyn Rossi MD [address] [place] [id number] Primary Oncologist Medical Oncology 10/11/20 Patrick Lomeli MD [address] [place] [id number] [email or web address] 09/29/23 Neil Lazaro MD [address] [place] [address] [place] [address] Urology 10/12/24 Additional Source Comments The information contained in this document represents components of the legal health record. It is not the complete legal health record.[facility]
== END 2025-01-03 15:09 | disposition home or self-care (01) ==
LOC: HO.HSM 14:47
PROVIDERS: PCP Family Medicine; Visit Provider Nurse Practitioner
DX: G44.51 Hemicrania continua (principal); R51.9 Headache, unspecified
CPT/HCPCS: 99214